=== PATIENT | female | born 1975 | race Caucasian/White ===

== ENCOUNTER 2018-02-02 19:50 | Inpatient (IN) | payer OTHER ==
[2018-02-02] MEDS: SOD CHLORIDE 0.9% 1,000 ML IV (22:34)
[2018-02-02 22:52] LABS: URINE PH (Dip) POC 7.5 (5.0-8.5)
[2018-02-02 22:52] LABS: URINE BLOOD (Dip) POC Negative (NEGATIVE); URINE GLUCOSE (Dip) POC Negative (NEGATIVE); URINE KETONES (Dip) POC Negative (NEGATIVE); URINE LEUKOCYTE EST (Dip) POC Negative (NEGATIVE); URINE NITRITE (Dip) POC Negative (NEGATIVE); URINE TOTAL PROTEIN POC 1+ (NEGATIVE)
[2018-02-02 22:56] LABS: ADD MAN DIFF? NO
[2018-02-02 23:00] LABS: ABNORMAL IP MESSAGE 1; BASOPHILS % 0.1 % (0.0-2.0); EOSINOPHILS # 0.2 10^3/ul (0.0-0.5); EOSINOPHILS % 2.7 % (0.0-7.0); HEMATOCRIT 20.7 % (37.0-47.0); LYMPHOCYTES # 0.6 10^3/ul (0.8-2.9); LYMPHOCYTES % 7.2 % (15.0-51.0); MEAN CORPUSCULAR HEMOGLOBIN 20.5 pg (29.0-33.0); MEAN CORPUSCULAR HGB CONC 29.5 g/dl (32.0-37.0); MEAN CORPUSCULAR VOLUME 69.5 fl (82.0-101.0); MEAN PLATELET VOLUME 9.3 fl (7.4-10.4); MONOCYTE # 0.7 10^3/ul (0.3-0.9); MONOCYTES % 8.2 % (0.0-11.0); NEUTROPHIL # 6.5 10^3/ul (1.6-7.5); NEUTROPHILS % 81.3 % (39.0-77.0); PLATELET COUNT 511 10^3/UL (140-415); RED BLOOD COUNT 2.98 10^6/ul (4.20-5.40); RED CELL DISTRIBUTION WIDTH 15.7 % (11.5-14.5)
[2018-02-02 23:05] LABS: HEMOGLOBIN 6.1 g/dl (12.0-16.0); POSITIVE DIFF @See below
[2018-02-02 23:20] LABS: INR 0.87; PARTIAL THROMBOPLASTIN TIME 36.4 Sec (25.0-35.0); PROTIME 11.9 Sec (11.9-14.9); PT RATIO 0.9
[2018-02-02 23:24] LABS: ALANINE AMINOTRANSFERASE 32 IU/L (13-69); ALBUMIN 4.1 g/dl (3.3-4.9); ALBUMIN/GLOBULIN RATIO 1.17; ALKALINE PHOSPHATASE 89 IU/L (42-121); ANION GAP 24 (8-16); ASPARTATE AMINO TRANSFERASE 41 IU/L (15-46); BLOOD UREA NITROGEN 25 mg/dl (7-20); CALCIUM 9.3 mg/dl (8.4-10.2); CHLORIDE 66 mmol/L (97-110); CREATININE 1.11 mg/dl (0.44-1.00); GLUCOSE 128 mg/dl (70-220); SODIUM 128 mmol/L (135-144); TOTAL PROTEIN 7.6 g/dl (6.1-8.1)
[2018-02-02 23:30] LABS: POTASSIUM 2.3 mmol/L (3.5-5.1)
[2018-02-02 23:33] LABS: CARBON DIOXIDE 48 mmol/L (21-31)
[2018-02-02 23:39] LABS: TROPONIN-I < 0.012 ng/ml (0.00-0.12)
[2018-02-03] MEDS ORDERED: ACETAMINOPHEN 325 MG TAB PO (01:00)
[2018-02-03] MEDS ORDERED: ONDANSETRON 4 MG INJ IV (01:00)
[2018-02-03] MEDS: POTASSIUM CHLORIDE 100 ML IVPB ×4 (01:44→08:47)
[2018-02-03 04:13] LABS: IMMEDIATE SPIN CROSSMATCH 1 2
[2018-02-03] MEDS: POTASSIUM CHLORIDE 40 MEQ in SOD CHLORIDE 0.9% 1,000 ML IV ×3 (07:00→20:36)
[2018-02-03 10:19] LABS: OCCULT BLOOD STOOL POSITIVE (NEGATIVE)
[2018-02-03 15:28] LABS: ADD MAN DIFF? NO
[2018-02-03 15:31] LABS: ABNORMAL IP MESSAGE 1; BASOPHILS % 0.4 % (0.0-2.0); EOSINOPHILS # 0.3 10^3/ul (0.0-0.5); EOSINOPHILS % 4.9 % (0.0-7.0); HEMATOCRIT 29.4 % (37.0-47.0); HEMOGLOBIN 9.4 g/dl (12.0-16.0); LYMPHOCYTES # 0.6 10^3/ul (0.8-2.9); LYMPHOCYTES % 8.5 % (15.0-51.0); MEAN CORPUSCULAR HEMOGLOBIN 24.5 pg (29.0-33.0); MEAN CORPUSCULAR VOLUME 76.8 fl (82.0-101.0); MEAN PLATELET VOLUME 9.4 fl (7.4-10.4); MONOCYTE # 0.5 10^3/ul (0.3-0.9); MONOCYTES % 7.5 % (0.0-11.0); NEUTROPHIL # 5.5 10^3/ul (1.6-7.5); NEUTROPHILS % 78.3 % (39.0-77.0); PLATELET COUNT 390 10^3/UL (140-415); RED BLOOD COUNT 3.83 10^6/ul (4.20-5.40); RED CELL DISTRIBUTION WIDTH 17.4 % (11.5-14.5)
[2018-02-03 15:40] LABS: POSITIVE DIFF @See below
[2018-02-03 15:51] LABS: INR 0.91; PROTIME 12.3 Sec (11.9-14.9)
[2018-02-03 15:52] LABS: PARTIAL THROMBOPLASTIN TIME 26.7 Sec (25.0-35.0)
[2018-02-03] MEDS ORDERED: SOD CHLORIDE 0.9% 1,000 ML IV (16:00)
[2018-02-03 16:01] LABS: ANION GAP 14 (8-16); BLOOD UREA NITROGEN 18 mg/dl (7-20); CALCIUM 8.7 mg/dl (8.4-10.2); CARBON DIOXIDE 40 mmol/L (21-31); CHLORIDE 88 mmol/L (97-110); GLUCOSE 140 mg/dl (70-220); POTASSIUM 3.6 mmol/L (3.5-5.1); SODIUM 138 mmol/L (135-144)
[2018-02-03] MEDS: CYANOCOBALAMIN 1000 MCG INJ IM (17:24)
[2018-02-03] MEDS: hydrOXYzine HCL 10 MG TAB PO (20:51)
[2018-02-03] MEDS: POTASSIUM CHLORIDE (SR) 20 MEQ TAB PO (20:51)
[2018-02-03] MEDS: FAMOTIDINE 20 MG TAB PO (20:51)
[2018-02-03] MEDS: MAGNESIUM OXIDE 400 MG TAB PO (20:51)
[2018-02-03] MEDS: HYDROCORTISONE 1% 28 GM CR TOP (20:52)
[2018-02-03] MEDS ORDERED: FLUOCINONIDE 0.05% CR 30GM TUBE TOP (21:00)
[2018-02-03] MEDS: FLUOCINONIDE 0.05% 15 GM CR TOP (22:47)
[2018-02-04] MEDS: POTASSIUM CHLORIDE 40 MEQ in SOD CHLORIDE 0.9% 1,000 ML IV ×2 (03:20→21:17)
[2018-02-04] MEDS: FAMOTIDINE 20 MG TAB PO ×2 (09:10→20:46)
[2018-02-04] MEDS: MAGNESIUM OXIDE 400 MG TAB PO ×2 (09:10→20:47)
[2018-02-04] MEDS: CHOLECALCIFEROL 2,000 UNIT CAP PO (09:10)
[2018-02-04] MEDS: POTASSIUM CHLORIDE (SR) 20 MEQ TAB PO ×2 (09:11→20:47)
[2018-02-04] MEDS: FOLIC ACID 0.4 MG TAB PO (09:11)
[2018-02-04] MEDS: FLUOCINONIDE 0.05% 15 GM CR TOP ×3 (09:12→20:54)
[2018-02-04] MEDS: HYDROCORTISONE 1% 28 GM CR TOP ×2 (09:12→20:54)
[2018-02-04 14:34] LABS: MAGNESIUM 1.7 mg/dl (1.7-2.5)
[2018-02-04] MEDS: hydrOXYzine HCL 10 MG TAB PO (20:47)
[2018-02-04] MEDS: METHYLPREDNISOLONE 40 MG INJ IV (21:00)
[2018-02-04] MEDS ORDERED: FLUOCINONIDE 0.05% 15 GM CR TOP (21:00)
[2018-02-04] MEDS: LORATADINE 10 MG TAB PO (22:00)
[2018-02-04] MEDS: FLUOCINONIDE 0.05% 15 GM OINT TOP (22:00)
[2018-02-05] MEDS: POTASSIUM CHLORIDE 40 MEQ in SOD CHLORIDE 0.9% 1,000 ML IV (05:29)
[2018-02-05 07:26] LABS: ADD MAN DIFF? NO
[2018-02-05 07:35] LABS: ABNORMAL IP MESSAGE 1; BASOPHILS % 0.1 % (0.0-2.0); HEMATOCRIT 30.9 % (37.0-47.0); HEMOGLOBIN 9.4 g/dl (12.0-16.0); LYMPHOCYTES # 0.3 10^3/ul (0.8-2.9); LYMPHOCYTES % 3.3 % (15.0-51.0); MEAN CORPUSCULAR HEMOGLOBIN 24.6 pg (29.0-33.0); MEAN CORPUSCULAR HGB CONC 30.4 g/dl (32.0-37.0); MEAN CORPUSCULAR VOLUME 80.9 fl (82.0-101.0); MEAN PLATELET VOLUME 9.2 fl (7.4-10.4); MONOCYTES % 0.4 % (0.0-11.0); NEUTROPHIL # 8.8 10^3/ul (1.6-7.5); NEUTROPHILS % 95.8 % (39.0-77.0); PLATELET COUNT 330 10^3/UL (140-415); RED BLOOD COUNT 3.82 10^6/ul (4.20-5.40); RED CELL DISTRIBUTION WIDTH 18.8 % (11.5-14.5)
[2018-02-05 07:35] LABS: WHITE BLOOD COUNT 9.2 10^3/ul (4.8-10.8)
[2018-02-05 07:40] LABS: POSITIVE DIFF @See below
[2018-02-05 07:44] LABS: ANION GAP 15 (8-16); BLOOD UREA NITROGEN 23 mg/dl (7-20); CALCIUM 8.7 mg/dl (8.4-10.2); CARBON DIOXIDE 26 mmol/L (21-31); CHLORIDE 110 mmol/L (97-110); CREATININE 0.81 mg/dl (0.44-1.00); GLUCOSE 164 mg/dl (70-220); POTASSIUM 5.3 mmol/L (3.5-5.1); SODIUM 146 mmol/L (135-144)
[2018-02-05 07:45] LABS: MAGNESIUM 1.6 mg/dl (1.7-2.5)
[2018-02-05] MEDS: METHYLPREDNISOLONE 40 MG INJ IV ×2 (08:52→21:10)
[2018-02-05] MEDS: FOLIC ACID 0.4 MG TAB PO (08:53)
[2018-02-05] MEDS: POTASSIUM CHLORIDE (SR) 20 MEQ TAB PO (08:53)
[2018-02-05] MEDS: FAMOTIDINE 20 MG TAB PO ×2 (08:53→21:10)
[2018-02-05] MEDS: CHOLECALCIFEROL 2,000 UNIT CAP PO (08:53)
[2018-02-05] MEDS: MAGNESIUM OXIDE 400 MG TAB PO ×2 (08:53→21:10)
[2018-02-05] MEDS: LORATADINE 10 MG TAB PO (08:53)
[2018-02-05] MEDS: HYDROCORTISONE 1% 28 GM CR TOP ×2 (09:04→22:17)
[2018-02-05] MEDS: FLUOCINONIDE 0.05% 15 GM OINT TOP ×3 (09:08→22:16)
[2018-02-05] MEDS: SOD CHLORIDE 0.9% 1,000 ML IV (10:39)
[2018-02-05] MEDS: NA POLYST SULFON 15 GM/60 ML BTL PO (10:39)
[2018-02-05 16:53] LABS: ANION GAP 16 (8-16); BLOOD UREA NITROGEN 22 mg/dl (7-20); CALCIUM 8.9 mg/dl (8.4-10.2); CARBON DIOXIDE 26 mmol/L (21-31); CHLORIDE 109 mmol/L (97-110); GLUCOSE 148 mg/dl (70-220); POTASSIUM 4.5 mmol/L (3.5-5.1); SODIUM 146 mmol/L (135-144)
[2018-02-05] MEDS: LORAZEPAM 2 MG INJ IV (17:38)
[2018-02-05] MEDS: MAGNESIUM SULFATE 1 GM/D5W 100 ML IVPB (17:40)
[2018-02-05] MEDS: hydrOXYzine HCL 10 MG TAB PO (21:19)
[2018-02-06] MEDS: SOD CHLORIDE 0.9% 1,000 ML IV ×2 (05:14→19:20)
[2018-02-06 05:32] LABS: ADD MAN DIFF? NO
[2018-02-06 05:35] LABS: ABNORMAL IP MESSAGE 1; BASOPHILS % 0.1 % (0.0-2.0); HEMATOCRIT 31.7 % (37.0-47.0); HEMOGLOBIN 9.6 g/dl (12.0-16.0); LYMPHOCYTES # 0.4 10^3/ul (0.8-2.9); MEAN CORPUSCULAR HEMOGLOBIN 24.7 pg (29.0-33.0); MEAN CORPUSCULAR HGB CONC 30.3 g/dl (32.0-37.0); MEAN CORPUSCULAR VOLUME 81.7 fl (82.0-101.0); MEAN PLATELET VOLUME 9.1 fl (7.4-10.4); MONOCYTE # 0.2 10^3/ul (0.3-0.9); MONOCYTES % 1.6 % (0.0-11.0); NEUTROPHIL # 13.5 10^3/ul (1.6-7.5); NEUTROPHILS % 94.7 % (39.0-77.0); PLATELET COUNT 320 10^3/UL (140-415); RED BLOOD COUNT 3.88 10^6/ul (4.20-5.40); RED CELL DISTRIBUTION WIDTH 19.9 % (11.5-14.5)
[2018-02-06 05:35] LABS: WHITE BLOOD COUNT 14.2 10^3/ul (4.8-10.8)
[2018-02-06 05:50] LABS: POSITIVE DIFF @See below
[2018-02-06 06:02] LABS: ANION GAP 14 (8-16); BLOOD UREA NITROGEN 24 mg/dl (7-20); CALCIUM 9.4 mg/dl (8.4-10.2); CARBON DIOXIDE 26 mmol/L (21-31); CHLORIDE 110 mmol/L (97-110); CREATININE 0.77 mg/dl (0.44-1.00); GLUCOSE 111 mg/dl (70-220); POTASSIUM 5.4 mmol/L (3.5-5.1); SODIUM 145 mmol/L (135-144)
[2018-02-06] MEDS: FOLIC ACID 0.4 MG TAB PO (09:13)
[2018-02-06] MEDS: LORATADINE 10 MG TAB PO (09:13)
[2018-02-06] MEDS: MAGNESIUM OXIDE 400 MG TAB PO ×2 (09:15→20:43)
[2018-02-06] MEDS: FAMOTIDINE 20 MG TAB PO ×2 (09:15→20:43)
[2018-02-06] MEDS: CHOLECALCIFEROL 2,000 UNIT CAP PO (09:15)
[2018-02-06] MEDS: NA POLYST SULFON 15 GM/60 ML BTL PO (09:16)
[2018-02-06] MEDS: METHYLPREDNISOLONE 40 MG INJ IV ×2 (09:17→20:43)
[2018-02-06] MEDS: FLUOCINONIDE 0.05% 15 GM OINT TOP ×3 (09:20→20:44)
[2018-02-06] MEDS: HYDROCORTISONE 1% 28 GM CR TOP ×2 (09:21→20:44)
[2018-02-07] MEDS: SOD CHLORIDE 0.9% 1,000 ML IV ×2 (04:48→23:47)
[2018-02-07 07:11] LABS: ANION GAP 13 (8-16); BLOOD UREA NITROGEN 21 mg/dl (7-20); CARBON DIOXIDE 27 mmol/L (21-31); CHLORIDE 104 mmol/L (97-110); CREATININE 0.71 mg/dl (0.44-1.00); GLUCOSE 111 mg/dl (70-220); POTASSIUM 4.3 mmol/L (3.5-5.1); SODIUM 140 mmol/L (135-144)
[2018-02-07] MEDS: CHOLECALCIFEROL 2,000 UNIT CAP PO (08:27)
[2018-02-07] MEDS: HYDROCORTISONE 1% 28 GM CR TOP ×2 (08:27→20:18)
[2018-02-07] MEDS: FLUOCINONIDE 0.05% 15 GM OINT TOP ×3 (08:27→20:18)
[2018-02-07] MEDS: FAMOTIDINE 20 MG TAB PO ×2 (08:27→20:24)
[2018-02-07] MEDS: MAGNESIUM OXIDE 400 MG TAB PO ×2 (08:27→20:24)
[2018-02-07] MEDS: FOLIC ACID 0.4 MG TAB PO (08:27)
[2018-02-07] MEDS: LORATADINE 10 MG TAB PO (08:27)
[2018-02-07] MEDS: METHYLPREDNISOLONE 40 MG INJ IV ×2 (09:21→20:24)
[2018-02-07] MEDS ORDERED: PROPOFOL 40 ML (11:54)
[2018-02-07] MEDS ORDERED: LIDOCAINE 2% (SDV) 5 ML INJ (11:54)
[2018-02-07] MEDS: DIPHENHYDRAMINE 50 MG INJ IV (23:47)
[2018-02-08 05:19] LABS: ANION GAP 14 (8-16); BLOOD UREA NITROGEN 23 mg/dl (7-20); CALCIUM 8.2 mg/dl (8.4-10.2); CARBON DIOXIDE 25 mmol/L (21-31); CHLORIDE 106 mmol/L (97-110); CREATININE 0.62 mg/dl (0.44-1.00); GLUCOSE 116 mg/dl (70-220); POTASSIUM 3.9 mmol/L (3.5-5.1); SODIUM 141 mmol/L (135-144)
[2018-02-08 07:11] LABS: ADD MAN DIFF? NO
[2018-02-08 07:13] LABS: WHITE BLOOD COUNT 8.4 10^3/ul (4.8-10.8)
[2018-02-08 07:13] LABS: ABNORMAL IP MESSAGE 1; HEMATOCRIT 29.1 % (37.0-47.0); HEMOGLOBIN 8.9 g/dl (12.0-16.0); LYMPHOCYTES # 0.4 10^3/ul (0.8-2.9); LYMPHOCYTES % 4.9 % (15.0-51.0); MEAN CORPUSCULAR HEMOGLOBIN 24.5 pg (29.0-33.0); MEAN CORPUSCULAR HGB CONC 30.6 g/dl (32.0-37.0); MEAN CORPUSCULAR VOLUME 80.2 fl (82.0-101.0); MEAN PLATELET VOLUME 9.5 fl (7.4-10.4); MONOCYTE # 0.2 10^3/ul (0.3-0.9); MONOCYTES % 2.3 % (0.0-11.0); NEUTROPHIL # 7.7 10^3/ul (1.6-7.5); NEUTROPHILS % 92.2 % (39.0-77.0); PLATELET COUNT 240 10^3/UL (140-415); RED BLOOD COUNT 3.63 10^6/ul (4.20-5.40); RED CELL DISTRIBUTION WIDTH 19.2 % (11.5-14.5)
[2018-02-08 07:20] LABS: POSITIVE DIFF @See below
[2018-02-08] MEDS: FAMOTIDINE 20 MG TAB PO ×2 (08:50→20:49)
[2018-02-08] MEDS: LORATADINE 10 MG TAB PO (08:50)
[2018-02-08] MEDS: HYDROCORTISONE 1% 28 GM CR TOP ×2 (08:51→20:48)
[2018-02-08] MEDS: METHYLPREDNISOLONE 40 MG INJ IV ×2 (08:51→20:49)
[2018-02-08] MEDS: MAGNESIUM OXIDE 400 MG TAB PO ×2 (08:51→20:49)
[2018-02-08] MEDS: FOLIC ACID 0.4 MG TAB PO (08:51)
[2018-02-08] MEDS: FLUOCINONIDE 0.05% 15 GM OINT TOP ×3 (08:51→20:48)
[2018-02-08] MEDS: CHOLECALCIFEROL 2,000 UNIT CAP PO (08:51)
[2018-02-08] MEDS: SOD CHLORIDE 0.9% 1,000 ML IV (21:20)
[2018-02-08] MEDS: HEPARIN (100 UNITS/ML) 5 ML SYG CATHETER (22:27)
== END 2018-02-08 22:50 | disposition home health service (06) | DRG 812 ==
LOC: TEL 02-03 00:40 → PP2 02-05 14:40 → E/R 19:50 → TEL 02-03 02:57 → PP2 02-05 23:53
PROC: 0DB68ZX Excision of Stomach, Via Natural or Artificial Opening Endoscopic, Diagnostic (ICD-10-PCS; principal; 2018-02-07 11:08)
PROC: 30233N1 Transfusion of Nonautologous Red Blood Cells into Peripheral Vein, Percutaneous Approach (ICD-10-PCS; 2018-02-07 11:08)
DX: D62 Acute posthemorrhagic anemia (principal); N17.9 Acute kidney failure, unspecified; E87.1 Hypo-osmolality and hyponatremia; E87.3 Alkalosis; E87.0 Hyperosmolality and hypernatremia; E87.2 Acidosis; E86.0 Dehydration; E87.6 Hypokalemia; K29.60 Other gastritis without bleeding; Z90.49 Acquired absence of other specified parts of digestive tract; R11.0 Nausea; E53.8 Deficiency of other specified B group vitamins; Z93.2 Ileostomy status
CPT/HCPCS: 36415; 36430; 80048; 80053; 81003; 81025; 82270; 83735; 84484; 85025; 85610; 85730; 86850; 86900; 86901; 86920; 88305; 88312; 93005; 99291-25

== ENCOUNTER 2018-06-16 19:58 | Inpatient (IN) | payer OTHER ==
[2018-06-16] MEDS: morphine 4 MG/ML VIAL IV (20:37)
[2018-06-16] MEDS: LACTATED RINGER'S 1,000 ML IV ×2 (21:01→22:48)
[2018-06-16 21:03] LABS: ADD MAN DIFF? NO
[2018-06-16 21:22] LABS: WHITE BLOOD COUNT 12.6 10^3/ul (4.8-10.8)
[2018-06-16 21:22] LABS: BASOPHILS % 0.3 % (0.0-2.0); EOSINOPHILS # 0.9 10^3/ul (0.0-0.5); EOSINOPHILS % 7.4 % (0.0-7.0); HEMATOCRIT 39.3 % (37.0-47.0); HEMOGLOBIN 12.1 g/dl (12.0-16.0); LYMPHOCYTES # 0.6 10^3/ul (0.8-2.9); LYMPHOCYTES % 4.9 % (15.0-51.0); MEAN CORPUSCULAR HEMOGLOBIN 27.6 pg (29.0-33.0); MEAN CORPUSCULAR HGB CONC 30.8 g/dl (32.0-37.0); MEAN CORPUSCULAR VOLUME 89.5 fl (82.0-101.0); MEAN PLATELET VOLUME 9.2 fl (7.4-10.4); MONOCYTE # 0.5 10^3/ul (0.3-0.9); MONOCYTES % 4.1 % (0.0-11.0); NEUTROPHIL # 10.4 10^3/ul (1.6-7.5); NEUTROPHILS % 82.4 % (39.0-77.0); PLATELET COUNT 641 10^3/UL (140-415); RED BLOOD COUNT 4.39 10^6/ul (4.20-5.40); RED CELL DISTRIBUTION WIDTH 14.8 % (11.5-14.5)
[2018-06-16 21:44] LABS: ALANINE AMINOTRANSFERASE 47 IU/L (13-69); ALBUMIN 4.9 g/dl (3.3-4.9); ALBUMIN/GLOBULIN RATIO 1.28; ALKALINE PHOSPHATASE 83 IU/L (42-121); ANION GAP 19 (8-16); ASPARTATE AMINO TRANSFERASE 49 IU/L (15-46); BILIRUBIN,INDIRECT 0.1 mg/dl (0-1.1); BILIRUBIN,TOTAL 0.1 mg/dl (0.2-1.3); BLOOD UREA NITROGEN 42 mg/dl (7-20); CALCIUM 9.7 mg/dl (8.4-10.2); CARBON DIOXIDE 25 mmol/L (21-31); CHLORIDE 91 mmol/L (97-110); CREATININE 3.79 mg/dl (0.44-1.00); GLUCOSE 288 mg/dl (70-220); LIPASE 73 U/L (23-300); POTASSIUM 5.2 mmol/L (3.5-5.1); SODIUM 130 mmol/L (135-144); TOTAL PROTEIN 8.7 g/dl (6.1-8.1)
[2018-06-16 21:54] LABS: LACTIC ACID 4.1 mmol/L (0.5-2.0)
[2018-06-16 21:54] LABS: TROPONIN-I < 0.010 ng/ml (0.000-0.120)
[2018-06-16 22:18] LABS: INR 0.87; PROTIME 11.9 Sec (11.9-14.9); PT RATIO 0.9
[2018-06-16 22:19] LABS: PARTIAL THROMBOPLASTIN TIME 33.1 Sec (25.0-35.0)
[2018-06-16 22:25] LABS: ADD UMIC YES; UR ASCORBIC ACID NEGATIVE (NEGATIVE); UR BACTERIA MODERATE /HPF (NONE SEEN); UR BILIRUBIN (Dip) 2+ mg/dL (NEGATIVE); UR BLOOD (Dip) NEGATIVE (NEGATIVE); UR CLARITY CLOUDY (CLEAR); UR COLOR AMBER (YELLOW); UR GLUCOSE (Dip) NEGATIVE (NEGATIVE); UR HYALINE CAST MODERATE /HPF (NONE SEEN); UR KETONES (Dip) TRACE mg/dL (NEGATIVE); UR LEUKOCYTE ESTERASE (Dip) 1+ Leu/ul (NEGATIVE); UR MUCUS FEW /HPF (NONE SEEN); UR NITRITE (Dip) NEGATIVE (NEGATIVE); UR NONSQUAMOUS EPITHELIAL CELL 1 /HPF (NONE SEEN); UR RBC 2 /HPF (0-5); UR SPECIFIC GRAVITY (Dip) 1.024 (1.003-1.030); UR SQUAMOUS EPITHELIAL CELL MODERATE /HPF (FEW); UR TOTAL PROTEIN (Dip) 2+ mg/dl (NEGATIVE); UR UROBILINOGEN (Dip) 2+ mg/dL (NEGATIVE); UR WBC 9 /HPF (0-5)
[2018-06-16] MEDS ORDERED: NACL 0.9% 3 ML SYG IV (23:00)
[2018-06-16] MEDS ORDERED: morphine 2 MG INJ IV (23:00)
[2018-06-16] MEDS: CEFEPIME 1GM/50 ML (PMX) 50 ML IVPB (23:02)
[2018-06-16] MEDS: SOD CHLORIDE 0.9% 1,000 ML IV (23:24)
[2018-06-17] MEDS: SOD CHLORIDE 0.9% 1,000 ML IV ×4 (00:21→22:35)
[2018-06-17 03:10] LABS: LACTIC ACID 3.1 mmol/L (0.5-2.0)
[2018-06-17] MEDS ORDERED: VITAMIN A & D 5 GM OINT PACKET TOP ×2 (04:20→15:04)
[2018-06-17 07:34] LABS: ADD MAN DIFF? NO
[2018-06-17 07:50] LABS: HEMOGLOBIN A1C 5.1 % (0-5.9)
[2018-06-17 07:58] LABS: ALANINE AMINOTRANSFERASE 37 IU/L (13-69); ALBUMIN 2.4 g/dl (3.3-4.9); ALBUMIN/GLOBULIN RATIO 0.92; ALKALINE PHOSPHATASE 46 IU/L (42-121); ANION GAP 6 (8-16); ASPARTATE AMINO TRANSFERASE 27 IU/L (15-46); BILIRUBIN,INDIRECT 0.2 mg/dl (0-1.1); BILIRUBIN,TOTAL 0.2 mg/dl (0.2-1.3); BLOOD UREA NITROGEN 26 mg/dl (7-20); CALCIUM 6.1 mg/dl (8.4-10.2); CARBON DIOXIDE 20 mmol/L (21-31); CHLORIDE 116 mmol/L (97-110); CREATININE 1.11 mg/dl (0.44-1.00); GLUCOSE 72 mg/dl (70-220); POTASSIUM 3.3 mmol/L (3.5-5.1); SODIUM 139 mmol/L (135-144)
[2018-06-17 08:11] LABS: BASOPHILS % 0.5 % (0.0-2.0); EOSINOPHILS # 1.5 10^3/ul (0.0-0.5); EOSINOPHILS % 17.5 % (0.0-7.0); HEMATOCRIT 33.7 % (37.0-47.0); HEMOGLOBIN 10.6 g/dl (12.0-16.0); LYMPHOCYTES # 0.8 10^3/ul (0.8-2.9); LYMPHOCYTES % 9.5 % (15.0-51.0); MEAN CORPUSCULAR HEMOGLOBIN 28.3 pg (29.0-33.0); MEAN CORPUSCULAR HGB CONC 31.5 g/dl (32.0-37.0); MEAN CORPUSCULAR VOLUME 90.1 fl (82.0-101.0); MEAN PLATELET VOLUME 8.8 fl (7.4-10.4); MONOCYTE # 0.6 10^3/ul (0.3-0.9); MONOCYTES % 6.9 % (0.0-11.0); NEUTROPHIL # 5.5 10^3/ul (1.6-7.5); NEUTROPHILS % 64.8 % (39.0-77.0); PLATELET COUNT 462 10^3/UL (140-415); RED BLOOD COUNT 3.74 10^6/ul (4.20-5.40); RED CELL DISTRIBUTION WIDTH 15.3 % (11.5-14.5)
[2018-06-17 08:11] LABS: WHITE BLOOD COUNT 8.5 10^3/ul (4.8-10.8)
[2018-06-17] MEDS: FAMOTIDINE 20 MG INJ IV (09:42)
[2018-06-17] MEDS: ENOXAPARIN 30 MG/0.3 ML SYG SC (09:48)
[2018-06-17] MEDS: CYANOCOBALAMIN 1000 MCG INJ IM (20:49)
[2018-06-17] MEDS: MAGNESIUM OXIDE 400 MG TAB PO (20:50)
[2018-06-17] MEDS: FAMOTIDINE 20 MG TAB PO (20:50)
[2018-06-17] MEDS: FLUTICASONE 0.05% 16 GM NAS SPRAY NASAL (20:50)
[2018-06-17] MEDS: FLUOCINONIDE 0.05% CR 30GM TUBE TOP (20:51)
[2018-06-17] MEDS: hydrOXYzine HCL 10 MG TAB NGT (20:56)
[2018-06-17] MEDS: ALBUTEROL HFA 8 GM INHALER INH (20:59)
[2018-06-18] MEDS: ALBUTEROL HFA 8 GM INHALER INH ×6 (01:00→21:10)
[2018-06-18] MEDS ORDERED: VANCOMYCIN IV PER PHARMACY XX (01:30)
[2018-06-18] MEDS: VANCOMYCIN 750 MG in SOD CHLORIDE 0.9% 150 ML IVPB (02:45)
[2018-06-18] MEDS: SOD CHLORIDE 0.9% 1,000 ML IV ×3 (06:30→22:35)
[2018-06-18 08:18] LABS: ADD MAN DIFF? NO
[2018-06-18 08:21] LABS: WHITE BLOOD COUNT 5.6 10^3/ul (4.8-10.8)
[2018-06-18 08:21] LABS: ABNORMAL IP MESSAGE 1; BASOPHILS % 0.7 % (0.0-2.0); EOSINOPHILS # 1.4 10^3/ul (0.0-0.5); EOSINOPHILS % 25.3 % (0.0-7.0); HEMATOCRIT 30.9 % (37.0-47.0); HEMOGLOBIN 9.3 g/dl (12.0-16.0); LYMPHOCYTES # 0.5 10^3/ul (0.8-2.9); LYMPHOCYTES % 8.6 % (15.0-51.0); MEAN CORPUSCULAR HEMOGLOBIN 27.9 pg (29.0-33.0); MEAN CORPUSCULAR HGB CONC 30.1 g/dl (32.0-37.0); MEAN CORPUSCULAR VOLUME 92.8 fl (82.0-101.0); MEAN PLATELET VOLUME 8.8 fl (7.4-10.4); MONOCYTE # 0.4 10^3/ul (0.3-0.9); MONOCYTES % 7.4 % (0.0-11.0); NEUTROPHIL # 3.2 10^3/ul (1.6-7.5); NEUTROPHILS % 57.3 % (39.0-77.0); PLATELET COUNT 398 10^3/UL (140-415); RED BLOOD COUNT 3.33 10^6/ul (4.20-5.40); RED CELL DISTRIBUTION WIDTH 15.2 % (11.5-14.5)
[2018-06-18 08:28] LABS: POSITIVE DIFF @See below
[2018-06-18 08:38] LABS: ANION GAP 9 (8-16); BLOOD UREA NITROGEN 20 mg/dl (7-20); CALCIUM 8.3 mg/dl (8.4-10.2); CARBON DIOXIDE 24 mmol/L (21-31); CHLORIDE 111 mmol/L (97-110); CREATININE 0.85 mg/dl (0.44-1.00); GLUCOSE 92 mg/dl (70-220); POTASSIUM 4.1 mmol/L (3.5-5.1); SODIUM 140 mmol/L (135-144)
[2018-06-18] MEDS: FAMOTIDINE 20 MG INJ IV (09:00)
[2018-06-18] MEDS ORDERED: FOLIC ACID 0.4 MG TAB PO (09:00)
[2018-06-18] MEDS: hydrOXYzine HCL 10 MG TAB NGT ×3 (09:20→21:10)
[2018-06-18] MEDS: FAMOTIDINE 20 MG TAB PO ×2 (09:20→21:10)
[2018-06-18] MEDS: FLUTICASONE 0.05% 16 GM NAS SPRAY NASAL ×2 (09:21→21:10)
[2018-06-18] MEDS: CHOLECALCIFEROL 2,000 UNIT CAP PO (09:21)
[2018-06-18] MEDS: FOLIC ACID 1 MG TAB PO (09:21)
[2018-06-18] MEDS: MAGNESIUM OXIDE 400 MG TAB PO ×2 (09:21→21:10)
[2018-06-18] MEDS: FLUOCINONIDE 0.05% CR 30GM TUBE TOP ×3 (09:22→21:12)
[2018-06-18] MEDS: ENOXAPARIN 30 MG/0.3 ML SYG SC (09:30)
[2018-06-19] MEDS: SOD CHLORIDE 0.9% 1,000 ML IV ×3 (00:29→22:35)
[2018-06-19] MEDS: ALBUTEROL HFA 8 GM INHALER INH ×6 (01:31→21:00)
[2018-06-19] MEDS: VANCOMYCIN 1 GM 250 ML IVPB (01:31)
[2018-06-19] MEDS ORDERED: VANCOMYCIN 500MG/NS (PMX) 100 ML IVPB (02:00)
[2018-06-19] MEDS: FAMOTIDINE 20 MG INJ IV (09:00)
[2018-06-19 09:03] LABS: ADD MAN DIFF? NO
[2018-06-19 09:12] LABS: WHITE BLOOD COUNT 4.3 10^3/ul (4.8-10.8)
[2018-06-19 09:12] LABS: ABNORMAL IP MESSAGE 1; BASOPHILS % 0.7 % (0.0-2.0); EOSINOPHILS % 22.9 % (0.0-7.0); HEMATOCRIT 28.2 % (37.0-47.0); HEMOGLOBIN 8.5 g/dl (12.0-16.0); LYMPHOCYTES # 0.6 10^3/ul (0.8-2.9); LYMPHOCYTES % 13.6 % (15.0-51.0); MEAN CORPUSCULAR HEMOGLOBIN 28.1 pg (29.0-33.0); MEAN CORPUSCULAR HGB CONC 30.1 g/dl (32.0-37.0); MEAN CORPUSCULAR VOLUME 93.4 fl (82.0-101.0); MEAN PLATELET VOLUME 9.3 fl (7.4-10.4); MONOCYTE # 0.3 10^3/ul (0.3-0.9); MONOCYTES % 7.9 % (0.0-11.0); NEUTROPHIL # 2.3 10^3/ul (1.6-7.5); NEUTROPHILS % 54.4 % (39.0-77.0); PLATELET COUNT 354 10^3/UL (140-415); RED BLOOD COUNT 3.02 10^6/ul (4.20-5.40); RED CELL DISTRIBUTION WIDTH 15.5 % (11.5-14.5)
[2018-06-19 09:18] LABS: POSITIVE DIFF @See below
[2018-06-19 09:41] LABS: ANION GAP 7 (8-16); BLOOD UREA NITROGEN 15 mg/dl (7-20); CALCIUM 8.2 mg/dl (8.4-10.2); CARBON DIOXIDE 25 mmol/L (21-31); CHLORIDE 113 mmol/L (97-110); CREATININE 0.71 mg/dl (0.44-1.00); GLUCOSE 80 mg/dl (70-220); POTASSIUM 3.8 mmol/L (3.5-5.1); SODIUM 141 mmol/L (135-144)
[2018-06-19] MEDS: FOLIC ACID 1 MG TAB PO (09:49)
[2018-06-19] MEDS: FAMOTIDINE 20 MG TAB PO ×2 (09:49→21:00)
[2018-06-19] MEDS: hydrOXYzine HCL 10 MG TAB NGT ×3 (09:49→21:00)
[2018-06-19] MEDS: MAGNESIUM OXIDE 400 MG TAB PO ×2 (09:49→21:00)
[2018-06-19] MEDS: CHOLECALCIFEROL 2,000 UNIT CAP PO (09:49)
[2018-06-19] MEDS: FLUTICASONE 0.05% 16 GM NAS SPRAY NASAL ×2 (09:50→21:00)
[2018-06-19] MEDS: FLUOCINONIDE 0.05% CR 30GM TUBE TOP ×3 (09:51→21:00)
[2018-06-19] MEDS: ENOXAPARIN 30 MG/0.3 ML SYG SC (09:54)
[2018-06-19] MEDS ORDERED: morphine LIQ (10 MG/5 ML) CUP PO (13:00)
[2018-06-20] MEDS: ALBUTEROL HFA 8 GM INHALER INH ×6 (01:00→20:57)
[2018-06-20] MEDS: SOD CHLORIDE 0.9% 1,000 ML IV ×3 (02:18→22:35)
[2018-06-20] MEDS: VANCOMYCIN 1 GM 250 ML IVPB (02:18)
[2018-06-20 06:35] LABS: ADD MAN DIFF? NO
[2018-06-20 06:40] LABS: ABNORMAL IP MESSAGE 1; BASOPHILS % 0.6 % (0.0-2.0); EOSINOPHILS # 1.1 10^3/ul (0.0-0.5); EOSINOPHILS % 20.3 % (0.0-7.0); HEMOGLOBIN 8.7 g/dl (12.0-16.0); LYMPHOCYTES # 0.6 10^3/ul (0.8-2.9); LYMPHOCYTES % 10.8 % (15.0-51.0); MEAN CORPUSCULAR HEMOGLOBIN 27.8 pg (29.0-33.0); MEAN CORPUSCULAR VOLUME 92.7 fl (82.0-101.0); MEAN PLATELET VOLUME 9.3 fl (7.4-10.4); MONOCYTE # 0.4 10^3/ul (0.3-0.9); MONOCYTES % 7.2 % (0.0-11.0); NEUTROPHIL # 3.3 10^3/ul (1.6-7.5); NEUTROPHILS % 60.7 % (39.0-77.0); PLATELET COUNT 351 10^3/UL (140-415); RED BLOOD COUNT 3.13 10^6/ul (4.20-5.40); RED CELL DISTRIBUTION WIDTH 15.4 % (11.5-14.5)
[2018-06-20 06:40] LABS: WHITE BLOOD COUNT 5.4 10^3/ul (4.8-10.8)
[2018-06-20 07:01] LABS: POSITIVE DIFF @See below
[2018-06-20 07:05] LABS: ANION GAP 7 (8-16); BLOOD UREA NITROGEN 12 mg/dl (7-20); CALCIUM 8.2 mg/dl (8.4-10.2); CARBON DIOXIDE 25 mmol/L (21-31); CHLORIDE 113 mmol/L (97-110); CREATININE 0.72 mg/dl (0.44-1.00); GLUCOSE 94 mg/dl (70-220); POTASSIUM 3.7 mmol/L (3.5-5.1); SODIUM 141 mmol/L (135-144)
[2018-06-20] MEDS: MAGNESIUM OXIDE 400 MG TAB PO ×2 (09:44→20:57)
[2018-06-20] MEDS: FAMOTIDINE 20 MG TAB PO ×2 (09:44→20:56)
[2018-06-20] MEDS: FOLIC ACID 1 MG TAB PO (09:44)
[2018-06-20] MEDS: CHOLECALCIFEROL 2,000 UNIT CAP PO (09:44)
[2018-06-20] MEDS: FLUTICASONE 0.05% 16 GM NAS SPRAY NASAL ×2 (09:44→20:57)
[2018-06-20] MEDS: hydrOXYzine HCL 10 MG TAB NGT ×3 (09:44→20:57)
[2018-06-20] MEDS: FLUOCINONIDE 0.05% CR 30GM TUBE TOP ×3 (09:45→21:00)
[2018-06-20] MEDS: ENOXAPARIN 30 MG/0.3 ML SYG SC (09:59)
[2018-06-21] MEDS: ALBUTEROL HFA 8 GM INHALER INH ×6 (01:00→20:59)
[2018-06-21 01:50] LABS: VANCOMYCIN,TROUGH 8.4 ug/ml (10.0-20.0)
[2018-06-21] MEDS: VANCOMYCIN 1 GM 250 ML IVPB (02:54)
[2018-06-21] MEDS: SOD CHLORIDE 0.9% 1,000 ML IV ×3 (05:41→21:00)
[2018-06-21 10:06] LABS: ADD MAN DIFF? NO
[2018-06-21 10:20] LABS: WHITE BLOOD COUNT 13.7 10^3/ul (4.8-10.8)
[2018-06-21 10:20] LABS: ABNORMAL IP MESSAGE 1; BASOPHIL # 0.1 10^3/ul (0.0-0.1); BASOPHILS % 0.4 % (0.0-2.0); EOSINOPHILS # 1.1 10^3/ul (0.0-0.5); HEMATOCRIT 42.9 % (37.0-47.0); LYMPHOCYTES # 0.4 10^3/ul (0.8-2.9); LYMPHOCYTES % 2.8 % (15.0-51.0); MEAN CORPUSCULAR HEMOGLOBIN 27.3 pg (29.0-33.0); MEAN CORPUSCULAR HGB CONC 30.3 g/dl (32.0-37.0); MEAN CORPUSCULAR VOLUME 90.1 fl (82.0-101.0); MEAN PLATELET VOLUME 10.4 fl (7.4-10.4); MONOCYTE # 0.5 10^3/ul (0.3-0.9); MONOCYTES % 3.8 % (0.0-11.0); NEUTROPHIL # 11.6 10^3/ul (1.6-7.5); NEUTROPHILS % 84.4 % (39.0-77.0); PLATELET COUNT 330 10^3/UL (140-415); RED BLOOD COUNT 4.76 10^6/ul (4.20-5.40); RED CELL DISTRIBUTION WIDTH 14.7 % (11.5-14.5)
[2018-06-21 10:22] LABS: POSITIVE DIFF @See below
[2018-06-21] MEDS: CHOLECALCIFEROL 2,000 UNIT CAP PO (10:48)
[2018-06-21] MEDS: hydrOXYzine HCL 10 MG TAB NGT ×3 (10:48→20:58)
[2018-06-21] MEDS: FLUTICASONE 0.05% 16 GM NAS SPRAY NASAL ×2 (10:48→20:59)
[2018-06-21] MEDS: FAMOTIDINE 20 MG TAB PO ×2 (10:48→20:58)
[2018-06-21] MEDS: MAGNESIUM OXIDE 400 MG TAB PO ×2 (10:48→20:58)
[2018-06-21] MEDS: FOLIC ACID 1 MG TAB PO (10:48)
[2018-06-21] MEDS: FLUOCINONIDE 0.05% CR 30GM TUBE TOP ×3 (10:49→21:00)
[2018-06-21] MEDS: ENOXAPARIN 30 MG/0.3 ML SYG SC (10:57)
[2018-06-21 10:59] LABS: MAGNESIUM 1.4 mg/dl (1.7-2.5)
[2018-06-21 12:58] LABS: ANION GAP 19 (8-16); BLOOD UREA NITROGEN 18 mg/dl (7-20); CALCIUM 11.1 mg/dl (8.4-10.2); CARBON DIOXIDE 16 mmol/L (21-31); CHLORIDE 108 mmol/L (97-110); CREATININE 1.12 mg/dl (0.44-1.00); GLUCOSE 118 mg/dl (70-220); SODIUM 136 mmol/L (135-144)
[2018-06-21 13:11] LABS: POTASSIUM 6.6 mmol/L (3.5-5.1)
[2018-06-21] MEDS: NA POLYST SULFON 15 GM/60 ML BTL PO (18:05)
[2018-06-21] MEDS: SODIUM BICARBONATE (IV ADD) 100 MEQ in DEXTROSE 5% 1,000 ML IV (18:09)
[2018-06-21] MEDS: VANCOMYCIN 500MG/NS (PMX) 100 ML IVPB (19:28)
[2018-06-22] MEDS: ALBUTEROL HFA 8 GM INHALER INH ×3 (01:00→21:00)
[2018-06-22] MEDS: SODIUM BICARBONATE (IV ADD) 100 MEQ in DEXTROSE 5% 1,000 ML IV ×2 (06:15→12:00)
[2018-06-22] MEDS: VANCOMYCIN 500MG/NS (PMX) 100 ML IVPB (06:16)
[2018-06-22 06:54] LABS: ADD MAN DIFF? NO
[2018-06-22 06:59] LABS: BASOPHIL # 0.1 10^3/ul (0.0-0.1); BASOPHILS % 0.7 % (0.0-2.0); EOSINOPHILS # 1.1 10^3/ul (0.0-0.5); EOSINOPHILS % 8.6 % (0.0-7.0); HEMATOCRIT 40.9 % (37.0-47.0); HEMOGLOBIN 12.4 g/dl (12.0-16.0); LYMPHOCYTES # 0.7 10^3/ul (0.8-2.9); LYMPHOCYTES % 5.6 % (15.0-51.0); MEAN CORPUSCULAR HEMOGLOBIN 27.1 pg (29.0-33.0); MEAN CORPUSCULAR HGB CONC 30.3 g/dl (32.0-37.0); MEAN CORPUSCULAR VOLUME 89.5 fl (82.0-101.0); MEAN PLATELET VOLUME 9.6 fl (7.4-10.4); MONOCYTE # 0.9 10^3/ul (0.3-0.9); MONOCYTES % 7.3 % (0.0-11.0); NEUTROPHIL # 9.6 10^3/ul (1.6-7.5); NEUTROPHILS % 77.2 % (39.0-77.0); PLATELET COUNT 522 10^3/UL (140-415); RED BLOOD COUNT 4.57 10^6/ul (4.20-5.40); RED CELL DISTRIBUTION WIDTH 14.6 % (11.5-14.5)
[2018-06-22 06:59] LABS: WHITE BLOOD COUNT 12.4 10^3/ul (4.8-10.8)
[2018-06-22 07:17] LABS: BLOOD UREA NITROGEN 26 mg/dl (7-20)
[2018-06-22 07:17] LABS: CREATININE 3.01 mg/dl (0.44-1.00)
[2018-06-22] MEDS: MAGNESIUM OXIDE 400 MG TAB PO ×2 (08:07→21:42)
[2018-06-22] MEDS: FAMOTIDINE 20 MG TAB PO ×2 (08:07→21:42)
[2018-06-22] MEDS: FLUOCINONIDE 0.05% CR 30GM TUBE TOP ×3 (08:07→21:47)
[2018-06-22] MEDS: CHOLECALCIFEROL 2,000 UNIT CAP PO (08:07)
[2018-06-22] MEDS: hydrOXYzine HCL 10 MG TAB NGT ×3 (08:07→21:43)
[2018-06-22] MEDS: FLUTICASONE 0.05% 16 GM NAS SPRAY NASAL ×2 (08:07→21:44)
[2018-06-22] MEDS: FOLIC ACID 1 MG TAB PO (08:07)
[2018-06-22] MEDS: ENOXAPARIN 30 MG/0.3 ML SYG SC (08:22)
[2018-06-22 15:08] LABS: ANION GAP 16 (8-16); BLOOD UREA NITROGEN 34 mg/dl (7-20); CALCIUM 9.6 mg/dl (8.4-10.2); CARBON DIOXIDE 24 mmol/L (21-31); CHLORIDE 97 mmol/L (97-110); CREATININE 3.74 mg/dl (0.44-1.00); GLUCOSE 131 mg/dl (70-220); POTASSIUM 5.3 mmol/L (3.5-5.1); SODIUM 132 mmol/L (135-144)
[2018-06-23] MEDS: ALBUTEROL HFA 8 GM INHALER INH ×7 (01:00→21:40)
[2018-06-23] MEDS: SODIUM BICARBONATE (IV ADD) 100 MEQ in DEXTROSE 5% 1,000 ML IV ×3 (01:07→13:40)
[2018-06-23] MEDS: SOD CHLORIDE 0.9% 1,000 ML IV (01:40)
[2018-06-23 06:36] LABS: ADD MAN DIFF? NO
[2018-06-23 06:43] LABS: ABNORMAL IP MESSAGE 1; BASOPHIL # 0.1 10^3/ul (0.0-0.1); BASOPHILS % 1.2 % (0.0-2.0); EOSINOPHILS # 0.9 10^3/ul (0.0-0.5); EOSINOPHILS % 9.5 % (0.0-7.0); HEMATOCRIT 31.5 % (37.0-47.0); HEMOGLOBIN 9.9 g/dl (12.0-16.0); LYMPHOCYTES # 0.6 10^3/ul (0.8-2.9); LYMPHOCYTES % 6.5 % (15.0-51.0); MEAN CORPUSCULAR HEMOGLOBIN 27.3 pg (29.0-33.0); MEAN CORPUSCULAR HGB CONC 31.4 g/dl (32.0-37.0); MEAN PLATELET VOLUME 9.5 fl (7.4-10.4); MONOCYTE # 0.9 10^3/ul (0.3-0.9); MONOCYTES % 10.3 % (0.0-11.0); NEUTROPHIL # 6.5 10^3/ul (1.6-7.5); NEUTROPHILS % 71.9 % (39.0-77.0); PLATELET COUNT 396 10^3/UL (140-415); RED BLOOD COUNT 3.62 10^6/ul (4.20-5.40); RED CELL DISTRIBUTION WIDTH 14.6 % (11.5-14.5)
[2018-06-23 06:51] LABS: POSITIVE DIFF @See below
[2018-06-23 07:00] LABS: INR 1.16; PT RATIO 1.2
[2018-06-23 07:11] LABS: PHOSPHORUS 2.2 mg/dl (2.5-4.9)
[2018-06-23 07:11] LABS: MAGNESIUM 1.4 mg/dl (1.7-2.5)
[2018-06-23 07:14] LABS: ALANINE AMINOTRANSFERASE 41 IU/L (13-69); ALBUMIN 3.9 g/dl (3.3-4.9); ALBUMIN/GLOBULIN RATIO 1.18; ALKALINE PHOSPHATASE 79 IU/L (42-121); ANION GAP 14 (8-16); ASPARTATE AMINO TRANSFERASE 38 IU/L (15-46); BLOOD UREA NITROGEN 44 mg/dl (7-20); CALCIUM 8.7 mg/dl (8.4-10.2); CARBON DIOXIDE 27 mmol/L (21-31); CHLORIDE 96 mmol/L (97-110); CREATININE 5.11 mg/dl (0.44-1.00); GLUCOSE 103 mg/dl (70-220); SODIUM 132 mmol/L (135-144); TOTAL PROTEIN 7.2 g/dl (6.1-8.1)
[2018-06-23] MEDS: FOLIC ACID 1 MG TAB PO (08:17)
[2018-06-23] MEDS: FAMOTIDINE 20 MG TAB PO ×2 (08:17→21:40)
[2018-06-23] MEDS: hydrOXYzine HCL 10 MG TAB NGT ×3 (08:17→21:40)
[2018-06-23] MEDS: CHOLECALCIFEROL 2,000 UNIT CAP PO (08:17)
[2018-06-23] MEDS: MAGNESIUM OXIDE 400 MG TAB PO ×2 (08:17→21:40)
[2018-06-23] MEDS: FLUOCINONIDE 0.05% CR 30GM TUBE TOP ×3 (08:18→21:45)
[2018-06-23] MEDS: FLUTICASONE 0.05% 16 GM NAS SPRAY NASAL ×2 (08:18→21:41)
[2018-06-23] MEDS: ENOXAPARIN 30 MG/0.3 ML SYG SC (08:21)
[2018-06-23] MEDS: SOD CHLORIDE 0.9% 500 ML IV (18:03)
[2018-06-23] MEDS: FLUCONAZOLE 150 MG TAB PO (18:42)
[2018-06-23] MEDS: CLOTRIMAZOLE 1% 45 GM VAG CR VAG (22:54)
[2018-06-24] MEDS: ALBUTEROL HFA 8 GM INHALER INH ×6 (01:00→20:46)
[2018-06-24] MEDS: SODIUM BICARBONATE (IV ADD) 100 MEQ in DEXTROSE 5% 1,000 ML IV ×2 (01:27→12:53)
[2018-06-24 06:30] LABS: ADD MAN DIFF? NO
[2018-06-24 06:32] LABS: ABNORMAL IP MESSAGE 1; BASOPHIL # 0.1 10^3/ul (0.0-0.1); EOSINOPHILS # 0.7 10^3/ul (0.0-0.5); HEMATOCRIT 29.4 % (37.0-47.0); HEMOGLOBIN 9.4 g/dl (12.0-16.0); LYMPHOCYTES # 0.6 10^3/ul (0.8-2.9); LYMPHOCYTES % 8.4 % (15.0-51.0); MEAN CORPUSCULAR HEMOGLOBIN 27.2 pg (29.0-33.0); MEAN CORPUSCULAR VOLUME 85.2 fl (82.0-101.0); MEAN PLATELET VOLUME 9.8 fl (7.4-10.4); MONOCYTE # 0.7 10^3/ul (0.3-0.9); MONOCYTES % 10.5 % (0.0-11.0); NEUTROPHIL # 4.7 10^3/ul (1.6-7.5); NEUTROPHILS % 69.7 % (39.0-77.0); PLATELET COUNT 408 10^3/UL (140-415); RED BLOOD COUNT 3.45 10^6/ul (4.20-5.40); RED CELL DISTRIBUTION WIDTH 14.6 % (11.5-14.5)
[2018-06-24 06:32] LABS: WHITE BLOOD COUNT 6.8 10^3/ul (4.8-10.8)
[2018-06-24 06:47] LABS: POSITIVE DIFF @See below
[2018-06-24 07:06] LABS: ANION GAP 16 (8-16); BLOOD UREA NITROGEN 51 mg/dl (7-20); CALCIUM 8.4 mg/dl (8.4-10.2); CARBON DIOXIDE 34 mmol/L (21-31); CHLORIDE 85 mmol/L (97-110); CREATININE 6.41 mg/dl (0.44-1.00); GLUCOSE 93 mg/dl (70-220); MAGNESIUM 1.3 mg/dl (1.7-2.5); POTASSIUM 4.3 mmol/L (3.5-5.1); SODIUM 131 mmol/L (135-144)
[2018-06-24] MEDS: hydrOXYzine HCL 10 MG TAB NGT ×3 (08:34→20:44)
[2018-06-24] MEDS: FAMOTIDINE 20 MG TAB PO ×2 (08:34→20:45)
[2018-06-24] MEDS: FOLIC ACID 1 MG TAB PO (08:34)
[2018-06-24] MEDS: CHOLECALCIFEROL 2,000 UNIT CAP PO (08:34)
[2018-06-24] MEDS: ENOXAPARIN 30 MG/0.3 ML SYG SC (08:36)
[2018-06-24] MEDS: MAGNESIUM OXIDE 400 MG TAB PO ×2 (08:38→20:45)
[2018-06-24] MEDS: FLUTICASONE 0.05% 16 GM NAS SPRAY NASAL ×2 (08:39→20:45)
[2018-06-24] MEDS: FLUOCINONIDE 0.05% 15 GM CR TOP ×3 (09:00→20:45)
[2018-06-24] MEDS: DEXTROSE 5%-0.45% NACL 1,000 ML IV (16:16)
[2018-06-24] MEDS: MAGNESIUM SULFATE 4 GM/100 ML 100 ML IVPB (16:16)
[2018-06-24] MEDS: SODIUM PHOSPHATE 15 MMOL in SOD CHLORIDE 0.9% 250 ML IVPB (16:16)
[2018-06-24] MEDS: CLOTRIMAZOLE 1% 45 GM VAG CR VAG (20:45)
[2018-06-25] MEDS: ALBUTEROL HFA 8 GM INHALER INH ×6 (01:00→21:00)
[2018-06-25] MEDS: DEXTROSE 5%-0.45% NACL 1,000 ML IV ×2 (06:19→17:10)
[2018-06-25 09:19] LABS: ADD MAN DIFF? NO
[2018-06-25 09:25] LABS: WHITE BLOOD COUNT 7.2 10^3/ul (4.8-10.8)
[2018-06-25 09:25] LABS: ABNORMAL IP MESSAGE 1; BASOPHIL # 0.1 10^3/ul (0.0-0.1); BASOPHILS % 0.7 % (0.0-2.0); EOSINOPHILS # 0.4 10^3/ul (0.0-0.5); EOSINOPHILS % 5.1 % (0.0-7.0); HEMATOCRIT 26.8 % (37.0-47.0); HEMOGLOBIN 8.7 g/dl (12.0-16.0); IMMATURE GRANS #M 0.02 10^3/ul; IMMATURE GRANS % (M) 0.3 %; LYMPHOCYTES # 0.5 10^3/ul (0.8-2.9); LYMPHOCYTES % 6.3 % (15.0-51.0); MEAN CORPUSCULAR HGB CONC 32.5 g/dl (32.0-37.0); MEAN CORPUSCULAR VOLUME 86.2 fl (82.0-101.0); MEAN PLATELET VOLUME 10.1 fl (7.4-10.4); MONOCYTE # 0.8 10^3/ul (0.3-0.9); MONOCYTES % 10.8 % (0.0-11.0); NEUTROPHIL # 5.5 10^3/ul (1.6-7.5); NEUTROPHILS % 76.8 % (39.0-77.0); PLATELET COUNT 361 10^3/UL (140-415); RED BLOOD COUNT 3.11 10^6/ul (4.20-5.40); RED CELL DISTRIBUTION WIDTH 14.7 % (11.5-14.5)
[2018-06-25] MEDS: CHOLECALCIFEROL 2,000 UNIT CAP PO (09:29)
[2018-06-25] MEDS: hydrOXYzine HCL 10 MG TAB NGT ×3 (09:29→21:39)
[2018-06-25] MEDS: FOLIC ACID 1 MG TAB PO (09:29)
[2018-06-25] MEDS: MAGNESIUM OXIDE 400 MG TAB PO ×2 (09:29→21:38)
[2018-06-25] MEDS: FAMOTIDINE 20 MG TAB PO ×2 (09:29→21:38)
[2018-06-25] MEDS: FLUTICASONE 0.05% 16 GM NAS SPRAY NASAL ×2 (09:30→21:38)
[2018-06-25] MEDS: FLUOCINONIDE 0.05% 15 GM CR TOP ×3 (09:31→21:39)
[2018-06-25 09:38] LABS: POSITIVE DIFF @See below
[2018-06-25] MEDS: ENOXAPARIN 30 MG/0.3 ML SYG SC (09:43)
[2018-06-25 10:00] LABS: ANION GAP 17 (8-16); BLOOD UREA NITROGEN 48 mg/dl (7-20); CARBON DIOXIDE 35 mmol/L (21-31); CHLORIDE 79 mmol/L (97-110); CREATININE 7.35 mg/dl (0.44-1.00); GLUCOSE 114 mg/dl (70-220); POTASSIUM 3.7 mmol/L (3.5-5.1); SODIUM 127 mmol/L (135-144)
[2018-06-25] MEDS ORDERED: SOD CHLORIDE 0.9% 1,000 ML IV (20:30)
[2018-06-25] MEDS: POTASSIUM PHOSPHATE 15 MM in SOD CHLORIDE 0.9% 250 ML IVPB (21:37)
[2018-06-25] MEDS: MAGNESIUM SULFATE 3 GM in DEXTROSE 5% 100 ML IVPB (21:37)
[2018-06-25] MEDS: CLOTRIMAZOLE 1% 45 GM VAG CR VAG (21:39)
[2018-06-26] MEDS: ALBUTEROL HFA 8 GM INHALER INH ×6 (01:00→21:00)
[2018-06-26] MEDS: DEXTROSE 5%-0.45% NACL 1,000 ML IV (04:47)
[2018-06-26 07:11] LABS: ADD MAN DIFF? NO
[2018-06-26 07:16] LABS: ABNORMAL IP MESSAGE 1; BASOPHILS % 0.4 % (0.0-2.0); EOSINOPHILS # 0.4 10^3/ul (0.0-0.5); HEMATOCRIT 24.6 % (37.0-47.0); HEMOGLOBIN 7.9 g/dl (12.0-16.0); IMMATURE GRANS #M 0.03 10^3/ul; IMMATURE GRANS % (M) 0.4 %; LYMPHOCYTES # 0.4 10^3/ul (0.8-2.9); LYMPHOCYTES % 5.4 % (15.0-51.0); MEAN CORPUSCULAR HEMOGLOBIN 27.2 pg (29.0-33.0); MEAN CORPUSCULAR HGB CONC 32.1 g/dl (32.0-37.0); MEAN CORPUSCULAR VOLUME 84.8 fl (82.0-101.0); MEAN PLATELET VOLUME 9.8 fl (7.4-10.4); MONOCYTE # 0.6 10^3/ul (0.3-0.9); MONOCYTES % 7.1 % (0.0-11.0); NEUTROPHIL # 6.5 10^3/ul (1.6-7.5); NEUTROPHILS % 81.7 % (39.0-77.0); PLATELET COUNT 338 10^3/UL (140-415); RED CELL DISTRIBUTION WIDTH 14.1 % (11.5-14.5)
[2018-06-26 07:32] LABS: POSITIVE DIFF @See below
[2018-06-26 07:34] LABS: ANION GAP 21 (8-16); BLOOD UREA NITROGEN 44 mg/dl (7-20); CALCIUM 7.7 mg/dl (8.4-10.2); CARBON DIOXIDE 28 mmol/L (21-31); CHLORIDE 83 mmol/L (97-110); CREATININE 7.23 mg/dl (0.44-1.00); GLUCOSE 159 mg/dl (70-220); POTASSIUM 3.8 mmol/L (3.5-5.1); SODIUM 128 mmol/L (135-144)
[2018-06-26] MEDS: MAGNESIUM OXIDE 400 MG TAB PO ×2 (08:46→21:01)
[2018-06-26] MEDS: hydrOXYzine HCL 10 MG TAB NGT ×3 (08:46→21:01)
[2018-06-26] MEDS: FOLIC ACID 1 MG TAB PO (08:46)
[2018-06-26] MEDS: FLUTICASONE 0.05% 16 GM NAS SPRAY NASAL ×2 (08:46→21:02)
[2018-06-26] MEDS: CHOLECALCIFEROL 2,000 UNIT CAP PO (08:46)
[2018-06-26] MEDS: FLUOCINONIDE 0.05% 15 GM CR TOP ×3 (08:47→21:03)
[2018-06-26] MEDS: ENOXAPARIN 30 MG/0.3 ML SYG SC (08:54)
[2018-06-26 17:37] LABS: PHOSPHORUS 7.5 mg/dl (2.5-4.9)
[2018-06-26] MEDS: SOD CHLORIDE 0.9% 250 ML IV (17:37)
[2018-06-26] MEDS: SOD CHLORIDE 0.9% 1,000 ML IV (17:37)
[2018-06-26] MEDS: FAMOTIDINE 20 MG TAB PO (21:01)
[2018-06-26] MEDS: CLOTRIMAZOLE 1% 45 GM VAG CR VAG (21:04)
[2018-06-26] MEDS: MAGNESIUM SULFATE 4 GM/100 ML 100 ML IVPB (22:09)
[2018-06-27] MEDS: ALBUTEROL HFA 8 GM INHALER INH ×6 (01:00→21:00)
[2018-06-27] MEDS: SOD CHLORIDE 0.9% 1,000 ML IV ×2 (06:00→17:12)
[2018-06-27 06:45] LABS: ADD MAN DIFF? NO
[2018-06-27 07:08] LABS: PHOSPHORUS 6.5 mg/dl (2.5-4.9)
[2018-06-27 07:10] LABS: ANION GAP 19 (8-16); BLOOD UREA NITROGEN 44 mg/dl (7-20); CALCIUM 7.9 mg/dl (8.4-10.2); CARBON DIOXIDE 26 mmol/L (21-31); CHLORIDE 91 mmol/L (97-110); CREATININE 7.47 mg/dl (0.44-1.00); GLUCOSE 121 mg/dl (70-220); SODIUM 133 mmol/L (135-144)
[2018-06-27 07:25] LABS: MAGNESIUM 7.7 mg/dl (1.7-2.5); POTASSIUM 2.9 mmol/L (3.5-5.1)
[2018-06-27] MEDS: hydrOXYzine HCL 10 MG TAB NGT ×3 (08:26→21:29)
[2018-06-27] MEDS: FOLIC ACID 1 MG TAB PO (08:26)
[2018-06-27] MEDS: CHOLECALCIFEROL 2,000 UNIT CAP PO (08:26)
[2018-06-27] MEDS: MAGNESIUM OXIDE 400 MG TAB PO ×2 (08:26→21:00)
[2018-06-27] MEDS: FLUTICASONE 0.05% 16 GM NAS SPRAY NASAL ×2 (08:27→21:28)
[2018-06-27] MEDS: FLUOCINONIDE 0.05% 15 GM CR TOP ×3 (08:28→21:29)
[2018-06-27] MEDS: ENOXAPARIN 30 MG/0.3 ML SYG SC (08:39)
[2018-06-27 09:34] LABS: ABNORMAL IP MESSAGE 1; BASOPHIL # 0.1 10^3/ul (0.0-0.1); BASOPHILS % 0.6 % (0.0-2.0); EOSINOPHILS # 0.4 10^3/ul (0.0-0.5); EOSINOPHILS % 5.4 % (0.0-7.0); HEMATOCRIT 28.3 % (37.0-47.0); HEMOGLOBIN 9.1 g/dl (12.0-16.0); IMMATURE GRANS #M 0.02 10^3/ul; IMMATURE GRANS % (M) 0.3 %; LYMPHOCYTES # 0.5 10^3/ul (0.8-2.9); MEAN CORPUSCULAR HEMOGLOBIN 28.3 pg (29.0-33.0); MEAN CORPUSCULAR HGB CONC 32.2 g/dl (32.0-37.0); MEAN CORPUSCULAR VOLUME 87.9 fl (82.0-101.0); MEAN PLATELET VOLUME 9.6 fl (7.4-10.4); MONOCYTE # 0.5 10^3/ul (0.3-0.9); MONOCYTES % 6.2 % (0.0-11.0); NEUTROPHIL # 6.4 10^3/ul (1.6-7.5); NEUTROPHILS % 81.5 % (39.0-77.0); PLATELET COUNT 425 10^3/UL (140-415); RED BLOOD COUNT 3.22 10^6/ul (4.20-5.40); RED CELL DISTRIBUTION WIDTH 14.2 % (11.5-14.5)
[2018-06-27 09:34] LABS: WHITE BLOOD COUNT 7.8 10^3/ul (4.8-10.8)
[2018-06-27 09:43] LABS: POSITIVE DIFF @See below
[2018-06-27] MEDS: POTASSIUM CHLORIDE 100 ML IVPB (11:23)
[2018-06-27] MEDS: FAMOTIDINE 20 MG TAB PO (21:29)
[2018-06-27] MEDS: CLOTRIMAZOLE 1% 45 GM VAG CR VAG (21:29)
[2018-06-28] MEDS: ACETAMINOPHEN 325 MG TAB PO (00:05)
[2018-06-28] MEDS: ALBUTEROL HFA 8 GM INHALER INH ×6 (01:00→22:22)
[2018-06-28] MEDS: SOD CHLORIDE 0.9% 1,000 ML IV ×2 (05:20→18:21)
[2018-06-28 07:12] LABS: ANION GAP 22 (8-16); BLOOD UREA NITROGEN 39 mg/dl (7-20); CALCIUM 8.3 mg/dl (8.4-10.2); CARBON DIOXIDE 18 mmol/L (21-31); CHLORIDE 101 mmol/L (97-110); CREATININE 6.62 mg/dl (0.44-1.00); GLUCOSE 145 mg/dl (70-220); POTASSIUM 3.5 mmol/L (3.5-5.1); SODIUM 137 mmol/L (135-144)
[2018-06-28] MEDS: hydrOXYzine HCL 10 MG TAB NGT ×3 (07:57→22:20)
[2018-06-28] MEDS: CHOLECALCIFEROL 2,000 UNIT CAP PO (07:57)
[2018-06-28] MEDS: FOLIC ACID 1 MG TAB PO (07:57)
[2018-06-28] MEDS: FLUOCINONIDE 0.05% 15 GM CR TOP ×3 (07:58→23:00)
[2018-06-28] MEDS: MAGNESIUM OXIDE 400 MG TAB PO ×2 (07:58→21:00)
[2018-06-28] MEDS: FLUTICASONE 0.05% 16 GM NAS SPRAY NASAL ×2 (07:58→22:21)
[2018-06-28] MEDS: ENOXAPARIN 30 MG/0.3 ML SYG SC (08:10)
[2018-06-28] MEDS: FAMOTIDINE 20 MG TAB PO (22:20)
[2018-06-28] MEDS: CLOTRIMAZOLE 1% 45 GM VAG CR VAG (22:21)
[2018-06-29] MEDS: ALBUTEROL HFA 8 GM INHALER INH ×6 (01:00→20:21)
[2018-06-29 07:47] LABS: ANION GAP 16 (8-16); BLOOD UREA NITROGEN 38 mg/dl (7-20); CALCIUM 7.8 mg/dl (8.4-10.2); CARBON DIOXIDE 18 mmol/L (21-31); CHLORIDE 107 mmol/L (97-110); GLUCOSE 84 mg/dl (70-220); POTASSIUM 4.1 mmol/L (3.5-5.1); SODIUM 137 mmol/L (135-144)
[2018-06-29] MEDS: SOD CHLORIDE 0.9% 1,000 ML IV ×2 (08:00→14:39)
[2018-06-29] MEDS: MAGNESIUM OXIDE 400 MG TAB PO ×2 (09:28→20:20)
[2018-06-29] MEDS: CHOLECALCIFEROL 2,000 UNIT CAP PO (09:29)
[2018-06-29] MEDS: FOLIC ACID 1 MG TAB PO (09:29)
[2018-06-29] MEDS: FLUOCINONIDE 0.05% 15 GM CR TOP ×3 (09:29→20:20)
[2018-06-29] MEDS: hydrOXYzine HCL 10 MG TAB NGT ×3 (09:29→20:20)
[2018-06-29] MEDS: FLUTICASONE 0.05% 16 GM NAS SPRAY NASAL ×2 (09:31→20:19)
[2018-06-29] MEDS: ENOXAPARIN 30 MG/0.3 ML SYG SC (09:45)
[2018-06-29] MEDS: FAMOTIDINE 20 MG TAB PO (20:20)
[2018-06-29] MEDS: CLOTRIMAZOLE 1% 45 GM VAG CR VAG (20:20)
[2018-06-30] MEDS: ALBUTEROL HFA 8 GM INHALER INH ×6 (01:00→21:00)
[2018-06-30] MEDS: SOD CHLORIDE 0.9% 1,000 ML IV ×2 (06:01→21:30)
[2018-06-30 07:28] LABS: ANION GAP 18 (8-16); BLOOD UREA NITROGEN 45 mg/dl (7-20); CALCIUM 9.2 mg/dl (8.4-10.2); CARBON DIOXIDE 17 mmol/L (21-31); CHLORIDE 111 mmol/L (97-110); CREATININE 3.53 mg/dl (0.44-1.00); GLUCOSE 133 mg/dl (70-220); SODIUM 142 mmol/L (135-144)
[2018-06-30] MEDS: MAGNESIUM OXIDE 400 MG TAB PO ×2 (09:24→21:49)
[2018-06-30] MEDS: FOLIC ACID 1 MG TAB PO (09:24)
[2018-06-30] MEDS: CHOLECALCIFEROL 2,000 UNIT CAP PO (09:25)
[2018-06-30] MEDS: hydrOXYzine HCL 10 MG TAB NGT ×3 (09:25→21:49)
[2018-06-30] MEDS: FLUTICASONE 0.05% 16 GM NAS SPRAY NASAL ×2 (09:26→21:50)
[2018-06-30] MEDS: ENOXAPARIN 30 MG/0.3 ML SYG SC (09:27)
[2018-06-30] MEDS: FLUOCINONIDE 0.05% 15 GM CR TOP ×3 (09:28→21:50)
[2018-06-30 14:31] LABS: MAGNESIUM 2.1 mg/dl (1.7-2.5)
[2018-06-30] MEDS: FAMOTIDINE 20 MG TAB PO (21:49)
[2018-07-01] MEDS: ALBUTEROL HFA 8 GM INHALER INH ×6 (01:00→21:00)
[2018-07-01] MEDS: SOD CHLORIDE 0.9% 1,000 ML IV ×2 (01:30→22:30)
[2018-07-01 06:30] LABS: ADD MAN DIFF? NO
[2018-07-01 06:47] LABS: BASOPHIL # 0.1 10^3/ul (0.0-0.1); BASOPHILS % 1.1 % (0.0-2.0); EOSINOPHILS # 1.4 10^3/ul (0.0-0.5); EOSINOPHILS % 18.9 % (0.0-7.0); HEMATOCRIT 28.8 % (37.0-47.0); HEMOGLOBIN 9.1 g/dl (12.0-16.0); LYMPHOCYTES # 0.6 10^3/ul (0.8-2.9); LYMPHOCYTES % 8.1 % (15.0-51.0); MEAN CORPUSCULAR HGB CONC 31.6 g/dl (32.0-37.0); MEAN CORPUSCULAR VOLUME 88.6 fl (82.0-101.0); MEAN PLATELET VOLUME 9.5 fl (7.4-10.4); MONOCYTE # 0.5 10^3/ul (0.3-0.9); MONOCYTES % 6.8 % (0.0-11.0); NEUTROPHIL # 4.9 10^3/ul (1.6-7.5); NEUTROPHILS % 64.6 % (39.0-77.0); PLATELET COUNT 448 10^3/UL (140-415); RED BLOOD COUNT 3.25 10^6/ul (4.20-5.40); RED CELL DISTRIBUTION WIDTH 13.6 % (11.5-14.5)
[2018-07-01 06:47] LABS: WHITE BLOOD COUNT 7.5 10^3/ul (4.8-10.8)
[2018-07-01 06:59] LABS: ANION GAP 12 (8-16); BLOOD UREA NITROGEN 54 mg/dl (7-20); CALCIUM 9.1 mg/dl (8.4-10.2); CARBON DIOXIDE 23 mmol/L (21-31); CHLORIDE 108 mmol/L (97-110); CREATININE 2.54 mg/dl (0.44-1.00); GLUCOSE 134 mg/dl (70-220); SODIUM 139 mmol/L (135-144)
[2018-07-01] MEDS: ENOXAPARIN 30 MG/0.3 ML SYG SC (09:00)
[2018-07-01] MEDS: MAGNESIUM OXIDE 400 MG TAB PO ×2 (10:11→20:57)
[2018-07-01] MEDS: hydrOXYzine HCL 10 MG TAB NGT ×3 (10:11→20:58)
[2018-07-01] MEDS: FOLIC ACID 1 MG TAB PO (10:11)
[2018-07-01] MEDS: CHOLECALCIFEROL 2,000 UNIT CAP PO (10:11)
[2018-07-01] MEDS: FLUOCINONIDE 0.05% 15 GM CR TOP ×3 (10:12→20:58)
[2018-07-01] MEDS: FLUTICASONE 0.05% 16 GM NAS SPRAY NASAL ×2 (10:12→20:57)
[2018-07-01] MEDS: FAMOTIDINE 20 MG TAB PO (20:58)
[2018-07-02] MEDS: ALBUTEROL HFA 8 GM INHALER INH ×6 (01:00→21:00)
[2018-07-02 08:56] LABS: ANION GAP 14 (8-16); BLOOD UREA NITROGEN 44 mg/dl (7-20); CARBON DIOXIDE 22 mmol/L (21-31); CHLORIDE 110 mmol/L (97-110); CREATININE 1.88 mg/dl (0.44-1.00); GLUCOSE 86 mg/dl (70-220); POTASSIUM 3.6 mmol/L (3.5-5.1); SODIUM 142 mmol/L (135-144)
[2018-07-02] MEDS: CHOLECALCIFEROL 2,000 UNIT CAP PO (10:15)
[2018-07-02] MEDS: FOLIC ACID 1 MG TAB PO (10:15)
[2018-07-02] MEDS: hydrOXYzine HCL 10 MG TAB NGT ×3 (10:15→22:02)
[2018-07-02] MEDS: MAGNESIUM OXIDE 400 MG TAB PO ×2 (10:15→22:02)
[2018-07-02] MEDS: FLUOCINONIDE 0.05% 15 GM CR TOP ×3 (10:16→22:04)
[2018-07-02] MEDS: FLUTICASONE 0.05% 16 GM NAS SPRAY NASAL ×2 (10:16→22:03)
[2018-07-02] MEDS: ENOXAPARIN 30 MG/0.3 ML SYG SC (10:21)
[2018-07-02] MEDS: SOD CHLORIDE 0.9% 250 ML IV (12:38)
[2018-07-02] MEDS: SOD CHLORIDE 0.9% 1,000 ML IV ×2 (12:38→23:30)
[2018-07-02] MEDS: FAMOTIDINE 20 MG TAB PO (22:03)
[2018-07-03] MEDS: ALBUTEROL HFA 8 GM INHALER INH ×6 (01:00→20:03)
[2018-07-03] MEDS: hydrOXYzine HCL 10 MG TAB NGT ×3 (08:29→21:39)
[2018-07-03] MEDS: CHOLECALCIFEROL 2,000 UNIT CAP PO (08:29)
[2018-07-03] MEDS: FOLIC ACID 1 MG TAB PO (08:29)
[2018-07-03] MEDS: FLUTICASONE 0.05% 16 GM NAS SPRAY NASAL ×2 (08:29→21:38)
[2018-07-03] MEDS: MAGNESIUM OXIDE 400 MG TAB PO ×2 (08:29→21:38)
[2018-07-03] MEDS: FLUOCINONIDE 0.05% 15 GM CR TOP ×3 (08:30→21:40)
[2018-07-03 08:33] LABS: ADD MAN DIFF? NO
[2018-07-03] MEDS: ENOXAPARIN 30 MG/0.3 ML SYG SC (08:34)
[2018-07-03 08:39] LABS: BASOPHIL # 0.1 10^3/ul (0.0-0.1); BASOPHILS % 1.2 % (0.0-2.0); EOSINOPHILS # 0.9 10^3/ul (0.0-0.5); EOSINOPHILS % 15.1 % (0.0-7.0); HEMATOCRIT 29.1 % (37.0-47.0); HEMOGLOBIN 9.1 g/dl (12.0-16.0); LYMPHOCYTES # 0.7 10^3/ul (0.8-2.9); LYMPHOCYTES % 11.4 % (15.0-51.0); MEAN CORPUSCULAR HEMOGLOBIN 27.8 pg (29.0-33.0); MEAN CORPUSCULAR HGB CONC 31.3 g/dl (32.0-37.0); MEAN PLATELET VOLUME 9.8 fl (7.4-10.4); MONOCYTE # 0.5 10^3/ul (0.3-0.9); MONOCYTES % 8.3 % (0.0-11.0); NEUTROPHIL # 3.6 10^3/ul (1.6-7.5); NEUTROPHILS % 63.5 % (39.0-77.0); PLATELET COUNT 391 10^3/UL (140-415); RED BLOOD COUNT 3.27 10^6/ul (4.20-5.40); RED CELL DISTRIBUTION WIDTH 13.9 % (11.5-14.5)
[2018-07-03 08:39] LABS: WHITE BLOOD COUNT 5.7 10^3/ul (4.8-10.8)
[2018-07-03 09:12] LABS: ANION GAP 14 (8-16); BLOOD UREA NITROGEN 33 mg/dl (7-20); CALCIUM 8.7 mg/dl (8.4-10.2); CARBON DIOXIDE 23 mmol/L (21-31); CHLORIDE 110 mmol/L (97-110); CREATININE 1.47 mg/dl (0.44-1.00); GLUCOSE 112 mg/dl (70-220); POTASSIUM 3.5 mmol/L (3.5-5.1); SODIUM 143 mmol/L (135-144)
[2018-07-03] MEDS: SOD CHLORIDE 0.9% 1,000 ML IV (11:58)
[2018-07-03] MEDS: FAMOTIDINE 20 MG TAB PO (21:39)
[2018-07-04] MEDS: SOD CHLORIDE 0.9% 1,000 ML IV ×3 (00:30→13:00)
[2018-07-04] MEDS: ALBUTEROL HFA 8 GM INHALER INH ×6 (01:00→21:22)
[2018-07-04] MEDS: MAGNESIUM OXIDE 400 MG TAB PO ×2 (09:15→21:21)
[2018-07-04] MEDS: CHOLECALCIFEROL 2,000 UNIT CAP PO (09:16)
[2018-07-04] MEDS: FOLIC ACID 1 MG TAB PO (09:16)
[2018-07-04] MEDS: hydrOXYzine HCL 10 MG TAB NGT ×3 (09:16→21:21)
[2018-07-04] MEDS: FLUOCINONIDE 0.05% 15 GM CR TOP ×3 (09:18→21:21)
[2018-07-04] MEDS: ENOXAPARIN 30 MG/0.3 ML SYG SC (09:18)
[2018-07-04] MEDS: FLUTICASONE 0.05% 16 GM NAS SPRAY NASAL ×2 (09:18→21:21)
[2018-07-04 09:40] LABS: ADD MAN DIFF? NO
[2018-07-04 09:44] LABS: BASOPHIL # 0.1 10^3/ul (0.0-0.1); BASOPHILS % 1.1 % (0.0-2.0); EOSINOPHILS # 0.9 10^3/ul (0.0-0.5); EOSINOPHILS % 12.2 % (0.0-7.0); HEMATOCRIT 29.8 % (37.0-47.0); HEMOGLOBIN 9.2 g/dl (12.0-16.0); LYMPHOCYTES # 0.7 10^3/ul (0.8-2.9); LYMPHOCYTES % 9.2 % (15.0-51.0); MEAN CORPUSCULAR HEMOGLOBIN 27.1 pg (29.0-33.0); MEAN CORPUSCULAR HGB CONC 30.9 g/dl (32.0-37.0); MEAN CORPUSCULAR VOLUME 87.9 fl (82.0-101.0); MEAN PLATELET VOLUME 9.7 fl (7.4-10.4); MONOCYTE # 0.5 10^3/ul (0.3-0.9); MONOCYTES % 6.5 % (0.0-11.0); NEUTROPHIL # 5.2 10^3/ul (1.6-7.5); NEUTROPHILS % 69.9 % (39.0-77.0); PLATELET COUNT 415 10^3/UL (140-415); RED BLOOD COUNT 3.39 10^6/ul (4.20-5.40); RED CELL DISTRIBUTION WIDTH 13.9 % (11.5-14.5)
[2018-07-04 09:44] LABS: WHITE BLOOD COUNT 7.4 10^3/ul (4.8-10.8)
[2018-07-04 10:18] LABS: ANION GAP 14 (8-16); BLOOD UREA NITROGEN 26 mg/dl (7-20); CALCIUM 8.8 mg/dl (8.4-10.2); CARBON DIOXIDE 22 mmol/L (21-31); CHLORIDE 109 mmol/L (97-110); CREATININE 1.32 mg/dl (0.44-1.00); GLUCOSE 93 mg/dl (70-220); POTASSIUM 3.2 mmol/L (3.5-5.1); SODIUM 142 mmol/L (135-144)
[2018-07-04] MEDS: POTASSIUM CHLORIDE (SR) 20 MEQ TAB PO (12:39)
[2018-07-04] MEDS: FAMOTIDINE 20 MG TAB PO (21:21)
[2018-07-05] MEDS: ALBUTEROL HFA 8 GM INHALER INH ×6 (01:00→20:37)
[2018-07-05] MEDS: SOD CHLORIDE 0.9% 1,000 ML IV ×3 (06:30→17:09)
[2018-07-05] MEDS: FLUTICASONE 0.05% 16 GM NAS SPRAY NASAL ×2 (07:46→20:35)
[2018-07-05] MEDS: hydrOXYzine HCL 10 MG TAB NGT ×3 (09:32→20:36)
[2018-07-05] MEDS: FOLIC ACID 1 MG TAB PO (09:32)
[2018-07-05] MEDS: MAGNESIUM OXIDE 400 MG TAB PO ×2 (09:32→20:36)
[2018-07-05] MEDS: FLUOCINONIDE 0.05% 15 GM CR TOP ×3 (09:32→20:36)
[2018-07-05] MEDS: CHOLECALCIFEROL 2,000 UNIT CAP PO (09:32)
[2018-07-05 09:44] LABS: ADD MAN DIFF? NO
[2018-07-05 09:49] LABS: BASOPHIL # 0.1 10^3/ul (0.0-0.1); EOSINOPHILS # 0.8 10^3/ul (0.0-0.5); EOSINOPHILS % 12.6 % (0.0-7.0); HEMATOCRIT 29.2 % (37.0-47.0); HEMOGLOBIN 9.1 g/dl (12.0-16.0); LYMPHOCYTES # 0.6 10^3/ul (0.8-2.9); LYMPHOCYTES % 9.7 % (15.0-51.0); MEAN CORPUSCULAR HEMOGLOBIN 27.4 pg (29.0-33.0); MEAN CORPUSCULAR HGB CONC 31.2 g/dl (32.0-37.0); MEAN PLATELET VOLUME 10.3 fl (7.4-10.4); MONOCYTE # 0.5 10^3/ul (0.3-0.9); MONOCYTES % 8.1 % (0.0-11.0); NEUTROPHIL # 4.2 10^3/ul (1.6-7.5); NEUTROPHILS % 67.6 % (39.0-77.0); PLATELET COUNT 409 10^3/UL (140-415); RED BLOOD COUNT 3.32 10^6/ul (4.20-5.40); RED CELL DISTRIBUTION WIDTH 13.8 % (11.5-14.5)
[2018-07-05 09:49] LABS: WHITE BLOOD COUNT 6.2 10^3/ul (4.8-10.8)
[2018-07-05] MEDS: ENOXAPARIN 30 MG/0.3 ML SYG SC (09:54)
[2018-07-05 10:07] LABS: ALANINE AMINOTRANSFERASE 25 IU/L (13-69); ALBUMIN 3.7 g/dl (3.3-4.9); ALBUMIN/GLOBULIN RATIO 0.92; ALKALINE PHOSPHATASE 69 IU/L (42-121); ANION GAP 15 (8-16); ASPARTATE AMINO TRANSFERASE 31 IU/L (15-46); BLOOD UREA NITROGEN 27 mg/dl (7-20); CALCIUM 8.9 mg/dl (8.4-10.2); CARBON DIOXIDE 22 mmol/L (21-31); CHLORIDE 107 mmol/L (97-110); CREATININE 1.19 mg/dl (0.44-1.00); GLUCOSE 102 mg/dl (70-220); POTASSIUM 3.8 mmol/L (3.5-5.1); SODIUM 140 mmol/L (135-144); TOTAL PROTEIN 7.7 g/dl (6.1-8.1)
[2018-07-05 10:08] LABS: PHOSPHORUS 2.9 mg/dl (2.5-4.9)
[2018-07-05 10:14] LABS: MAGNESIUM 0.9 mg/dl (1.7-2.5)
[2018-07-05] MEDS: MAGNESIUM SULFATE 3 GM in DEXTROSE 5% 100 ML IVPB (12:44)
[2018-07-05] MEDS: FAMOTIDINE 20 MG TAB PO (20:36)
[2018-07-06] MEDS: ALBUTEROL HFA 8 GM INHALER INH ×6 (01:00→20:08)
[2018-07-06] MEDS: SOD CHLORIDE 0.9% 1,000 ML IV ×3 (05:41→20:09)
[2018-07-06] MEDS: FLUTICASONE 0.05% 16 GM NAS SPRAY NASAL ×2 (08:47→20:08)
[2018-07-06] MEDS: CHOLECALCIFEROL 2,000 UNIT CAP PO (08:48)
[2018-07-06] MEDS: hydrOXYzine HCL 10 MG TAB NGT ×3 (08:48→20:08)
[2018-07-06] MEDS: MAGNESIUM OXIDE 400 MG TAB PO ×2 (08:48→20:08)
[2018-07-06] MEDS: FOLIC ACID 1 MG TAB PO (08:48)
[2018-07-06] MEDS: ENOXAPARIN 30 MG/0.3 ML SYG SC (08:51)
[2018-07-06] MEDS: FLUOCINONIDE 0.05% 15 GM CR TOP ×3 (08:52→20:09)
[2018-07-06 09:25] LABS: ANION GAP 14 (8-16); BLOOD UREA NITROGEN 25 mg/dl (7-20); CALCIUM 8.3 mg/dl (8.4-10.2); CARBON DIOXIDE 19 mmol/L (21-31); CHLORIDE 113 mmol/L (97-110); CREATININE 1.24 mg/dl (0.44-1.00); GLUCOSE 99 mg/dl (70-220); MAGNESIUM 1.9 mg/dl (1.7-2.5); POTASSIUM 3.5 mmol/L (3.5-5.1); SODIUM 142 mmol/L (135-144)
[2018-07-06] MEDS: FAMOTIDINE 20 MG TAB PO (20:08)
[2018-07-07] MEDS: ALBUTEROL HFA 8 GM INHALER INH ×6 (01:00→21:00)
[2018-07-07 06:12] LABS: ADD MAN DIFF? NO
[2018-07-07 06:22] LABS: WHITE BLOOD COUNT 6.3 10^3/ul (4.8-10.8)
[2018-07-07 06:22] LABS: BASOPHIL # 0.1 10^3/ul (0.0-0.1); EOSINOPHILS # 0.6 10^3/ul (0.0-0.5); EOSINOPHILS % 10.1 % (0.0-7.0); HEMATOCRIT 29.3 % (37.0-47.0); LYMPHOCYTES # 0.7 10^3/ul (0.8-2.9); LYMPHOCYTES % 11.7 % (15.0-51.0); MEAN CORPUSCULAR HEMOGLOBIN 26.9 pg (29.0-33.0); MEAN CORPUSCULAR HGB CONC 30.7 g/dl (32.0-37.0); MEAN CORPUSCULAR VOLUME 87.7 fl (82.0-101.0); MEAN PLATELET VOLUME 9.8 fl (7.4-10.4); MONOCYTE # 0.5 10^3/ul (0.3-0.9); MONOCYTES % 7.9 % (0.0-11.0); NEUTROPHIL # 4.3 10^3/ul (1.6-7.5); NEUTROPHILS % 68.2 % (39.0-77.0); PLATELET COUNT 421 10^3/UL (140-415); RED BLOOD COUNT 3.34 10^6/ul (4.20-5.40); RED CELL DISTRIBUTION WIDTH 14.1 % (11.5-14.5)
[2018-07-07 06:45] LABS: MAGNESIUM 1.2 mg/dl (1.7-2.5)
[2018-07-07 06:46] LABS: ANION GAP 12 (8-16); BLOOD UREA NITROGEN 25 mg/dl (7-20); CALCIUM 9.2 mg/dl (8.4-10.2); CARBON DIOXIDE 25 mmol/L (21-31); CHLORIDE 108 mmol/L (97-110); CREATININE 1.15 mg/dl (0.44-1.00); GLUCOSE 98 mg/dl (70-220); POTASSIUM 4.2 mmol/L (3.5-5.1); SODIUM 141 mmol/L (135-144)
[2018-07-07] MEDS: CHOLECALCIFEROL 2,000 UNIT CAP PO (08:46)
[2018-07-07] MEDS: MAGNESIUM OXIDE 400 MG TAB PO ×2 (08:46→22:12)
[2018-07-07] MEDS: FOLIC ACID 1 MG TAB PO (08:46)
[2018-07-07] MEDS: FLUTICASONE 0.05% 16 GM NAS SPRAY NASAL ×2 (08:46→22:12)
[2018-07-07] MEDS: hydrOXYzine HCL 10 MG TAB NGT ×3 (08:47→22:12)
[2018-07-07] MEDS: FLUOCINONIDE 0.05% 15 GM CR TOP ×3 (08:48→22:12)
[2018-07-07] MEDS: ENOXAPARIN 30 MG/0.3 ML SYG SC (08:53)
[2018-07-07] MEDS: MAGNESIUM SULFATE 2 GM/50 ML 50 ML IVPB (11:48)
[2018-07-07] MEDS: FAMOTIDINE 20 MG TAB PO (22:12)
[2018-07-07] MEDS: ALTEPLASE (CATHFLO) 2 MG INJ CATHETER (23:41)
[2018-07-08] MEDS: ALBUTEROL HFA 8 GM INHALER INH ×6 (01:00→21:00)
[2018-07-08 05:51] LABS: ADD MAN DIFF? NO; BASOPHIL # 0.1 10^3/ul (0.0-0.1); BASOPHILS % 0.5 % (0.0-2.0); EOSINOPHILS # 0.8 10^3/ul (0.0-0.5); EOSINOPHILS % 4.9 % (0.0-7.0); HEMATOCRIT 33.4 % (37.0-47.0); HEMOGLOBIN 10.7 g/dl (12.0-16.0); LYMPHOCYTES # 0.7 10^3/ul (0.8-2.9); LYMPHOCYTES % 4.5 % (15.0-51.0); MEAN CORPUSCULAR HEMOGLOBIN 27.9 pg (29.0-33.0); MEAN CORPUSCULAR VOLUME 87.2 fl (82.0-101.0); MEAN PLATELET VOLUME 9.8 fl (7.4-10.4); MONOCYTE # 0.9 10^3/ul (0.3-0.9); MONOCYTES % 5.7 % (0.0-11.0); NEUTROPHILS % 83.4 % (39.0-77.0); PLATELET COUNT 576 10^3/UL (140-415); RED BLOOD COUNT 3.83 10^6/ul (4.20-5.40)
[2018-07-08 05:51] LABS: WHITE BLOOD COUNT 15.5 10^3/ul (4.8-10.8)
[2018-07-08 06:15] LABS: ANION GAP 18 (8-16); BLOOD UREA NITROGEN 34 mg/dl (7-20); CALCIUM 10.2 mg/dl (8.4-10.2); CARBON DIOXIDE 21 mmol/L (21-31); CHLORIDE 102 mmol/L (97-110); CREATININE 1.33 mg/dl (0.44-1.00); GLUCOSE 92 mg/dl (70-220); SODIUM 137 mmol/L (135-144)
[2018-07-08] MEDS: ENOXAPARIN 30 MG/0.3 ML SYG SC (08:32)
[2018-07-08] MEDS: CHOLECALCIFEROL 2,000 UNIT CAP PO (08:33)
[2018-07-08] MEDS: FLUOCINONIDE 0.05% 15 GM CR TOP ×2 (08:33→12:37)
[2018-07-08] MEDS: FLUTICASONE 0.05% 16 GM NAS SPRAY NASAL (08:33)
[2018-07-08] MEDS: MAGNESIUM OXIDE 400 MG TAB PO (08:33)
[2018-07-08] MEDS: FOLIC ACID 1 MG TAB PO (08:33)
[2018-07-08] MEDS: hydrOXYzine HCL 10 MG TAB NGT ×2 (08:34→12:33)
[2018-07-09] MEDS: ACETAMINOPHEN 325 MG TAB PO (00:06)
[2018-07-09] MEDS: hydrOXYzine HCL 10 MG TAB NGT ×4 (00:06→20:45)
[2018-07-09] MEDS: FAMOTIDINE 20 MG TAB PO ×2 (00:06→20:46)
[2018-07-09] MEDS: MAGNESIUM OXIDE 400 MG TAB PO ×3 (00:06→20:46)
[2018-07-09] MEDS: FLUTICASONE 0.05% 16 GM NAS SPRAY NASAL ×3 (00:07→20:46)
[2018-07-09] MEDS: FLUOCINONIDE 0.05% 15 GM CR TOP ×4 (00:07→20:47)
[2018-07-09] MEDS: ALBUTEROL HFA 8 GM INHALER INH ×6 (00:07→20:55)
[2018-07-09] MEDS: ONDANSETRON 4 MG INJ IV (04:58)
[2018-07-09 05:07] LABS: ADD MAN DIFF? NO
[2018-07-09 05:09] LABS: ABNORMAL IP MESSAGE 1; BASOPHIL # 0.1 10^3/ul (0.0-0.1); BASOPHILS % 0.3 % (0.0-2.0); EOSINOPHILS # 0.2 10^3/ul (0.0-0.5); EOSINOPHILS % 0.8 % (0.0-7.0); HEMATOCRIT 38.7 % (37.0-47.0); HEMOGLOBIN 12.5 g/dl (12.0-16.0); LYMPHOCYTES # 0.8 10^3/ul (0.8-2.9); LYMPHOCYTES % 3.1 % (15.0-51.0); MEAN CORPUSCULAR HEMOGLOBIN 27.7 pg (29.0-33.0); MEAN CORPUSCULAR HGB CONC 32.3 g/dl (32.0-37.0); MEAN CORPUSCULAR VOLUME 85.6 fl (82.0-101.0); MEAN PLATELET VOLUME 9.9 fl (7.4-10.4); MONOCYTE # 0.8 10^3/ul (0.3-0.9); MONOCYTES % 3.2 % (0.0-11.0); NEUTROPHIL # 23.8 10^3/ul (1.6-7.5); NEUTROPHILS % 91.6 % (39.0-77.0); PLATELET COUNT 668 10^3/UL (140-415); RED BLOOD COUNT 4.52 10^6/ul (4.20-5.40); RED CELL DISTRIBUTION WIDTH 14.2 % (11.5-14.5)
[2018-07-09 05:12] LABS: POSITIVE DIFF @See below
[2018-07-09] MEDS: AL HYDROX/MG HYDROX/SIMETH 30 ML CUP PO (05:16)
[2018-07-09] MEDS: DICLOFENAC SODIUM 1% GEL 100 GM TUBE TP ×4 (05:21→20:47)
[2018-07-09 05:33] LABS: ANION GAP 27 (8-16); BLOOD UREA NITROGEN 53 mg/dl (7-20); CALCIUM 11.1 mg/dl (8.4-10.2); CARBON DIOXIDE 17 mmol/L (21-31); CHLORIDE 95 mmol/L (97-110); CREATININE 3.26 mg/dl (0.44-1.00); GLUCOSE 128 mg/dl (70-220); POTASSIUM 5.3 mmol/L (3.5-5.1); SODIUM 134 mmol/L (135-144)
[2018-07-09] MEDS: ENOXAPARIN 30 MG/0.3 ML SYG SC (09:14)
[2018-07-09] MEDS: CHOLECALCIFEROL 2,000 UNIT CAP PO (09:19)
[2018-07-09] MEDS: FOLIC ACID 1 MG TAB PO (09:19)
[2018-07-09] MEDS: LINEZOLID 600 MG/D5W (PMX) 300 ML IVPB ×2 (14:33→20:47)
[2018-07-09] MEDS: SOD CHLORIDE 0.9% 1,000 ML IV (15:46)
[2018-07-09] MEDS: NA POLYST SULFON 15 GM/60 ML BTL PO (15:46)
[2018-07-09 17:00] LABS: ADD UMIC YES; UR ASCORBIC ACID NEGATIVE (NEGATIVE); UR BACTERIA FEW /HPF (NONE SEEN); UR BILIRUBIN (Dip) NEGATIVE (NEGATIVE); UR BLOOD (Dip) 1+ mg/dL (NEGATIVE); UR CLARITY CLOUDY (CLEAR); UR COLOR AMBER (YELLOW); UR GLUCOSE (Dip) NEGATIVE (NEGATIVE); UR KETONES (Dip) TRACE mg/dL (NEGATIVE); UR LEUKOCYTE ESTERASE (Dip) 1+ Leu/ul (NEGATIVE); UR MUCUS FEW /HPF (NONE SEEN); UR NITRITE (Dip) NEGATIVE (NEGATIVE); UR RBC 4 /HPF (0-5); UR SQUAMOUS EPITHELIAL CELL FEW /HPF (FEW); UR TOTAL PROTEIN (Dip) 2+ mg/dl (NEGATIVE); UR UROBILINOGEN (Dip) 1+ mg/dL (NEGATIVE); UR WBC 26 /HPF (0-5)
[2018-07-09] MEDS: MEROPENEM 1 GM/50ML(PMX) 50 ML IVPB ×2 (17:19→23:57)
[2018-07-09 17:46] LABS: LACTIC ACID 3.8 mmol/L (0.5-2.0)
[2018-07-10] MEDS: ALBUTEROL HFA 8 GM INHALER INH ×6 (01:00→21:00)
[2018-07-10] MEDS: AL HYDROX/MG HYDROX/SIMETH 30 ML CUP PO (02:51)
[2018-07-10] MEDS: SOD CHLORIDE 0.9% 1,000 ML IV ×3 (03:19→16:56)
[2018-07-10 05:48] LABS: ADD MAN DIFF? NO
[2018-07-10 05:50] LABS: BASOPHIL # 0.1 10^3/ul (0.0-0.1); BASOPHILS % 0.4 % (0.0-2.0); EOSINOPHILS # 0.4 10^3/ul (0.0-0.5); EOSINOPHILS % 2.6 % (0.0-7.0); HEMATOCRIT 29.1 % (37.0-47.0); HEMOGLOBIN 9.8 g/dl (12.0-16.0); LYMPHOCYTES # 0.7 10^3/ul (0.8-2.9); LYMPHOCYTES % 4.8 % (15.0-51.0); MEAN CORPUSCULAR HEMOGLOBIN 27.8 pg (29.0-33.0); MEAN CORPUSCULAR HGB CONC 33.7 g/dl (32.0-37.0); MEAN CORPUSCULAR VOLUME 82.7 fl (82.0-101.0); MEAN PLATELET VOLUME 9.8 fl (7.4-10.4); MONOCYTE # 0.9 10^3/ul (0.3-0.9); MONOCYTES % 6.8 % (0.0-11.0); NEUTROPHIL # 11.4 10^3/ul (1.6-7.5); NEUTROPHILS % 84.7 % (39.0-77.0); PLATELET COUNT 464 10^3/UL (140-415); RED BLOOD COUNT 3.52 10^6/ul (4.20-5.40); RED CELL DISTRIBUTION WIDTH 14.1 % (11.5-14.5)
[2018-07-10 05:50] LABS: WHITE BLOOD COUNT 13.4 10^3/ul (4.8-10.8)
[2018-07-10 06:16] LABS: ANION GAP 20 (8-16); BLOOD UREA NITROGEN 65 mg/dl (7-20); CALCIUM 8.6 mg/dl (8.4-10.2); CARBON DIOXIDE 23 mmol/L (21-31); CHLORIDE 93 mmol/L (97-110); CREATININE 3.15 mg/dl (0.44-1.00); GLUCOSE 112 mg/dl (70-220); POTASSIUM 3.8 mmol/L (3.5-5.1); SODIUM 132 mmol/L (135-144)
[2018-07-10] MEDS: MEROPENEM 1 GM/50ML(PMX) 50 ML IVPB ×2 (09:16→21:41)
[2018-07-10] MEDS: FLUTICASONE 0.05% 16 GM NAS SPRAY NASAL ×2 (09:18→21:42)
[2018-07-10] MEDS: FOLIC ACID 1 MG TAB PO (09:19)
[2018-07-10] MEDS: DICLOFENAC SODIUM 1% GEL 100 GM TUBE TP ×5 (09:19→23:19)
[2018-07-10] MEDS: CHOLECALCIFEROL 2,000 UNIT CAP PO (09:19)
[2018-07-10] MEDS: MAGNESIUM OXIDE 400 MG TAB PO ×2 (09:19→21:42)
[2018-07-10] MEDS: FLUOCINONIDE 0.05% 15 GM CR TOP ×4 (09:19→21:42)
[2018-07-10] MEDS: hydrOXYzine HCL 10 MG TAB NGT ×3 (09:19→21:42)
[2018-07-10] MEDS: ENOXAPARIN 30 MG/0.3 ML SYG SC (09:22)
[2018-07-10] MEDS: LINEZOLID 600 MG/D5W (PMX) 300 ML IVPB ×2 (10:08→22:49)
[2018-07-10 13:36] LABS: LACTIC ACID 1.8 mmol/L (0.5-2.0)
[2018-07-10] MEDS: FAMOTIDINE 20 MG TAB PO (21:42)
[2018-07-11] MEDS: ALBUTEROL HFA 8 GM INHALER INH ×6 (01:00→21:00)
[2018-07-11] MEDS: SOD CHLORIDE 0.9% 1,000 ML IV ×3 (05:05→17:48)
[2018-07-11 06:12] LABS: ADD MAN DIFF? NO
[2018-07-11 06:17] LABS: WHITE BLOOD COUNT 4.3 10^3/ul (4.8-10.8)
[2018-07-11 06:17] LABS: ABNORMAL IP MESSAGE 1; BASOPHILS % 0.9 % (0.0-2.0); EOSINOPHILS # 0.3 10^3/ul (0.0-0.5); EOSINOPHILS % 7.8 % (0.0-7.0); HEMATOCRIT 26.2 % (37.0-47.0); HEMOGLOBIN 8.7 g/dl (12.0-16.0); LYMPHOCYTES # 0.4 10^3/ul (0.8-2.9); LYMPHOCYTES % 9.2 % (15.0-51.0); MEAN CORPUSCULAR HEMOGLOBIN 27.9 pg (29.0-33.0); MEAN CORPUSCULAR HGB CONC 33.2 g/dl (32.0-37.0); MEAN PLATELET VOLUME 9.9 fl (7.4-10.4); MONOCYTE # 0.7 10^3/ul (0.3-0.9); MONOCYTES % 15.2 % (0.0-11.0); NEUTROPHIL # 2.9 10^3/ul (1.6-7.5); NEUTROPHILS % 66.2 % (39.0-77.0); PLATELET COUNT 420 10^3/UL (140-415); RED BLOOD COUNT 3.12 10^6/ul (4.20-5.40); RED CELL DISTRIBUTION WIDTH 14.4 % (11.5-14.5)
[2018-07-11 06:29] LABS: POSITIVE DIFF @See below
[2018-07-11 06:52] LABS: LACTIC ACID 1.4 mmol/L (0.5-2.0)
[2018-07-11 06:58] LABS: ANION GAP 13 (8-16); BLOOD UREA NITROGEN 42 mg/dl (7-20); CALCIUM 8.4 mg/dl (8.4-10.2); CARBON DIOXIDE 26 mmol/L (21-31); CHLORIDE 99 mmol/L (97-110); CREATININE 1.09 mg/dl (0.44-1.00); GLUCOSE 86 mg/dl (70-220); POTASSIUM 3.2 mmol/L (3.5-5.1); SODIUM 135 mmol/L (135-144)
[2018-07-11] MEDS: DICLOFENAC SODIUM 1% GEL 100 GM TUBE TP ×4 (09:11→21:55)
[2018-07-11] MEDS: FLUOCINONIDE 0.05% 15 GM CR TOP ×3 (09:11→21:56)
[2018-07-11] MEDS: MAGNESIUM OXIDE 400 MG TAB PO ×2 (09:12→21:43)
[2018-07-11] MEDS: hydrOXYzine HCL 10 MG TAB NGT ×3 (09:12→21:43)
[2018-07-11] MEDS: FLUTICASONE 0.05% 16 GM NAS SPRAY NASAL ×2 (09:12→21:40)
[2018-07-11] MEDS: CHOLECALCIFEROL 2,000 UNIT CAP PO (09:12)
[2018-07-11] MEDS: FOLIC ACID 1 MG TAB PO (09:12)
[2018-07-11] MEDS: LINEZOLID 600 MG/D5W (PMX) 300 ML IVPB ×2 (09:13→22:38)
[2018-07-11] MEDS: ENOXAPARIN 30 MG/0.3 ML SYG SC (09:13)
[2018-07-11 09:41] LABS: IRON 63 ug/dl (35-150)
[2018-07-11 09:51] LABS: % IRON SATURATION 15 % SAT (22-52); TOTAL IRON BINDING CAPACITY 416 ug/dl (241-421)
[2018-07-11 10:19] LABS: FERRITIN 29.7 ng/ml (6.2-137.0)
[2018-07-11] MEDS: MEROPENEM 1 GM/50ML(PMX) 50 ML IVPB ×2 (10:47→21:42)
[2018-07-11 11:03] LABS: FOLATE > 20.0 ng/ml (2.8-20.0)
[2018-07-11] MEDS: POTASSIUM CHLORIDE (SR) 20 MEQ TAB PO (11:22)
[2018-07-11] MEDS: FAMOTIDINE 20 MG TAB PO (21:43)
[2018-07-12] MEDS: ALBUTEROL HFA 8 GM INHALER INH ×6 (01:00→21:01)
[2018-07-12] MEDS ORDERED: VITAMIN A & D 5 GM OINT PACKET TOP (02:17)
[2018-07-12] MEDS: SOD CHLORIDE 0.9% 1,000 ML IV ×4 (03:30→18:03)
[2018-07-12 06:31] LABS: ADD MAN DIFF? NO
[2018-07-12 06:35] LABS: BASOPHILS % 1.5 % (0.0-2.0); EOSINOPHILS # 0.3 10^3/ul (0.0-0.5); HEMATOCRIT 24.7 % (37.0-47.0); HEMOGLOBIN 7.9 g/dl (12.0-16.0); LYMPHOCYTES # 0.6 10^3/ul (0.8-2.9); LYMPHOCYTES % 24.1 % (15.0-51.0); MEAN CORPUSCULAR HEMOGLOBIN 27.1 pg (29.0-33.0); MEAN CORPUSCULAR VOLUME 84.9 fl (82.0-101.0); MONOCYTE # 0.5 10^3/ul (0.3-0.9); MONOCYTES % 20.7 % (0.0-11.0); NEUTROPHILS % 39.9 % (39.0-77.0); PLATELET COUNT 366 10^3/UL (140-415); RED BLOOD COUNT 2.91 10^6/ul (4.20-5.40); RED CELL DISTRIBUTION WIDTH 14.7 % (11.5-14.5)
[2018-07-12 06:35] LABS: WHITE BLOOD COUNT 2.6 10^3/ul (4.8-10.8)
[2018-07-12 07:19] LABS: ANION GAP 10 (8-16); BLOOD UREA NITROGEN 24 mg/dl (7-20); CALCIUM 7.9 mg/dl (8.4-10.2); CARBON DIOXIDE 31 mmol/L (21-31); CHLORIDE 102 mmol/L (97-110); CREATININE 0.91 mg/dl (0.44-1.00); GLUCOSE 77 mg/dl (70-220); MAGNESIUM 1.3 mg/dl (1.7-2.5); POTASSIUM 3.2 mmol/L (3.5-5.1); SODIUM 140 mmol/L (135-144)
[2018-07-12] MEDS: LINEZOLID 600 MG/D5W (PMX) 300 ML IVPB ×2 (09:13→22:05)
[2018-07-12] MEDS: MAGNESIUM OXIDE 400 MG TAB PO ×2 (09:14→21:01)
[2018-07-12] MEDS: FLUTICASONE 0.05% 16 GM NAS SPRAY NASAL ×2 (09:14→21:01)
[2018-07-12] MEDS: DICLOFENAC SODIUM 1% GEL 100 GM TUBE TP ×4 (09:14→21:01)
[2018-07-12] MEDS: FOLIC ACID 1 MG TAB PO (09:14)
[2018-07-12] MEDS: hydrOXYzine HCL 10 MG TAB NGT ×3 (09:14→21:01)
[2018-07-12] MEDS: CHOLECALCIFEROL 2,000 UNIT CAP PO (09:15)
[2018-07-12] MEDS: ENOXAPARIN 30 MG/0.3 ML SYG SC (09:15)
[2018-07-12] MEDS: FLUOCINONIDE 0.05% 15 GM CR TOP ×3 (09:15→21:12)
[2018-07-12] MEDS: MEROPENEM 1 GM/50ML(PMX) 50 ML IVPB ×2 (11:20→21:02)
[2018-07-12] MEDS: POTASSIUM CHLORIDE (SR) 20 MEQ TAB PO (11:20)
[2018-07-12] MEDS: SOD FERRIC GLUC COMPLX 125 MG in SOD CHLORIDE 0.9% 100 ML IVPB (16:33)
[2018-07-12] MEDS: MAGNESIUM SULFATE 2 GM/50 ML 50 ML IVPB (17:43)
[2018-07-12] MEDS: FAMOTIDINE 20 MG TAB PO (21:01)
[2018-07-13] MEDS: ALBUTEROL HFA 8 GM INHALER INH ×6 (01:00→21:00)
[2018-07-13 06:15] LABS: ADD MAN DIFF? NO
[2018-07-13 06:18] LABS: BASOPHIL # 0.1 10^3/ul (0.0-0.1); BASOPHILS % 2.2 % (0.0-2.0); EOSINOPHILS # 0.3 10^3/ul (0.0-0.5); EOSINOPHILS % 9.1 % (0.0-7.0); HEMATOCRIT 24.9 % (37.0-47.0); HEMOGLOBIN 7.9 g/dl (12.0-16.0); LYMPHOCYTES # 0.6 10^3/ul (0.8-2.9); LYMPHOCYTES % 22.1 % (15.0-51.0); MEAN CORPUSCULAR HEMOGLOBIN 27.3 pg (29.0-33.0); MEAN CORPUSCULAR HGB CONC 31.7 g/dl (32.0-37.0); MEAN CORPUSCULAR VOLUME 86.2 fl (82.0-101.0); MEAN PLATELET VOLUME 10.1 fl (7.4-10.4); MONOCYTE # 0.4 10^3/ul (0.3-0.9); MONOCYTES % 13.8 % (0.0-11.0); NEUTROPHIL # 1.5 10^3/ul (1.6-7.5); NEUTROPHILS % 52.4 % (39.0-77.0); PLATELET COUNT 365 10^3/UL (140-415); RED BLOOD COUNT 2.89 10^6/ul (4.20-5.40); RED CELL DISTRIBUTION WIDTH 14.6 % (11.5-14.5)
[2018-07-13 06:18] LABS: WHITE BLOOD COUNT 2.8 10^3/ul (4.8-10.8)
[2018-07-13 06:52] LABS: ANION GAP 9 (8-16); BLOOD UREA NITROGEN 19 mg/dl (7-20); CALCIUM 8.2 mg/dl (8.4-10.2); CARBON DIOXIDE 32 mmol/L (21-31); CHLORIDE 101 mmol/L (97-110); CREATININE 0.93 mg/dl (0.44-1.00); GLUCOSE 85 mg/dl (70-220); POTASSIUM 3.1 mmol/L (3.5-5.1); SODIUM 139 mmol/L (135-144)
[2018-07-13] MEDS: DICLOFENAC SODIUM 1% GEL 100 GM TUBE TP ×4 (08:53→21:00)
[2018-07-13] MEDS: MEROPENEM 1 GM/50ML(PMX) 50 ML IVPB ×2 (08:53→20:55)
[2018-07-13] MEDS: ENOXAPARIN 30 MG/0.3 ML SYG SC (08:54)
[2018-07-13] MEDS: FLUTICASONE 0.05% 16 GM NAS SPRAY NASAL ×2 (08:54→20:57)
[2018-07-13] MEDS: FOLIC ACID 1 MG TAB PO (08:55)
[2018-07-13] MEDS: MAGNESIUM OXIDE 400 MG TAB PO ×2 (08:55→20:57)
[2018-07-13] MEDS: hydrOXYzine HCL 10 MG TAB NGT ×3 (08:55→20:57)
[2018-07-13] MEDS: CHOLECALCIFEROL 2,000 UNIT CAP PO (08:55)
[2018-07-13] MEDS: FLUOCINONIDE 0.05% 15 GM CR TOP ×3 (08:55→20:58)
[2018-07-13] MEDS: SOD CHLORIDE 0.9% 1,000 ML IV (09:03)
[2018-07-13] MEDS: LINEZOLID 600 MG/D5W (PMX) 300 ML IVPB ×2 (09:38→21:59)
[2018-07-13] MEDS ORDERED: POTASSIUM CHLORIDE 50 ML IVPB (11:00)
[2018-07-13] MEDS: POTASSIUM CHLORIDE 50 ML IVPB ×3 (11:41→14:46)
[2018-07-13] MEDS: SOD FERRIC GLUC COMPLX 125 MG in SOD CHLORIDE 0.9% 100 ML IVPB (16:21)
[2018-07-13 20:52] LABS: ERYTHROPOIETIN 10.5 mIU/mL (2.6-18.5)
[2018-07-13] MEDS: FAMOTIDINE 20 MG TAB PO (20:57)
[2018-07-14] MEDS: ALBUTEROL HFA 8 GM INHALER INH ×6 (01:00→21:00)
[2018-07-14] MEDS: SOD CHLORIDE 0.9% 1,000 ML IV ×3 (04:41→16:17)
[2018-07-14 05:51] LABS: ADD MAN DIFF? NO
[2018-07-14 05:59] LABS: WHITE BLOOD COUNT 3.1 10^3/ul (4.8-10.8)
[2018-07-14 05:59] LABS: EOSINOPHILS # 0.4 10^3/ul (0.0-0.5); HEMATOCRIT 25.1 % (37.0-47.0); HEMOGLOBIN 8.1 g/dl (12.0-16.0); LYMPHOCYTES # 0.8 10^3/ul (0.8-2.9); LYMPHOCYTES % 25.6 % (15.0-51.0); MEAN CORPUSCULAR HEMOGLOBIN 27.8 pg (29.0-33.0); MEAN CORPUSCULAR HGB CONC 32.3 g/dl (32.0-37.0); MEAN CORPUSCULAR VOLUME 86.3 fl (82.0-101.0); MEAN PLATELET VOLUME 9.9 fl (7.4-10.4); MONOCYTE # 0.3 10^3/ul (0.3-0.9); NEUTROPHIL # 1.6 10^3/ul (1.6-7.5); NEUTROPHILS % 50.1 % (39.0-77.0); PLATELET COUNT 327 10^3/UL (140-415); RED BLOOD COUNT 2.91 10^6/ul (4.20-5.40); RED CELL DISTRIBUTION WIDTH 14.4 % (11.5-14.5)
[2018-07-14 06:22] LABS: ANION GAP 11 (8-16); BLOOD UREA NITROGEN 19 mg/dl (7-20); CALCIUM 8.5 mg/dl (8.4-10.2); CARBON DIOXIDE 32 mmol/L (21-31); CHLORIDE 100 mmol/L (97-110); CREATININE 0.83 mg/dl (0.44-1.00); GLUCOSE 78 mg/dl (70-220); POTASSIUM 3.6 mmol/L (3.5-5.1); SODIUM 139 mmol/L (135-144)
[2018-07-14] MEDS: LINEZOLID 600 MG/D5W (PMX) 300 ML IVPB ×2 (08:31→22:10)
[2018-07-14] MEDS: FLUOCINONIDE 0.05% 15 GM CR TOP ×3 (09:00→21:25)
[2018-07-14] MEDS: FLUTICASONE 0.05% 16 GM NAS SPRAY NASAL ×2 (09:10→21:00)
[2018-07-14] MEDS: DICLOFENAC SODIUM 1% GEL 100 GM TUBE TP ×4 (09:10→21:00)
[2018-07-14] MEDS: hydrOXYzine HCL 10 MG TAB NGT ×3 (09:11→21:24)
[2018-07-14] MEDS: MAGNESIUM OXIDE 400 MG TAB PO ×2 (09:11→21:24)
[2018-07-14] MEDS: FOLIC ACID 1 MG TAB PO (09:11)
[2018-07-14] MEDS: CHOLECALCIFEROL 2,000 UNIT CAP PO (09:11)
[2018-07-14] MEDS: ENOXAPARIN 30 MG/0.3 ML SYG SC (09:12)
[2018-07-14] MEDS: MEROPENEM 1 GM/50ML(PMX) 50 ML IVPB ×2 (09:51→21:24)
[2018-07-14] MEDS: SOD FERRIC GLUC COMPLX 125 MG in SOD CHLORIDE 0.9% 100 ML IVPB (16:18)
[2018-07-14] MEDS: FAMOTIDINE 20 MG TAB PO (21:24)
[2018-07-15] MEDS: ALBUTEROL HFA 8 GM INHALER INH ×6 (01:00→21:00)
[2018-07-15 07:07] LABS: ANION GAP 9 (8-16); BLOOD UREA NITROGEN 15 mg/dl (7-20); CALCIUM 8.2 mg/dl (8.4-10.2); CARBON DIOXIDE 31 mmol/L (21-31); CHLORIDE 105 mmol/L (97-110); CREATININE 0.82 mg/dl (0.44-1.00); GLUCOSE 79 mg/dl (70-220); POTASSIUM 3.2 mmol/L (3.5-5.1); SODIUM 142 mmol/L (135-144)
[2018-07-15] MEDS: MEROPENEM 1 GM/50ML(PMX) 50 ML IVPB ×2 (08:51→21:23)
[2018-07-15] MEDS: LINEZOLID 600 MG/D5W (PMX) 300 ML IVPB ×2 (08:51→21:23)
[2018-07-15] MEDS: CHOLECALCIFEROL 2,000 UNIT CAP PO (08:52)
[2018-07-15] MEDS: MAGNESIUM OXIDE 400 MG TAB PO ×2 (08:52→21:12)
[2018-07-15] MEDS: FOLIC ACID 1 MG TAB PO (08:52)
[2018-07-15] MEDS: hydrOXYzine HCL 10 MG TAB NGT ×3 (08:52→21:00)
[2018-07-15] MEDS: DICLOFENAC SODIUM 1% GEL 100 GM TUBE TP ×4 (08:52→21:00)
[2018-07-15] MEDS: FLUTICASONE 0.05% 16 GM NAS SPRAY NASAL ×2 (08:53→21:08)
[2018-07-15] MEDS: ENOXAPARIN 30 MG/0.3 ML SYG SC (08:54)
[2018-07-15] MEDS: FLUOCINONIDE 0.05% 15 GM CR TOP ×3 (09:06→21:24)
[2018-07-15 09:47] LABS: ADD MAN DIFF? NO
[2018-07-15 09:48] LABS: WHITE BLOOD COUNT 3.2 10^3/ul (4.8-10.8)
[2018-07-15 09:48] LABS: BASOPHILS % 0.9 % (0.0-2.0); EOSINOPHILS # 0.3 10^3/ul (0.0-0.5); EOSINOPHILS % 10.2 % (0.0-7.0); HEMATOCRIT 23.9 % (37.0-47.0); HEMOGLOBIN 7.7 g/dl (12.0-16.0); LYMPHOCYTES # 0.6 10^3/ul (0.8-2.9); LYMPHOCYTES % 18.6 % (15.0-51.0); MEAN CORPUSCULAR HEMOGLOBIN 28.5 pg (29.0-33.0); MEAN CORPUSCULAR HGB CONC 32.2 g/dl (32.0-37.0); MEAN CORPUSCULAR VOLUME 88.5 fl (82.0-101.0); MEAN PLATELET VOLUME 10.2 fl (7.4-10.4); MONOCYTE # 0.3 10^3/ul (0.3-0.9); MONOCYTES % 8.7 % (0.0-11.0); NEUTROPHILS % 61.3 % (39.0-77.0); PLATELET COUNT 299 10^3/UL (140-415); RED CELL DISTRIBUTION WIDTH 14.6 % (11.5-14.5)
[2018-07-15 09:54] LABS: POSITIVE DIFF @See below
[2018-07-15] MEDS: POTASSIUM CHLORIDE (SR) 20 MEQ TAB PO (10:05)
[2018-07-15] MEDS: SOD CHLORIDE 0.9% 1,000 ML IV ×2 (14:16→17:53)
[2018-07-15] MEDS: SOD FERRIC GLUC COMPLX 125 MG in SOD CHLORIDE 0.9% 100 ML IVPB (17:26)
[2018-07-15] MEDS: MAGNESIUM SULFATE 3 GM in DEXTROSE 5% 100 ML IVPB (18:52)
[2018-07-15] MEDS: CYANOCOBALAMIN 1000 MCG INJ IM (21:09)
[2018-07-15] MEDS: FAMOTIDINE 20 MG TAB PO (21:12)
[2018-07-16] MEDS: ALBUTEROL HFA 8 GM INHALER INH ×6 (01:00→19:52)
[2018-07-16 05:12] LABS: WHITE BLOOD COUNT 4.4 10^3/ul (4.8-10.8)
[2018-07-16 05:12] LABS: ABNORMAL IP MESSAGE 1; HEMATOCRIT 18.8 % (37.0-47.0); MEAN CORPUSCULAR HEMOGLOBIN 27.3 pg (29.0-33.0); MEAN CORPUSCULAR HGB CONC 31.4 g/dl (32.0-37.0); MEAN PLATELET VOLUME 9.9 fl (7.4-10.4); PLATELET COUNT 303 10^3/UL (140-415); RED BLOOD COUNT 2.16 10^6/ul (4.20-5.40); RED CELL DISTRIBUTION WIDTH 14.6 % (11.5-14.5)
[2018-07-16 05:33] LABS: POSITIVE DIFF @See below
[2018-07-16 05:40] LABS: HEMOGLOBIN 5.9 g/dl (12.0-16.0)
[2018-07-16 05:40] LABS: MAGNESIUM 2.4 mg/dl (1.7-2.5)
[2018-07-16 05:41] LABS: ADD MAN DIFF? YES; PATH REVIEW? YES
[2018-07-16 05:45] LABS: ANION GAP 11 (8-16); BLOOD UREA NITROGEN 14 mg/dl (7-20); CALCIUM 8.4 mg/dl (8.4-10.2); CARBON DIOXIDE 31 mmol/L (21-31); CHLORIDE 103 mmol/L (97-110); CREATININE 0.91 mg/dl (0.44-1.00); GLUCOSE 79 mg/dl (70-220); POTASSIUM 4.1 mmol/L (3.5-5.1); SODIUM 141 mmol/L (135-144)
[2018-07-16] MEDS: SOD CHLORIDE 0.9% 1,000 ML IV ×2 (07:00→13:30)
[2018-07-16 08:33] LABS: HEMATOCRIT 24.5 % (37.0-47.0); HEMOGLOBIN 7.9 g/dl (12.0-16.0)
[2018-07-16] MEDS: MEROPENEM 1 GM/50ML(PMX) 50 ML IVPB (08:45)
[2018-07-16] MEDS: CHOLECALCIFEROL 2,000 UNIT CAP PO (08:51)
[2018-07-16] MEDS: MAGNESIUM OXIDE 400 MG TAB PO ×2 (08:51→21:59)
[2018-07-16] MEDS: hydrOXYzine HCL 10 MG TAB NGT ×3 (08:51→22:04)
[2018-07-16] MEDS: ENOXAPARIN 30 MG/0.3 ML SYG SC (08:51)
[2018-07-16] MEDS: FOLIC ACID 1 MG TAB PO (08:51)
[2018-07-16] MEDS: FLUTICASONE 0.05% 16 GM NAS SPRAY NASAL ×2 (08:52→21:59)
[2018-07-16] MEDS: DICLOFENAC SODIUM 1% GEL 100 GM TUBE TP ×4 (08:52→22:00)
[2018-07-16] MEDS: FLUOCINONIDE 0.05% 15 GM CR TOP ×3 (09:00→21:59)
[2018-07-16] MEDS ORDERED: VITAMIN A & D 5 GM OINT PACKET TOP (09:12)
[2018-07-16] MEDS: LINEZOLID 600 MG/D5W (PMX) 300 ML IVPB (09:46)
[2018-07-16 09:55] LABS: BAND NEUTROPHILS #M 0.1 10^3/ul (0.0-0.6); BAND NEUTROPHILS % (M) 4 % (0-4); BASOPHIL #M 0.1 10^3/ul (0.0-0.0); BASOPHILS % (M) 3 % (0-2); EOSINOPHILS % (M) 9 % (0-7); GIANT THROMBO% (M) 1 % (0-0); HYPOCHROMASIA 1+ (0-0); LYMPHOCYTES #M 0.6 10^3/ul (0.8-2.9); LYMPHOCYTES % (M) 14 % (15-51); MONOCYTE #M 0.5 10^3/ul (0.3-0.9); MONOCYTES % (M) 13 % (0-11); PLATELET ESTIMATE NORMAL; REACTIVE LYMPHOCYTES% (M) 1 % (0-0); SEG NEUT #M 2.6 10^3/ul (1.6-7.5); SEGMENTED NEUTROPHILS (M) % 58 % (39-77); SMUDGE%M 5 % (0-0)
[2018-07-16] MEDS: SOD CHLORIDE 0.9% 250 ML IV (15:25)
[2018-07-16] MEDS: SOD FERRIC GLUC COMPLX 125 MG in SOD CHLORIDE 0.9% 100 ML IVPB (17:05)
[2018-07-16] MEDS: FAMOTIDINE 20 MG TAB PO (21:59)
[2018-07-17] MEDS: ALBUTEROL HFA 8 GM INHALER INH ×4 (01:00→13:00)
[2018-07-17 05:30] LABS: ANION GAP 11 (8-16); BLOOD UREA NITROGEN 15 mg/dl (7-20); CALCIUM 8.6 mg/dl (8.4-10.2); CARBON DIOXIDE 31 mmol/L (21-31); CHLORIDE 106 mmol/L (97-110); CREATININE 0.84 mg/dl (0.44-1.00); GLUCOSE 101 mg/dl (70-220); POTASSIUM 3.8 mmol/L (3.5-5.1); SODIUM 144 mmol/L (135-144)
[2018-07-17] MEDS: SOD CHLORIDE 0.9% 1,000 ML IV (06:17)
[2018-07-17] MEDS: FLUOCINONIDE 0.05% 15 GM CR TOP ×2 (09:00→13:00)
[2018-07-17] MEDS: MAGNESIUM OXIDE 400 MG TAB PO (09:07)
[2018-07-17] MEDS: FOLIC ACID 1 MG TAB PO (09:07)
[2018-07-17] MEDS: CHOLECALCIFEROL 2,000 UNIT CAP PO (09:07)
[2018-07-17] MEDS: ENOXAPARIN 30 MG/0.3 ML SYG SC (09:08)
[2018-07-17] MEDS: hydrOXYzine HCL 10 MG TAB NGT ×2 (09:08→14:21)
[2018-07-17] MEDS: FLUTICASONE 0.05% 16 GM NAS SPRAY NASAL (09:14)
[2018-07-17] MEDS: DICLOFENAC SODIUM 1% GEL 100 GM TUBE TP ×2 (09:14→13:00)
[2018-07-17] MEDS: HEPARIN (100 UNITS/ML) 5 ML SYG CATHETER (16:11)
== END 2018-07-17 17:00 | disposition home or self-care (01) | DRG 682 ==
LOC: TEL 22:31 → E/R 19:58 → PP2 07-07 14:45
DX: N17.9 Acute kidney failure, unspecified (principal); A41.9 Sepsis, unspecified organism; R78.81 Bacteremia; N39.0 Urinary tract infection, site not specified; E87.2 Acidosis; E87.1 Hypo-osmolality and hyponatremia; E86.0 Dehydration; E11.65 Type 2 diabetes mellitus with hyperglycemia; D50.9 Iron deficiency anemia, unspecified; E83.42 Hypomagnesemia; R19.7 Diarrhea, unspecified; E87.5 Hyperkalemia; L30.9 Dermatitis, unspecified; B37.3 Candidiasis of vulva and vagina; R25.2 Cramp and spasm; E83.39 Other disorders of phosphorus metabolism; B95.62 Methicillin resistant Staphylococcus aureus infection as the cause of diseases classified elsewhere; B96.1 Klebsiella pneumoniae [K. pneumoniae] as the cause of diseases classified elsewhere; Z93.2 Ileostomy status
CPT/HCPCS: 36415; 71045; 80048; 80053; 80202; 81001; 82565; 82607; 82668; 82728; 82746; 83036; 83540; 83605; 83690; 83735; 84100; 84145; 84484; 84520; 85014; 85018; 85025; 85610; 85730; 86850; 86900; 86901; 87040; 87045; 87070; 87086; 93005; 97116; 97161; 97530; 99291-25

== ENCOUNTER 2019-06-05 17:15 | Inpatient (IN) | payer OTHER ==
[2019-06-05 20:00] LABS: ADD MAN DIFF? NO
[2019-06-05] MEDS: ONDANSETRON 4 MG INJ IV (20:06)
[2019-06-05] MEDS: SOD CHLORIDE 0.9% 500 ML IV (20:06)
[2019-06-05 20:10] LABS: ABNORMAL IP MESSAGE 1; BASOPHILS % 0.5 % (0.0-2.0); EOSINOPHILS % 0.1 % (0.0-7.0); HEMATOCRIT 32.6 % (37.0-47.0); LYMPHOCYTES # 0.2 10^3/ul (0.8-2.9); LYMPHOCYTES % 3.2 % (15.0-51.0); MEAN CORPUSCULAR HEMOGLOBIN 27.9 pg (29.0-33.0); MEAN CORPUSCULAR HGB CONC 33.7 g/dl (32.0-37.0); MEAN CORPUSCULAR VOLUME 82.7 fl (82.0-101.0); MEAN PLATELET VOLUME 8.7 fl (7.4-10.4); MONOCYTE # 0.7 10^3/ul (0.3-0.9); MONOCYTES % 9.3 % (0.0-11.0); NEUTROPHIL # 6.5 10^3/ul (1.6-7.5); PLATELET COUNT 462 10^3/UL (140-415); RED BLOOD COUNT 3.94 10^6/ul (4.20-5.40); RED CELL DISTRIBUTION WIDTH 13.2 % (11.5-14.5)
[2019-06-05 20:10] LABS: WHITE BLOOD COUNT 7.6 10^3/ul (4.8-10.8)
[2019-06-05 20:23] LABS: ALANINE AMINOTRANSFERASE 21 IU/L (13-69); ALBUMIN 4.4 g/dl (3.3-4.9); ALBUMIN/GLOBULIN RATIO 1.62; ALKALINE PHOSPHATASE 96 IU/L (42-121); ANION GAP 15 (5-13); ASPARTATE AMINO TRANSFERASE 32 IU/L (15-46); BILIRUBIN,INDIRECT 0.3 mg/dl (0-1.1); BILIRUBIN,TOTAL 0.3 mg/dl (0.2-1.3); BLOOD UREA NITROGEN 35 mg/dl (7-20); CALCIUM 9.6 mg/dl (8.4-10.2); CARBON DIOXIDE 32 mmol/L (21-31); CHLORIDE 73 mmol/L (97-110); CREATININE 1.61 mg/dl (0.44-1.00); Estimated GFR 35 mL/min (>60); GLUCOSE 136 mg/dl (70-220); POTASSIUM 4.1 mmol/L (3.5-5.1); TOTAL PROTEIN 7.1 g/dl (6.1-8.1)
[2019-06-05 20:26] LABS: INR 0.95; PROTIME 12.8 Sec (11.9-14.9)
[2019-06-05 20:27] LABS: PARTIAL THROMBOPLASTIN TIME 29.4 Sec (23.0-35.0)
[2019-06-05] MEDS: PANTOPRAZOLE IV 80 MG in SOD CHLORIDE 0.9% 100 ML IVPB (20:27)
[2019-06-05 20:29] LABS: SODIUM 120 mmol/L (135-144)
[2019-06-05 20:34] LABS: TROPONIN-I < 0.012 ng/ml (0.000-0.120)
[2019-06-05] MEDS: PANTOPRAZOLE IV 80 MG in SOD CHLORIDE 0.9% 100 ML IV (20:57)
[2019-06-05] MEDS: SOD CHLORIDE 0.9% 1,000 ML IV ×2 (21:35→23:01)
[2019-06-05] MEDS ORDERED: ACETAMINOPHEN 325 MG TAB PO (22:00)
[2019-06-05] MEDS ORDERED: ONDANSETRON 4 MG INJ IV (22:00)
[2019-06-05 22:54] LABS: OSMOLALITY,URINE 479 mOsm/kg (250-1200)
[2019-06-05 23:04] LABS: SODIUM,URINE RANDOM > 198 mmol/L (30-90)
[2019-06-05] MEDS ORDERED: ALBUTEROL HFA 8 GM INHALER INH (23:30)
[2019-06-06 07:19] LABS: WHITE BLOOD COUNT 4.2 10^3/ul (4.8-10.8)
[2019-06-06 07:19] LABS: ABNORMAL IP MESSAGE 1; HEMATOCRIT 29.7 % (37.0-47.0); HEMOGLOBIN 9.5 g/dl (12.0-16.0); MEAN CORPUSCULAR HEMOGLOBIN 27.4 pg (29.0-33.0); MEAN CORPUSCULAR VOLUME 85.6 fl (82.0-101.0); MEAN PLATELET VOLUME 8.8 fl (7.4-10.4); PLATELET COUNT 357 10^3/UL (140-415); RED BLOOD COUNT 3.47 10^6/ul (4.20-5.40); RED CELL DISTRIBUTION WIDTH 13.4 % (11.5-14.5)
[2019-06-06 07:24] LABS: ADD MAN DIFF? YES; POSITIVE DIFF @See below
[2019-06-06 07:43] LABS: ALANINE AMINOTRANSFERASE 31 IU/L (13-69); ALBUMIN 3.3 g/dl (3.3-4.9); ALBUMIN/GLOBULIN RATIO 1.13; ALKALINE PHOSPHATASE 83 IU/L (42-121); ANION GAP 9 (5-13); ASPARTATE AMINO TRANSFERASE 23 IU/L (15-46); BILIRUBIN,INDIRECT 0.3 mg/dl (0-1.1); BILIRUBIN,TOTAL 0.3 mg/dl (0.2-1.3); BLOOD UREA NITROGEN 25 mg/dl (7-20); CALCIUM 8.4 mg/dl (8.4-10.2); CARBON DIOXIDE 29 mmol/L (21-31); CHLORIDE 88 mmol/L (97-110); CREATININE 1.25 mg/dl (0.44-1.00); Estimated GFR 47 mL/min (>60); GLUCOSE 90 mg/dl (70-220); POTASSIUM 3.2 mmol/L (3.5-5.1); SODIUM 126 mmol/L (135-144); TOTAL PROTEIN 6.2 g/dl (6.1-8.1)
[2019-06-06 07:45] LABS: INR 0.99; PROTIME 13.2 Sec (11.9-14.9)
[2019-06-06 07:46] LABS: PARTIAL THROMBOPLASTIN TIME 30.4 Sec (23.0-35.0)
[2019-06-06 08:16] LABS: THYROID STIMULATING HORMONE 0.644 MIU/L (0.465-4.680)
[2019-06-06] MEDS: FOLIC ACID 1 MG TAB PO (08:22)
[2019-06-06] MEDS: POTASSIUM CHLORIDE (SR) 20 MEQ TAB PO ×2 (08:22→21:03)
[2019-06-06] MEDS: MAGNESIUM OXIDE 400 MG TAB PO ×2 (08:22→21:03)
[2019-06-06] MEDS: hydrOXYzine HCL 10 MG TAB PO (08:22)
[2019-06-06] MEDS: CHOLECALCIFEROL 2,000 UNIT CAP PO (08:23)
[2019-06-06 08:26] LABS: ANISOCYTOSIS 1+ (0-0); BAND NEUTROPHILS #M 1.2 10^3/ul (0.0-0.6); BAND NEUTROPHILS % (M) 29 % (0-4); EOSINOPHILS % (M) 1 % (0-7); GIANT THROMBO% (M) 2 % (0-0); HYPOCHROMASIA 1+ (0-0); LYMPHOCYTES #M 0.4 10^3/ul (0.8-2.9); LYMPHOCYTES % (M) 10 % (15-51); METAMYELOCYTES %M 1 % (0-0); MICROCYTOSIS 1+ (0-0); MONOCYTE #M 0.5 10^3/ul (0.3-0.9); MONOCYTES % (M) 13 % (0-11); PLATELET ESTIMATE NORMAL; POLYCHROMASIA 1+ (0-0); SEGMENTED NEUTROPHILS (M) % 46 % (39-77); SMUDGE%M 5 % (0-0)
[2019-06-06 08:33] LABS: MAGNESIUM 1.9 mg/dl (1.7-2.5); PHOSPHORUS 3.2 mg/dl (2.5-4.9)
[2019-06-06 08:47] LABS: OSMOLALITY 259 mOsm/kg (280-295)
[2019-06-06 09:16] LABS: FREE T4 (FREE THYROXINE) 3.04 ng/dl (0.64-1.79)
[2019-06-06] MEDS: SOD CHLORIDE 0.9% 1,000 ML IV ×2 (10:50→18:30)
[2019-06-07] MEDS: SOD CHLORIDE 0.9% 1,000 ML IV ×2 (05:16→16:38)
[2019-06-07 07:02] LABS: WHITE BLOOD COUNT 6.3 10^3/ul (4.8-10.8)
[2019-06-07 07:02] LABS: ABNORMAL IP MESSAGE 1; HEMATOCRIT 30.2 % (37.0-47.0); HEMOGLOBIN 9.8 g/dl (12.0-16.0); MEAN CORPUSCULAR HEMOGLOBIN 27.8 pg (29.0-33.0); MEAN CORPUSCULAR HGB CONC 32.5 g/dl (32.0-37.0); MEAN CORPUSCULAR VOLUME 85.8 fl (82.0-101.0); MEAN PLATELET VOLUME 8.8 fl (7.4-10.4); PLATELET COUNT 368 10^3/UL (140-415); RED BLOOD COUNT 3.52 10^6/ul (4.20-5.40); RED CELL DISTRIBUTION WIDTH 13.4 % (11.5-14.5)
[2019-06-07 07:07] LABS: ADD MAN DIFF? YES; POSITIVE DIFF @See below
[2019-06-07 07:29] LABS: ANION GAP 11 (5-13); BLOOD UREA NITROGEN 20 mg/dl (7-20); CALCIUM 8.4 mg/dl (8.4-10.2); CARBON DIOXIDE 17 mmol/L (21-31); CHLORIDE 101 mmol/L (97-110); CREATININE 1.13 mg/dl (0.44-1.00); Estimated GFR 53 mL/min (>60); GLUCOSE 96 mg/dl (70-220); SODIUM 129 mmol/L (135-144)
[2019-06-07] MEDS: hydrOXYzine HCL 10 MG TAB PO ×2 (08:28→23:47)
[2019-06-07] MEDS: MAGNESIUM OXIDE 400 MG TAB PO ×2 (08:28→23:47)
[2019-06-07] MEDS: FOLIC ACID 1 MG TAB PO (08:28)
[2019-06-07] MEDS: POTASSIUM CHLORIDE (SR) 20 MEQ TAB PO ×2 (08:28→23:47)
[2019-06-07] MEDS: CHOLECALCIFEROL 2,000 UNIT CAP PO (08:28)
[2019-06-07 08:56] LABS: ANISOCYTOSIS 1+ (0-0); BAND NEUTROPHILS #M 1.1 10^3/ul (0.0-0.6); BAND NEUTROPHILS % (M) 18 % (0-4); BURR CELLS 2+ (0-0); EOSINOPHILS % (M) 2 % (0-7); GIANT THROMBO% (M) 3 % (0-0); LYMPHOCYTES #M 0.3 10^3/ul (0.8-2.9); LYMPHOCYTES % (M) 6 % (15-51); METAMYELOCYTES %M 1 % (0-0); MONOCYTE #M 0.9 10^3/ul (0.3-0.9); MONOCYTES % (M) 15 % (0-11); MYELOCYTES % (M) 1 % (0-0); PLATELET ESTIMATE NORMAL; POIKILOCYTOSIS 2+ (0-0); POLYCHROMASIA 1+ (0-0); REACTIVE LYMPHOCYTES% (M) 1 % (0-0); SEG NEUT #M 3.6 10^3/ul (1.6-7.5); SEGMENTED NEUTROPHILS (M) % 56 % (39-77); SMUDGE%M 10 % (0-0)
[2019-06-07] MEDS: CYANOCOBALAMIN 1000 MCG INJ SC (16:45)
[2019-06-08 06:30] LABS: ANION GAP 8 (5-13); BLOOD UREA NITROGEN 16 mg/dl (7-20); CARBON DIOXIDE 16 mmol/L (21-31); CHLORIDE 111 mmol/L (97-110); CREATININE 0.86 mg/dl (0.44-1.00); Estimated GFR > 60 mL/min (>60); GLUCOSE 120 mg/dl (70-220); POTASSIUM 4.7 mmol/L (3.5-5.1); SODIUM 135 mmol/L (135-144)
[2019-06-08 06:31] LABS: CHOLESTEROL 119 mg/dl (100-200)
[2019-06-08 06:31] LABS: CHOL/HDL RATIO 2.4 RATIO; HDL CHOLESTEROL 48 mg/dl (34-88); LDL CHOLESTEROL,CALCULATED 44 mg/dl; TRIGLYCERIDES 135 mg/dl (0-149)
[2019-06-08] MEDS: MAGNESIUM OXIDE 400 MG TAB PO ×2 (08:46→22:21)
[2019-06-08] MEDS: POTASSIUM CHLORIDE (SR) 20 MEQ TAB PO ×2 (08:46→22:20)
[2019-06-08] MEDS: FOLIC ACID 1 MG TAB PO (08:46)
[2019-06-08] MEDS: CHOLECALCIFEROL 2,000 UNIT CAP PO (08:46)
[2019-06-08] MEDS: SOD CHLORIDE 0.9% 1,000 ML IV ×2 (10:11→14:56)
[2019-06-08] MEDS: CITRIC ACID/NA CITRATE 30 ML CUP PO ×2 (12:10→22:20)
[2019-06-08] MEDS: DIGOXIN 500 MCG INJ IV (14:50)
[2019-06-08] MEDS: MIDODRINE 2.5 MG TAB PO (16:49)
[2019-06-08] MEDS: LORAZEPAM 2 MG INJ IV (17:56)
[2019-06-08] MEDS: hydrOXYzine HCL 10 MG TAB PO (22:21)
[2019-06-09] MEDS: SOD CHLORIDE 0.9% 1,000 ML IV ×2 (04:13→16:16)
[2019-06-09 05:59] LABS: ADD MAN DIFF? NO
[2019-06-09 06:06] LABS: ABNORMAL IP MESSAGE 1; BASOPHIL # 0.1 10^3/ul (0.0-0.1); EOSINOPHILS # 0.3 10^3/ul (0.0-0.5); EOSINOPHILS % 5.3 % (0.0-7.0); HEMATOCRIT 30.2 % (37.0-47.0); HEMOGLOBIN 9.7 g/dl (12.0-16.0); LYMPHOCYTES # 0.4 10^3/ul (0.8-2.9); MEAN CORPUSCULAR HEMOGLOBIN 27.7 pg (29.0-33.0); MEAN CORPUSCULAR HGB CONC 32.1 g/dl (32.0-37.0); MEAN CORPUSCULAR VOLUME 86.3 fl (82.0-101.0); MEAN PLATELET VOLUME 8.7 fl (7.4-10.4); MONOCYTE # 0.5 10^3/ul (0.3-0.9); MONOCYTES % 10.8 % (0.0-11.0); NEUTROPHIL # 3.4 10^3/ul (1.6-7.5); PLATELET COUNT 391 10^3/UL (140-415); RED CELL DISTRIBUTION WIDTH 13.6 % (11.5-14.5)
[2019-06-09 06:06] LABS: WHITE BLOOD COUNT 4.9 10^3/ul (4.8-10.8)
[2019-06-09 06:37] LABS: POSITIVE DIFF @See below
[2019-06-09 07:21] LABS: ANION GAP 7 (5-13); BLOOD UREA NITROGEN 12 mg/dl (7-20); CALCIUM 9.2 mg/dl (8.4-10.2); CARBON DIOXIDE 21 mmol/L (21-31); CHLORIDE 110 mmol/L (97-110); CREATININE 0.76 mg/dl (0.44-1.00); Estimated GFR > 60 mL/min (>60); GLUCOSE 98 mg/dl (70-220); POTASSIUM 4.8 mmol/L (3.5-5.1); SODIUM 138 mmol/L (135-144)
[2019-06-09 07:53] LABS: CHOLESTEROL 109 mg/dl (100-200)
[2019-06-09 07:53] LABS: CHOL/HDL RATIO 3.2 RATIO; HDL CHOLESTEROL 34 mg/dl (34-88); LDL CHOLESTEROL,CALCULATED 48 mg/dl; TRIGLYCERIDES 136 mg/dl (0-149)
[2019-06-09] MEDS: MIDODRINE 2.5 MG TAB PO ×2 (09:02→13:11)
[2019-06-09] MEDS: CHOLECALCIFEROL 2,000 UNIT CAP PO (09:02)
[2019-06-09] MEDS: CITRIC ACID/NA CITRATE 30 ML CUP PO ×2 (09:02→21:44)
[2019-06-09] MEDS: FOLIC ACID 1 MG TAB PO (09:03)
[2019-06-09] MEDS: MAGNESIUM OXIDE 400 MG TAB PO ×2 (09:03→21:44)
[2019-06-09] MEDS: POTASSIUM CHLORIDE (SR) 20 MEQ TAB PO ×2 (09:03→21:44)
[2019-06-09] MEDS: MIDODRINE 5 MG TAB PO (16:15)
[2019-06-09] MEDS: hydrOXYzine HCL 10 MG TAB PO (21:44)
[2019-06-10] MEDS: LORAZEPAM 2 MG INJ IV (00:42)
[2019-06-10] MEDS: SOD CHLORIDE 0.9% 1,000 ML IV ×2 (05:02→18:13)
[2019-06-10] MEDS: BISACODYL (EC) 5 MG TAB PO (05:02)
[2019-06-10 07:07] LABS: ANION GAP 13 (5-13); BLOOD UREA NITROGEN 15 mg/dl (7-20); CALCIUM 10.5 mg/dl (8.4-10.2); CARBON DIOXIDE 25 mmol/L (21-31); CHLORIDE 102 mmol/L (97-110); CREATININE 1.17 mg/dl (0.44-1.00); Estimated GFR 50 mL/min (>60); GLUCOSE 132 mg/dl (70-220); POTASSIUM 4.7 mmol/L (3.5-5.1); SODIUM 140 mmol/L (135-144)
[2019-06-10] MEDS: FAMOTIDINE 20 MG TAB PO (08:57)
[2019-06-10] MEDS: CHOLECALCIFEROL 2,000 UNIT CAP PO (08:57)
[2019-06-10] MEDS: MIDODRINE 5 MG TAB PO ×3 (08:58→17:54)
[2019-06-10] MEDS: POTASSIUM CHLORIDE (SR) 20 MEQ TAB PO ×2 (08:58→21:08)
[2019-06-10] MEDS: MAGNESIUM OXIDE 400 MG TAB PO ×2 (08:58→21:08)
[2019-06-10] MEDS: CITRIC ACID/NA CITRATE 30 ML CUP PO ×2 (08:58→21:09)
[2019-06-10] MEDS: FOLIC ACID 1 MG TAB PO (08:58)
[2019-06-10] MEDS: morphine 2 MG INJ IV ×2 (09:09→13:25)
[2019-06-10] MEDS: METOCLOPRAMIDE 10 MG INJ IV ×2 (12:13→17:54)
[2019-06-10] MEDS: ONDANSETRON 4 MG INJ IV (16:39)
[2019-06-10] MEDS: hydrOXYzine HCL 10 MG TAB PO (21:07)
[2019-06-11] MEDS: METOCLOPRAMIDE 10 MG INJ IV ×4 (00:27→17:35)
[2019-06-11 08:26] LABS: URIC ACID 9.2 mg/dl (3.1-7.9)
[2019-06-11] MEDS: SOD CHLORIDE 0.9% 1,000 ML IV (08:40)
[2019-06-11] MEDS: CHOLECALCIFEROL 2,000 UNIT CAP PO (08:46)
[2019-06-11] MEDS: MIDODRINE 5 MG TAB PO ×3 (08:46→17:35)
[2019-06-11] MEDS: MAGNESIUM OXIDE 400 MG TAB PO ×2 (08:46→20:14)
[2019-06-11] MEDS: CITRIC ACID/NA CITRATE 30 ML CUP PO ×2 (08:47→20:13)
[2019-06-11] MEDS: POTASSIUM CHLORIDE (SR) 20 MEQ TAB PO ×2 (08:47→20:14)
[2019-06-11] MEDS: FOLIC ACID 1 MG TAB PO (08:47)
[2019-06-11 09:58] LABS: OCCULT BLOOD STOOL NEGATIVE (NEGATIVE)
[2019-06-11] MEDS: METOPROLOL 5 MG INJ IV (10:07)
[2019-06-11] MEDS ORDERED: ADENOSINE 2 ML (13:03)
[2019-06-11] MEDS: ADENOSINE 6 MG INJ IV ×3 (13:19→13:45)
[2019-06-11] MEDS: ATENOLOL 25 MG TAB PO ×2 (13:21→20:01)
[2019-06-11] MEDS ORDERED: ADENOSINE 6 MG INJ IV (13:30)
[2019-06-11] MEDS: DIGOXIN 500 MCG INJ IV (13:34)
[2019-06-11] MEDS: SOD CHLORIDE 0.9% 500 ML IV ×2 (14:48→20:15)
[2019-06-11] MEDS: PANTOPRAZOLE (EC) 40 MG TAB PO (17:35)
[2019-06-11] MEDS: MIDODRINE 2.5 MG TAB PO (20:14)
[2019-06-11] MEDS: hydrOXYzine HCL 10 MG TAB PO (20:14)
[2019-06-11] MEDS: ACETAMINOPHEN 500 MG TAB PO (20:57)
[2019-06-12] MEDS: METOCLOPRAMIDE 10 MG INJ IV ×6 (00:42→23:09)
[2019-06-12] MEDS: SOD CHLORIDE 0.9% 1,000 ML IV ×2 (00:47→20:23)
[2019-06-12] MEDS: ACETAMINOPHEN 500 MG TAB PO ×2 (01:40→12:57)
[2019-06-12] MEDS ORDERED: NORepinephrine 8MG/250 ML (PMX 250 ML (04:12)
[2019-06-12] MEDS ORDERED: DOPamine-D5W 1.6 MG/ML 250 ML (04:31)
[2019-06-12] MEDS: DOPamine-D5W 1.6 MG/ML 250 ML IV (05:14)
[2019-06-12] MEDS: PANTOPRAZOLE (EC) 40 MG TAB PO (05:14)
[2019-06-12 05:27] LABS: ADD MAN DIFF? NO
[2019-06-12 05:32] LABS: ABNORMAL IP MESSAGE 1; BASOPHILS % 0.2 % (0.0-2.0); HEMATOCRIT 27.6 % (37.0-47.0); HEMOGLOBIN 8.8 g/dl (12.0-16.0); LYMPHOCYTES # 0.1 10^3/ul (0.8-2.9); LYMPHOCYTES % 1.1 % (15.0-51.0); MEAN CORPUSCULAR HEMOGLOBIN 27.6 pg (29.0-33.0); MEAN CORPUSCULAR HGB CONC 31.9 g/dl (32.0-37.0); MEAN CORPUSCULAR VOLUME 86.5 fl (82.0-101.0); MEAN PLATELET VOLUME 8.8 fl (7.4-10.4); MONOCYTE # 0.2 10^3/ul (0.3-0.9); MONOCYTES % 1.8 % (0.0-11.0); NEUTROPHIL # 11.8 10^3/ul (1.6-7.5); NEUTROPHILS % 94.4 % (39.0-77.0); PLATELET COUNT 238 10^3/UL (140-415); RED BLOOD COUNT 3.19 10^6/ul (4.20-5.40)
[2019-06-12 05:32] LABS: WHITE BLOOD COUNT 12.5 10^3/ul (4.8-10.8)
[2019-06-12 05:40] LABS: POSITIVE DIFF @See below
[2019-06-12 06:06] LABS: IRON < 10 ug/dl (35-150)
[2019-06-12 06:14] LABS: TOTAL IRON BINDING CAPACITY 269 ug/dl (241-421)
[2019-06-12 06:21] LABS: ANION GAP 6 (5-13); BLOOD UREA NITROGEN 27 mg/dl (7-20); CALCIUM 7.8 mg/dl (8.4-10.2); CARBON DIOXIDE 32 mmol/L (21-31); CHLORIDE 92 mmol/L (97-110); CREATININE 2.05 mg/dl (0.44-1.00); Estimated GFR 26 mL/min (>60); GLUCOSE 104 mg/dl (70-220); POTASSIUM 4.9 mmol/L (3.5-5.1); SODIUM 130 mmol/L (135-144)
[2019-06-12] MEDS: ATENOLOL 25 MG TAB PO ×2 (08:34→20:14)
[2019-06-12] MEDS: FOLIC ACID 1 MG TAB PO (08:35)
[2019-06-12] MEDS: MAGNESIUM OXIDE 400 MG TAB PO ×2 (08:35→20:14)
[2019-06-12] MEDS: ALLOPURINOL 100 MG TAB PO (08:35)
[2019-06-12] MEDS: CITRIC ACID/NA CITRATE 30 ML CUP PO ×2 (08:42→20:14)
[2019-06-12] MEDS: MIDODRINE 2.5 MG TAB PO ×3 (08:44→17:52)
[2019-06-12] MEDS: POTASSIUM CHLORIDE (SR) 20 MEQ TAB PO ×2 (08:49→20:14)
[2019-06-12] MEDS ORDERED: ALLOPURINOL 100 MG TAB PO (09:00)
[2019-06-12] MEDS: PHENYLephrine 20MG IN 250 ML 250 ML IV ×5 (10:36→22:21)
[2019-06-12 12:29] LABS: HEMATOCRIT 29.7 % (37.0-47.0); HEMOGLOBIN 9.4 g/dl (12.0-16.0)
[2019-06-12 12:36] LABS: RETICULOCYTE RBC 3.44
[2019-06-12 12:36] LABS: RETICULOCYTE COUNT # 0.116 X10^6 (0.020-0.110); RETICULOCYTE COUNT % 3.4 % (0.5-1.5)
[2019-06-12] MEDS: SOD FERRIC GLUC COMPLX 125 MG in SOD CHLORIDE 0.9% 100 ML IVPB (13:00)
[2019-06-12 14:04] LABS: FOLATE > 20.0 ng/ml (2.8-20.0)
[2019-06-12] MEDS: LIDOCAINE 1% (MPF) 5 ML VIAL SC (14:45)
[2019-06-12] MEDS: PANTOPRAZOLE 40 MG INJ IV (17:53)
[2019-06-12] MEDS: CHOLECALCIFEROL 2,000 UNIT CAP PO (17:58)
[2019-06-12] MEDS: morphine 2 MG INJ IV ×2 (19:08→23:09)
[2019-06-12] MEDS: hydrOXYzine HCL 10 MG TAB PO (20:14)
[2019-06-12] MEDS: SOD CHLORIDE 0.9% 250 ML IV (20:18)
[2019-06-12] MEDS: PIPER-TAZO 2.25 GM (PMX) 50 ML IVPB (22:29)
[2019-06-13 00:05] LABS: POTASSIUM 3.7 mmol/L (3.5-5.1)
[2019-06-13 00:06] LABS: LACTIC ACID 0.9 mmol/L (0.5-2.0)
[2019-06-13] MEDS: PHENYLephrine 20MG IN 250 ML 250 ML IV ×3 (00:06→03:00)
[2019-06-13] MEDS: METOPROLOL 5 MG INJ IV (00:32)
[2019-06-13] MEDS: MAGNESIUM SULFATE 2 GM/50 ML 50 ML IVPB ×2 (01:29→04:19)
[2019-06-13] MEDS: PHENYLephrine 80 MG in DEXTROSE 5% 242 ML IV ×4 (04:16→22:14)
[2019-06-13] MEDS ORDERED: VASOPRESSIN 60 UNIT in DEXTROSE 5% 57 ML IV (04:30)
[2019-06-13] MEDS: METOCLOPRAMIDE 10 MG INJ IV ×4 (05:18→23:43)
[2019-06-13] MEDS: PANTOPRAZOLE 40 MG INJ IV ×2 (05:18→17:33)
[2019-06-13 05:40] LABS: ANION GAP 8 (5-13); BLOOD UREA NITROGEN 22 mg/dl (7-20); CALCIUM 6.7 mg/dl (8.4-10.2); CARBON DIOXIDE 22 mmol/L (21-31); CHLORIDE 103 mmol/L (97-110); CREATININE 1.06 mg/dl (0.44-1.00); Estimated GFR 57 mL/min (>60); GLUCOSE 99 mg/dl (70-220); MAGNESIUM 2.9 mg/dl (1.7-2.5); PHOSPHORUS 2.3 mg/dl (2.5-4.9); SODIUM 133 mmol/L (135-144)
[2019-06-13 06:08] LABS: POTASSIUM 2.9 mmol/L (3.5-5.1)
[2019-06-13] MEDS: PIPER-TAZO 2.25 GM (PMX) 50 ML IVPB ×4 (06:24→23:43)
[2019-06-13 07:45] LABS: ABNORMAL IP MESSAGE 1; HEMATOCRIT 29.5 % (37.0-47.0); HEMOGLOBIN 9.1 g/dl (12.0-16.0); MEAN CORPUSCULAR HEMOGLOBIN 27.4 pg (29.0-33.0); MEAN CORPUSCULAR HGB CONC 30.8 g/dl (32.0-37.0); MEAN CORPUSCULAR VOLUME 88.9 fl (82.0-101.0); MEAN PLATELET VOLUME 9.7 fl (7.4-10.4); PLATELET COUNT 167 10^3/UL (140-415); RED BLOOD COUNT 3.32 10^6/ul (4.20-5.40); RED CELL DISTRIBUTION WIDTH 14.2 % (11.5-14.5)
[2019-06-13 07:45] LABS: WHITE BLOOD COUNT 19.3 10^3/ul (4.8-10.8)
[2019-06-13 07:52] LABS: ADD MAN DIFF? YES; POSITIVE DIFF @See below
[2019-06-13 08:43] LABS: ALANINE AMINOTRANSFERASE 78 IU/L (13-69); ALBUMIN 2.3 g/dl (3.3-4.9); ALKALINE PHOSPHATASE 78 IU/L (42-121); ASPARTATE AMINO TRANSFERASE 143 IU/L (15-46); BILIRUBIN,INDIRECT 0.3 mg/dl (0-1.1); BILIRUBIN,TOTAL 0.3 mg/dl (0.2-1.3)
[2019-06-13] MEDS: CHOLECALCIFEROL 2,000 UNIT CAP PO (08:48)
[2019-06-13] MEDS: ALLOPURINOL 100 MG TAB PO (08:48)
[2019-06-13] MEDS: ATENOLOL 25 MG TAB PO ×2 (08:48→21:00)
[2019-06-13] MEDS: MAGNESIUM OXIDE 400 MG TAB PO ×2 (08:49→20:09)
[2019-06-13] MEDS: MIDODRINE 2.5 MG TAB PO ×3 (08:49→16:17)
[2019-06-13] MEDS: FOLIC ACID 1 MG TAB PO (08:49)
[2019-06-13] MEDS: CITRIC ACID/NA CITRATE 30 ML CUP PO ×2 (08:49→20:11)
[2019-06-13] MEDS: POTASSIUM CHLORIDE (SR) 20 MEQ TAB PO ×2 (08:49→20:09)
[2019-06-13] MEDS: POTASSIUM CHLORIDE 100 ML IVPB ×2 (08:59→11:39)
[2019-06-13 09:36] LABS: TOTAL PROTEIN 4.8 g/dl (6.1-8.1)
[2019-06-13 10:28] LABS: ANISOCYTOSIS 1+ (0-0); BAND NEUTROPHILS #M 8.6 10^3/ul (0.0-0.6); BAND NEUTROPHILS % (M) 45 % (0-4); BURR CELLS 3+ (0-0); PLATELET ESTIMATE NORMAL; POIKILOCYTOSIS 3+ (0-0); POLYCHROMASIA 3+ (0-0); SEG NEUT #M 12.3 10^3/ul (1.6-7.5); SEGMENTED NEUTROPHILS (M) % 55 % (39-77); SMUDGE%M 2 % (0-0); TEAR DROP CELLS 1+ (0-0)
[2019-06-13] MEDS ORDERED: POTASSIUM CHLORIDE 100 ML IVPB (10:37)
[2019-06-13 13:18] LABS: ADD UMIC YES; UR ASCORBIC ACID NEGATIVE (NEGATIVE); UR BILIRUBIN (Dip) NEGATIVE (NEGATIVE); UR BLOOD (Dip) 2+ mg/dL (NEGATIVE); UR CLARITY CLEAR (CLEAR); UR COLOR YELLOW (YELLOW); UR GLUCOSE (Dip) NEGATIVE (NEGATIVE); UR KETONES (Dip) NEGATIVE (NEGATIVE); UR LEUKOCYTE ESTERASE (Dip) NEGATIVE Leu/ul (NEGATIVE); UR NITRITE (Dip) NEGATIVE (NEGATIVE); UR RBC 19 /HPF (0-5); UR SPECIFIC GRAVITY (Dip) 1.011 (1.003-1.030); UR TOTAL PROTEIN (Dip) NEGATIVE (NEGATIVE); UR UROBILINOGEN (Dip) NEGATIVE (NEGATIVE); UR WBC 2 /HPF (0-5)
[2019-06-13] MEDS: NS + KCL 20 MEQ 1,000 ML IV (16:02)
[2019-06-13] MEDS: SOD FERRIC GLUC COMPLX 125 MG in SOD CHLORIDE 0.9% 100 ML IVPB (16:16)
[2019-06-13] MEDS: morphine 2 MG INJ IV (20:07)
[2019-06-13] MEDS: hydrOXYzine HCL 10 MG TAB PO (20:11)
[2019-06-14] MEDS: METOPROLOL 5 MG INJ IV (03:07)
[2019-06-14] MEDS: NS + KCL 20 MEQ 1,000 ML IV ×3 (03:48→16:24)
[2019-06-14 05:07] LABS: ADD MAN DIFF? NO
[2019-06-14 05:12] LABS: WHITE BLOOD COUNT 17.8 10^3/ul (4.8-10.8)
[2019-06-14 05:12] LABS: ABNORMAL IP MESSAGE 1; BASOPHILS % 0.2 % (0.0-2.0); EOSINOPHILS % 0.1 % (0.0-7.0); HEMATOCRIT 25.7 % (37.0-47.0); HEMOGLOBIN 8.2 g/dl (12.0-16.0); LYMPHOCYTES # 0.2 10^3/ul (0.8-2.9); LYMPHOCYTES % 1.1 % (15.0-51.0); MEAN CORPUSCULAR HEMOGLOBIN 27.5 pg (29.0-33.0); MEAN CORPUSCULAR HGB CONC 31.9 g/dl (32.0-37.0); MEAN CORPUSCULAR VOLUME 86.2 fl (82.0-101.0); MEAN PLATELET VOLUME 10.7 fl (7.4-10.4); MONOCYTE # 0.4 10^3/ul (0.3-0.9); MONOCYTES % 2.1 % (0.0-11.0); NEUTROPHIL # 17.1 10^3/ul (1.6-7.5); NEUTROPHILS % 95.7 % (39.0-77.0); PLATELET COUNT 117 10^3/UL (140-415); RED BLOOD COUNT 2.98 10^6/ul (4.20-5.40); RED CELL DISTRIBUTION WIDTH 14.5 % (11.5-14.5)
[2019-06-14 05:16] LABS: POSITIVE DIFF @See below
[2019-06-14 05:34] LABS: INR 1.93; PROTIME 22.1 Sec (11.9-14.9); PT RATIO 1.7
[2019-06-14 05:39] LABS: MAGNESIUM 2.6 mg/dl (1.7-2.5)
[2019-06-14 05:39] LABS: PHOSPHORUS 1.7 mg/dl (2.5-4.9)
[2019-06-14 05:41] LABS: PARTIAL THROMBOPLASTIN TIME 73.7 Sec (23.0-35.0)
[2019-06-14 05:46] LABS: ALANINE AMINOTRANSFERASE 77 IU/L (13-69); ALBUMIN 2.3 g/dl (3.3-4.9); ALBUMIN/GLOBULIN RATIO 0.95; ALKALINE PHOSPHATASE 104 IU/L (42-121); ANION GAP 4 (5-13); ASPARTATE AMINO TRANSFERASE 108 IU/L (15-46); BILIRUBIN,INDIRECT 0.2 mg/dl (0-1.1); BILIRUBIN,TOTAL 0.2 mg/dl (0.2-1.3); BLOOD UREA NITROGEN 23 mg/dl (7-20); CALCIUM 7.4 mg/dl (8.4-10.2); CARBON DIOXIDE 23 mmol/L (21-31); CHLORIDE 109 mmol/L (97-110); CREATININE 1.06 mg/dl (0.44-1.00); Estimated GFR 57 mL/min (>60); GLUCOSE 99 mg/dl (70-220); POTASSIUM 4.3 mmol/L (3.5-5.1); SODIUM 136 mmol/L (135-144); TOTAL PROTEIN 4.7 g/dl (6.1-8.1)
[2019-06-14] MEDS: METOCLOPRAMIDE 10 MG INJ IV (06:22)
[2019-06-14] MEDS: PANTOPRAZOLE 40 MG INJ IV ×2 (06:22→17:31)
[2019-06-14] MEDS: PIPER-TAZO 2.25 GM (PMX) 50 ML IVPB ×4 (06:23→23:20)
[2019-06-14] MEDS: CHOLECALCIFEROL 2,000 UNIT CAP PO (08:28)
[2019-06-14] MEDS: CITRIC ACID/NA CITRATE 30 ML CUP PO ×2 (08:29→20:40)
[2019-06-14] MEDS: ALLOPURINOL 100 MG TAB PO (08:29)
[2019-06-14] MEDS: POTASSIUM CHLORIDE (SR) 20 MEQ TAB PO ×2 (08:29→20:40)
[2019-06-14] MEDS: MIDODRINE 2.5 MG TAB PO ×3 (08:29→16:44)
[2019-06-14] MEDS: MAGNESIUM OXIDE 400 MG TAB PO ×2 (08:29→20:40)
[2019-06-14] MEDS: FOLIC ACID 1 MG TAB PO (08:29)
[2019-06-14] MEDS: ATENOLOL 25 MG TAB PO ×2 (09:00→20:41)
[2019-06-14] MEDS: PHENYLephrine 80 MG in DEXTROSE 5% 242 ML IV ×2 (10:49→20:53)
[2019-06-14] MEDS: NEUTRA-PHOS 250 MG PACKET PO ×2 (12:16→20:40)
[2019-06-14] MEDS: SOD FERRIC GLUC COMPLX 125 MG in SOD CHLORIDE 0.9% 100 ML IVPB (12:27)
[2019-06-14] MEDS: hydrOXYzine HCL 10 MG TAB PO (20:41)
[2019-06-15] MEDS: NS + KCL 20 MEQ 1,000 ML IV ×2 (03:00→04:49)
[2019-06-15] MEDS: PIPER-TAZO 2.25 GM (PMX) 50 ML IVPB ×2 (05:01→11:12)
[2019-06-15] MEDS: PANTOPRAZOLE 40 MG INJ IV ×2 (05:01→17:47)
[2019-06-15 05:53] LABS: INR 3.69; PROTIME 36.6 Sec (11.9-14.9); PT RATIO 2.9
[2019-06-15 06:09] LABS: ADD MAN DIFF? NO
[2019-06-15 06:11] LABS: MAGNESIUM 2.3 mg/dl (1.7-2.5)
[2019-06-15 06:11] LABS: PHOSPHORUS 1.7 mg/dl (2.5-4.9)
[2019-06-15 06:17] LABS: ABNORMAL IP MESSAGE 1; BASOPHILS % 0.3 % (0.0-2.0); EOSINOPHILS # 0.1 10^3/ul (0.0-0.5); EOSINOPHILS % 0.7 % (0.0-7.0); HEMATOCRIT 26.8 % (37.0-47.0); HEMOGLOBIN 8.5 g/dl (12.0-16.0); LYMPHOCYTES # 0.4 10^3/ul (0.8-2.9); LYMPHOCYTES % 3.3 % (15.0-51.0); MEAN CORPUSCULAR HEMOGLOBIN 27.4 pg (29.0-33.0); MEAN CORPUSCULAR HGB CONC 31.7 g/dl (32.0-37.0); MEAN CORPUSCULAR VOLUME 86.5 fl (82.0-101.0); MEAN PLATELET VOLUME 11.3 fl (7.4-10.4); MONOCYTE # 0.8 10^3/ul (0.3-0.9); NEUTROPHIL # 11.4 10^3/ul (1.6-7.5); NEUTROPHILS % 88.1 % (39.0-77.0); PLATELET COUNT 119 10^3/UL (140-415); RED CELL DISTRIBUTION WIDTH 14.6 % (11.5-14.5)
[2019-06-15 06:17] LABS: WHITE BLOOD COUNT 12.9 10^3/ul (4.8-10.8)
[2019-06-15 06:29] LABS: ALANINE AMINOTRANSFERASE 67 IU/L (13-69); ALBUMIN 2.4 g/dl (3.3-4.9); ALBUMIN/GLOBULIN RATIO 0.88; ALKALINE PHOSPHATASE 105 IU/L (42-121); ANION GAP 6 (5-13); ASPARTATE AMINO TRANSFERASE 73 IU/L (15-46); BILIRUBIN,INDIRECT 0.2 mg/dl (0-1.1); BILIRUBIN,TOTAL 0.2 mg/dl (0.2-1.3); BLOOD UREA NITROGEN 20 mg/dl (7-20); CALCIUM 8.1 mg/dl (8.4-10.2); CARBON DIOXIDE 21 mmol/L (21-31); CHLORIDE 114 mmol/L (97-110); CREATININE 1.02 mg/dl (0.44-1.00); Estimated GFR 59 mL/min (>60); GLUCOSE 104 mg/dl (70-220); POTASSIUM 4.8 mmol/L (3.5-5.1); SODIUM 141 mmol/L (135-144); TOTAL PROTEIN 5.1 g/dl (6.1-8.1)
[2019-06-15 06:36] LABS: POSITIVE DIFF @See below
[2019-06-15 06:56] LABS: PARTIAL THROMBOPLASTIN TIME 88.9 Sec (23.0-35.0)
[2019-06-15] MEDS: CHOLECALCIFEROL 2,000 UNIT CAP PO (08:09)
[2019-06-15] MEDS: CITRIC ACID/NA CITRATE 30 ML CUP PO ×2 (08:09→20:33)
[2019-06-15] MEDS: MAGNESIUM OXIDE 400 MG TAB PO ×2 (08:09→20:33)
[2019-06-15] MEDS: PHENYLephrine 80 MG in DEXTROSE 5% 242 ML IV (08:09)
[2019-06-15] MEDS: ATENOLOL 25 MG TAB PO ×2 (08:09→20:32)
[2019-06-15] MEDS: POTASSIUM CHLORIDE (SR) 20 MEQ TAB PO (08:09)
[2019-06-15] MEDS: ALLOPURINOL 100 MG TAB PO (08:09)
[2019-06-15] MEDS: NEUTRA-PHOS 250 MG PACKET PO ×3 (08:09→20:32)
[2019-06-15] MEDS: FOLIC ACID 1 MG TAB PO (08:16)
[2019-06-15] MEDS: MIDODRINE 2.5 MG TAB PO (08:45)
[2019-06-15 11:36] LABS: INR 4.71; PROTIME 44.2 Sec (11.9-14.9); PT RATIO 3.5
[2019-06-15] MEDS: MIDODRINE 5 MG TAB PO ×2 (12:48→17:46)
[2019-06-15] MEDS: PHYTONADIONE 10 MG/ML INJ SC (12:48)
[2019-06-15] MEDS: SOD FERRIC GLUC COMPLX 125 MG in SOD CHLORIDE 0.9% 100 ML IVPB (12:56)
[2019-06-15] MEDS: CEFTRIAXONE 1 GM/50 ML (PMX) 50 ML IVPB (17:46)
[2019-06-15] MEDS: hydrOXYzine HCL 10 MG TAB PO ×3 (20:33→23:32)
[2019-06-16] MEDS: PANTOPRAZOLE 40 MG INJ IV ×2 (05:06→18:10)
[2019-06-16 05:39] LABS: INR 1.07; PT RATIO 1.1
[2019-06-16] MEDS: CITRIC ACID/NA CITRATE 30 ML CUP PO ×2 (09:55→20:28)
[2019-06-16] MEDS: MAGNESIUM OXIDE 400 MG TAB PO ×2 (09:55→20:29)
[2019-06-16] MEDS: FOLIC ACID 1 MG TAB PO (09:55)
[2019-06-16] MEDS: ALLOPURINOL 100 MG TAB PO (09:56)
[2019-06-16] MEDS: CHOLECALCIFEROL 2,000 UNIT CAP PO (09:56)
[2019-06-16] MEDS: NEUTRA-PHOS 250 MG PACKET PO ×3 (09:56→20:28)
[2019-06-16] MEDS: MIDODRINE 5 MG TAB PO ×3 (09:56→18:10)
[2019-06-16] MEDS: ATENOLOL 25 MG TAB PO ×2 (09:57→20:15)
[2019-06-16] MEDS: morphine 2 MG INJ IV (13:37)
[2019-06-16] MEDS: SOD FERRIC GLUC COMPLX 125 MG in SOD CHLORIDE 0.9% 100 ML IVPB (14:01)
[2019-06-16] MEDS: CEFTRIAXONE 1 GM/50 ML (PMX) 50 ML IVPB (18:11)
[2019-06-16] MEDS: hydrOXYzine HCL 10 MG TAB PO (22:37)
[2019-06-17] MEDS: PANTOPRAZOLE 40 MG INJ IV ×2 (05:13→17:58)
[2019-06-17] MEDS: ATENOLOL 25 MG TAB PO ×2 (09:00→21:00)
[2019-06-17] MEDS: CITRIC ACID/NA CITRATE 30 ML CUP PO ×2 (09:13→21:42)
[2019-06-17] MEDS: FOLIC ACID 1 MG TAB PO (09:13)
[2019-06-17] MEDS: ALLOPURINOL 100 MG TAB PO (09:14)
[2019-06-17] MEDS: MAGNESIUM OXIDE 400 MG TAB PO ×2 (09:14→21:42)
[2019-06-17] MEDS: MIDODRINE 5 MG TAB PO ×3 (09:14→17:59)
[2019-06-17] MEDS: NEUTRA-PHOS 250 MG PACKET PO (09:14)
[2019-06-17] MEDS: CHOLECALCIFEROL 2,000 UNIT CAP PO (09:14)
[2019-06-17] MEDS: PHENYLephrine 80 MG in DEXTROSE 5% 242 ML IV (11:29)
[2019-06-17 16:59] LABS: RETICULOCYTE COUNT # 0.053 X10^6 (0.020-0.110); RETICULOCYTE COUNT % 1.7 % (0.5-1.5)
[2019-06-17 16:59] LABS: RETICULOCYTE RBC 3.03
[2019-06-17 17:15] LABS: LACTATE DEHYDROGENASE 791 IU/L (313-618)
[2019-06-17] MEDS: CEFTRIAXONE 1 GM/50 ML (PMX) 50 ML IVPB (17:59)
[2019-06-17] MEDS: hydrOXYzine HCL 10 MG TAB PO (21:42)
[2019-06-18] MEDS: ALTEPLASE (CATHFLO) 2 MG INJ CATHETER ×2 (05:31)
[2019-06-18] MEDS: PANTOPRAZOLE 40 MG INJ IV ×2 (05:39→17:38)
[2019-06-18 09:06] LABS: ADD MAN DIFF? NO
[2019-06-18 09:37] LABS: ALANINE AMINOTRANSFERASE 34 IU/L (13-69); ALBUMIN 2.6 g/dl (3.3-4.9); ALBUMIN/GLOBULIN RATIO 0.86; ALKALINE PHOSPHATASE 89 IU/L (42-121); ANION GAP 6 (5-13); ASPARTATE AMINO TRANSFERASE 24 IU/L (15-46); BILIRUBIN,INDIRECT 0.2 mg/dl (0-1.1); BILIRUBIN,TOTAL 0.2 mg/dl (0.2-1.3); BLOOD UREA NITROGEN 27 mg/dl (7-20); CALCIUM 8.3 mg/dl (8.4-10.2); CARBON DIOXIDE 28 mmol/L (21-31); CHLORIDE 101 mmol/L (97-110); CREATININE 1.28 mg/dl (0.44-1.00); Estimated GFR 46 mL/min (>60); GLUCOSE 111 mg/dl (70-220); POTASSIUM 3.8 mmol/L (3.5-5.1); SODIUM 135 mmol/L (135-144); TOTAL PROTEIN 5.6 g/dl (6.1-8.1)
[2019-06-18 09:42] LABS: IRON < 10 ug/dl (35-150)
[2019-06-18 09:46] LABS: TOTAL IRON BINDING CAPACITY 199 ug/dl (241-421)
[2019-06-18] MEDS: ALLOPURINOL 100 MG TAB PO (09:49)
[2019-06-18] MEDS: CHOLECALCIFEROL 2,000 UNIT CAP PO (09:49)
[2019-06-18] MEDS: MAGNESIUM OXIDE 400 MG TAB PO ×2 (09:49→20:22)
[2019-06-18] MEDS: FOLIC ACID 1 MG TAB PO (09:49)
[2019-06-18] MEDS: ATENOLOL 25 MG TAB PO ×2 (09:50→20:22)
[2019-06-18] MEDS: MIDODRINE 5 MG TAB PO ×3 (09:50→17:38)
[2019-06-18] MEDS: CITRIC ACID/NA CITRATE 30 ML CUP PO ×2 (09:50→20:22)
[2019-06-18 10:15] LABS: THYROID STIMULATING HORMONE 0.075 MIU/L (0.465-4.680)
[2019-06-18 10:18] LABS: ABNORMAL IP MESSAGE 1; BASOPHILS % 0.2 % (0.0-2.0); EOSINOPHILS # 0.2 10^3/ul (0.0-0.5); EOSINOPHILS % 1.7 % (0.0-7.0); HEMATOCRIT 24.7 % (37.0-47.0); HEMOGLOBIN 7.8 g/dl (12.0-16.0); LYMPHOCYTES # 0.4 10^3/ul (0.8-2.9); MEAN CORPUSCULAR HEMOGLOBIN 27.1 pg (29.0-33.0); MEAN CORPUSCULAR HGB CONC 31.6 g/dl (32.0-37.0); MEAN CORPUSCULAR VOLUME 85.8 fl (82.0-101.0); MEAN PLATELET VOLUME 11.1 fl (7.4-10.4); MONOCYTES % 8.3 % (0.0-11.0); NEUTROPHIL # 10.5 10^3/ul (1.6-7.5); NEUTROPHILS % 85.9 % (39.0-77.0); PLATELET COUNT 257 10^3/UL (140-415); RED BLOOD COUNT 2.88 10^6/ul (4.20-5.40); RED CELL DISTRIBUTION WIDTH 14.9 % (11.5-14.5)
[2019-06-18 10:18] LABS: WHITE BLOOD COUNT 12.2 10^3/ul (4.8-10.8)
[2019-06-18 10:34] LABS: POSITIVE DIFF @See below
[2019-06-18 10:52] LABS: FOLATE > 20.0 ng/ml (2.8-20.0)
[2019-06-18 11:32] LABS: ADD UMIC YES; UR ASCORBIC ACID NEGATIVE (NEGATIVE); UR BILIRUBIN (Dip) NEGATIVE (NEGATIVE); UR BLOOD (Dip) 2+ mg/dL (NEGATIVE); UR CLARITY CLEAR (CLEAR); UR COLOR YELLOW (YELLOW); UR GLUCOSE (Dip) NEGATIVE (NEGATIVE); UR KETONES (Dip) NEGATIVE (NEGATIVE); UR LEUKOCYTE ESTERASE (Dip) NEGATIVE Leu/ul (NEGATIVE); UR NITRITE (Dip) NEGATIVE (NEGATIVE); UR RBC 7 /HPF (0-5); UR SPECIFIC GRAVITY (Dip) 1.015 (1.003-1.030); UR TOTAL PROTEIN (Dip) NEGATIVE (NEGATIVE); UR UROBILINOGEN (Dip) NEGATIVE (NEGATIVE); UR WBC 1 /HPF (0-5)
[2019-06-18] MEDS: CEFTRIAXONE 1 GM/50 ML (PMX) 50 ML IVPB (17:39)
[2019-06-18] MEDS: hydrOXYzine HCL 10 MG TAB PO (20:22)
[2019-06-19 04:46] LABS: ADD MAN DIFF? NO
[2019-06-19 04:57] LABS: ABNORMAL IP MESSAGE 1; BASOPHILS % 0.2 % (0.0-2.0); EOSINOPHILS # 0.4 10^3/ul (0.0-0.5); HEMATOCRIT 19.2 % (37.0-47.0); LYMPHOCYTES # 0.6 10^3/ul (0.8-2.9); LYMPHOCYTES % 4.7 % (15.0-51.0); MEAN CORPUSCULAR HGB CONC 31.3 g/dl (32.0-37.0); MEAN CORPUSCULAR VOLUME 86.5 fl (82.0-101.0); MEAN PLATELET VOLUME 10.4 fl (7.4-10.4); MONOCYTE # 1.3 10^3/ul (0.3-0.9); MONOCYTES % 10.4 % (0.0-11.0); NEUTROPHIL # 9.9 10^3/ul (1.6-7.5); NEUTROPHILS % 80.7 % (39.0-77.0); PLATELET COUNT 334 10^3/UL (140-415); RED BLOOD COUNT 2.22 10^6/ul (4.20-5.40); RED CELL DISTRIBUTION WIDTH 15.1 % (11.5-14.5)
[2019-06-19 04:57] LABS: WHITE BLOOD COUNT 12.3 10^3/ul (4.8-10.8)
[2019-06-19 05:10] LABS: ALANINE AMINOTRANSFERASE 28 IU/L (13-69); ALBUMIN 2.5 g/dl (3.3-4.9); ALBUMIN/GLOBULIN RATIO 0.78; ALKALINE PHOSPHATASE 78 IU/L (42-121); ANION GAP 7 (5-13); ASPARTATE AMINO TRANSFERASE 23 IU/L (15-46); BILIRUBIN,INDIRECT 0.2 mg/dl (0-1.1); BILIRUBIN,TOTAL 0.2 mg/dl (0.2-1.3); BLOOD UREA NITROGEN 21 mg/dl (7-20); CALCIUM 8.4 mg/dl (8.4-10.2); CARBON DIOXIDE 33 mmol/L (21-31); CHLORIDE 95 mmol/L (97-110); CREATININE 1.07 mg/dl (0.44-1.00); Estimated GFR 56 mL/min (>60); GLUCOSE 110 mg/dl (70-220); SODIUM 135 mmol/L (135-144); TOTAL PROTEIN 5.7 g/dl (6.1-8.1)
[2019-06-19 05:20] LABS: MAGNESIUM 1.4 mg/dl (1.7-2.5)
[2019-06-19 05:20] LABS: POSITIVE DIFF @See below
[2019-06-19 05:21] LABS: PATH REVIEW? YES
[2019-06-19 05:29] LABS: INR 0.98; PARTIAL THROMBOPLASTIN TIME 32.8 Sec (23.0-35.0); PROTIME 13.1 Sec (11.9-14.9)
[2019-06-19] MEDS: PANTOPRAZOLE 40 MG INJ IV ×2 (06:04→17:50)
[2019-06-19] MEDS: PHENYLephrine 80 MG in DEXTROSE 5% 242 ML IV (06:06)
[2019-06-19 06:14] LABS: HEMATOCRIT 25.2 % (37.0-47.0); HEMOGLOBIN 7.8 g/dl (12.0-16.0)
[2019-06-19] MEDS: CITRIC ACID/NA CITRATE 30 ML CUP PO ×2 (09:32→21:15)
[2019-06-19] MEDS: MIDODRINE 5 MG TAB PO ×3 (09:34→17:50)
[2019-06-19] MEDS: FOLIC ACID 1 MG TAB PO (09:36)
[2019-06-19] MEDS: CHOLECALCIFEROL 2,000 UNIT CAP PO (09:36)
[2019-06-19] MEDS: ALLOPURINOL 100 MG TAB PO (09:36)
[2019-06-19] MEDS: ATENOLOL 25 MG TAB PO (09:36)
[2019-06-19] MEDS: MAGNESIUM OXIDE 400 MG TAB PO ×2 (09:36→21:15)
[2019-06-19 12:37] LABS: PROTEIN, TOTAL 5.2 g/dL (6.1-8.1)
[2019-06-19 13:18] LABS: BAND NEUTROPHILS #M 0.6 10^3/ul (0.0-0.6); BAND NEUTROPHILS % (M) 5 % (0-4); BASOPHIL #M 0.1 10^3/ul (0.0-0.0); BASOPHILS % (M) 1 % (0-2); BURR CELLS 1+ (0-0); EOSINOPHILS % (M) 2 % (0-7); GIANT THROMBO% (M) 3 % (0-0); LYMPHOCYTES #M 0.1 10^3/ul (0.8-2.9); LYMPHOCYTES % (M) 1 % (15-51); MONOCYTE #M 0.2 10^3/ul (0.3-0.9); MONOCYTES % (M) 2 % (0-11); MYELOCYTES #M 0.1 10^3/ul (0.0-0.0); MYELOCYTES % (M) 1 % (0-0); OVALOCYTES 1+ (0-0); PLATELET ESTIMATE NORMAL; POIKILOCYTOSIS 2+ (0-0); POLYCHROMASIA 3+ (0-0); SEG NEUT #M 10.9 10^3/ul (1.6-7.5); SEGMENTED NEUTROPHILS (M) % 88 % (39-77); SMUDGE%M 10 % (0-0)
[2019-06-19] MEDS: MAGNESIUM SULFATE 2 GM/50 ML 50 ML IVPB (14:36)
[2019-06-19] MEDS: morphine 2 MG INJ IV (14:45)
[2019-06-19] MEDS: POTASSIUM CHLORIDE 100 ML IVPB ×2 (15:59→17:49)
[2019-06-19] MEDS: CEFTRIAXONE 1 GM/50 ML (PMX) 50 ML IVPB (17:50)
[2019-06-19] MEDS: hydrOXYzine HCL 10 MG TAB PO (21:15)
[2019-06-20] MEDS: morphine 2 MG INJ IV ×2 (00:49→23:43)
[2019-06-20] MEDS: PANTOPRAZOLE 40 MG INJ IV ×2 (06:20→18:26)
[2019-06-20] MEDS: 1/2 NS + KCL 20 MEQ 1,000 ML IV ×3 (06:21→23:42)
[2019-06-20] MEDS: MAGNESIUM OXIDE 400 MG TAB PO ×2 (09:25→23:41)
[2019-06-20] MEDS: CITRIC ACID/NA CITRATE 30 ML CUP PO ×2 (09:25→21:00)
[2019-06-20] MEDS: FOLIC ACID 1 MG TAB PO (09:25)
[2019-06-20] MEDS: CHOLECALCIFEROL 2,000 UNIT CAP PO (09:25)
[2019-06-20] MEDS: ALLOPURINOL 100 MG TAB PO (09:25)
[2019-06-20] MEDS: MIDODRINE 5 MG TAB PO ×3 (09:26→15:52)
[2019-06-20 10:07] LABS: HAPTOGLOBIN 237 mg/dL (43-212)
[2019-06-20 18:01] LABS: ALBUMIN 2.2 g/dL (3.8-4.8); ALPHA-1-GLOBULINS 0.7 g/dL (0.2-0.3); ALPHA-2-GLOBULINS 0.9 g/dL (0.5-0.9); BETA 2 GLOBULINS 0.4 g/dL (0.2-0.5); BETA GLOBULINS 0.4 g/dL (0.4-0.6); GAMMA GLOBULINS 0.7 g/dL (0.8-1.7)
[2019-06-20] MEDS: CEFTRIAXONE 1 GM/50 ML (PMX) 50 ML IVPB (18:26)
[2019-06-20] MEDS: hydrOXYzine HCL 10 MG TAB PO (23:41)
[2019-06-21] MEDS: TRIAMCINOLONE ACET 0.5% 15 GM CR TOP (03:18)
[2019-06-21] MEDS: HYDROCORTISONE 1% 28 GM CR TOP (03:22)
[2019-06-21 04:52] LABS: ADD MAN DIFF? NO
[2019-06-21 05:07] LABS: WHITE BLOOD COUNT 7.1 10^3/ul (4.8-10.8)
[2019-06-21 05:07] LABS: ABNORMAL IP MESSAGE 1; BASOPHILS % 0.1 % (0.0-2.0); EOSINOPHILS # 0.4 10^3/ul (0.0-0.5); EOSINOPHILS % 5.2 % (0.0-7.0); HEMATOCRIT 22.9 % (37.0-47.0); LYMPHOCYTES # 0.3 10^3/ul (0.8-2.9); LYMPHOCYTES % 4.2 % (15.0-51.0); MEAN CORPUSCULAR HEMOGLOBIN 26.8 pg (29.0-33.0); MEAN CORPUSCULAR HGB CONC 30.1 g/dl (32.0-37.0); MEAN CORPUSCULAR VOLUME 89.1 fl (82.0-101.0); MEAN PLATELET VOLUME 10.3 fl (7.4-10.4); MONOCYTE # 0.6 10^3/ul (0.3-0.9); MONOCYTES % 8.6 % (0.0-11.0); NEUTROPHIL # 5.7 10^3/ul (1.6-7.5); NEUTROPHILS % 81.2 % (39.0-77.0); PLATELET COUNT 302 10^3/UL (140-415); RED BLOOD COUNT 2.57 10^6/ul (4.20-5.40); RED CELL DISTRIBUTION WIDTH 15.3 % (11.5-14.5)
[2019-06-21] MEDS: PANTOPRAZOLE 40 MG INJ IV (05:20)
[2019-06-21 05:22] LABS: INR 0.94; PROTIME 12.7 Sec (11.9-14.9)
[2019-06-21 05:23] LABS: PARTIAL THROMBOPLASTIN TIME 31.4 Sec (23.0-35.0)
[2019-06-21 05:28] LABS: MAGNESIUM 1.1 mg/dl (1.7-2.5)
[2019-06-21 05:28] LABS: PHOSPHORUS 1.1 mg/dl (2.5-4.9)
[2019-06-21 05:33] LABS: ANION GAP 4 (5-13); BLOOD UREA NITROGEN 18 mg/dl (7-20); CALCIUM 7.4 mg/dl (8.4-10.2); CARBON DIOXIDE 28 mmol/L (21-31); CHLORIDE 106 mmol/L (97-110); CREATININE 0.83 mg/dl (0.44-1.00); Estimated GFR > 60 mL/min (>60); GLUCOSE 107 mg/dl (70-220); POTASSIUM 4.7 mmol/L (3.5-5.1); SODIUM 138 mmol/L (135-144)
[2019-06-21 05:34] LABS: HEMOGLOBIN 6.9 g/dl (12.0-16.0); POSITIVE DIFF @See below
[2019-06-21 05:35] LABS: ALANINE AMINOTRANSFERASE 26 IU/L (13-69); ALBUMIN/GLOBULIN RATIO 0.85; ALKALINE PHOSPHATASE 67 IU/L (42-121); ANION GAP 5 (5-13); ASPARTATE AMINO TRANSFERASE 21 IU/L (15-46); BILIRUBIN,INDIRECT 0.1 mg/dl (0-1.1); BILIRUBIN,TOTAL 0.1 mg/dl (0.2-1.3); BLOOD UREA NITROGEN 18 mg/dl (7-20); CALCIUM 7.4 mg/dl (8.4-10.2); CARBON DIOXIDE 28 mmol/L (21-31); CHLORIDE 106 mmol/L (97-110); CREATININE 0.83 mg/dl (0.44-1.00); Estimated GFR > 60 mL/min (>60); GLUCOSE 107 mg/dl (70-220); POTASSIUM 4.7 mmol/L (3.5-5.1); SODIUM 139 mmol/L (135-144); TOTAL PROTEIN 5.2 g/dl (6.1-8.1)
[2019-06-21 05:47] LABS: ALBUMIN 2.4 g/dl (3.3-4.9)
[2019-06-21] MEDS: MAGNESIUM SULFATE 2 GM/50 ML 50 ML IVPB (06:39)
[2019-06-21] MEDS: MAGNESIUM OXIDE 400 MG TAB PO ×2 (08:53→20:18)
[2019-06-21] MEDS: FOLIC ACID 1 MG TAB PO (08:53)
[2019-06-21] MEDS: CHOLECALCIFEROL 2,000 UNIT CAP PO (08:53)
[2019-06-21] MEDS: MIDODRINE 5 MG TAB PO ×3 (09:00→17:00)
[2019-06-21] MEDS: CITRIC ACID/NA CITRATE 30 ML CUP PO ×2 (09:00→20:18)
[2019-06-21 09:24] LABS: IMMEDIATE SPIN CROSSMATCH 1 1
[2019-06-21] MEDS: PHENYLephrine 80 MG in DEXTROSE 5% 242 ML IV (10:00)
[2019-06-21] MEDS: 1/2 NS + KCL 20 MEQ 1,000 ML IV (11:40)
[2019-06-21] MEDS: ALBUMIN HUMAN 25% 100 ML IV ×2 (12:59→20:18)
[2019-06-21] MEDS: CYANOCOBALAMIN 1000 MCG INJ IM (13:35)
[2019-06-21] MEDS: SOD FERRIC GLUC COMPLX 125 MG in SOD CHLORIDE 0.9% 100 ML IVPB (15:08)
[2019-06-21] MEDS: CEFTRIAXONE 1 GM/50 ML (PMX) 50 ML IVPB (17:30)
[2019-06-21] MEDS: hydrOXYzine HCL 10 MG TAB PO (20:19)
[2019-06-21 22:17] LABS: ERYTHROPOIETIN 7.4 mIU/mL (2.6-18.5)
[2019-06-21] MEDS: ACETAMINOPHEN 500 MG TAB PO (23:01)
[2019-06-22] MEDS: 1/2 NS + KCL 20 MEQ 1,000 ML IV ×2 (00:19→13:16)
[2019-06-22] MEDS: HYDROCORTISONE 1% 28 GM CR TOP (02:27)
[2019-06-22] MEDS: ALBUMIN HUMAN 25% 100 ML IV ×3 (03:58→22:11)
[2019-06-22 05:14] LABS: ADD MAN DIFF? NO
[2019-06-22 05:19] LABS: ABNORMAL IP MESSAGE 1; BASOPHILS % 0.2 % (0.0-2.0); EOSINOPHILS # 0.4 10^3/ul (0.0-0.5); EOSINOPHILS % 4.6 % (0.0-7.0); HEMATOCRIT 28.4 % (37.0-47.0); HEMOGLOBIN 9.1 g/dl (12.0-16.0); LYMPHOCYTES # 0.3 10^3/ul (0.8-2.9); LYMPHOCYTES % 3.8 % (15.0-51.0); MEAN CORPUSCULAR HEMOGLOBIN 27.7 pg (29.0-33.0); MEAN CORPUSCULAR VOLUME 86.3 fl (82.0-101.0); MEAN PLATELET VOLUME 9.9 fl (7.4-10.4); MONOCYTE # 0.5 10^3/ul (0.3-0.9); MONOCYTES % 5.8 % (0.0-11.0); NEUTROPHIL # 7.3 10^3/ul (1.6-7.5); NEUTROPHILS % 84.2 % (39.0-77.0); PLATELET COUNT 316 10^3/UL (140-415); RED BLOOD COUNT 3.29 10^6/ul (4.20-5.40); RED CELL DISTRIBUTION WIDTH 15.9 % (11.5-14.5)
[2019-06-22 05:19] LABS: WHITE BLOOD COUNT 8.7 10^3/ul (4.8-10.8)
[2019-06-22 05:24] LABS: POSITIVE DIFF @See below
[2019-06-22] MEDS: PANTOPRAZOLE (EC) 40 MG TAB PO (05:39)
[2019-06-22 05:40] LABS: ANION GAP 4 (5-13); BLOOD UREA NITROGEN 17 mg/dl (7-20); CALCIUM 8.4 mg/dl (8.4-10.2); CARBON DIOXIDE 29 mmol/L (21-31); CHLORIDE 106 mmol/L (97-110); CREATININE 0.71 mg/dl (0.44-1.00); Estimated GFR > 60 mL/min (>60); GLUCOSE 64 mg/dl (70-220); MAGNESIUM 1.5 mg/dl (1.7-2.5); PHOSPHORUS 0.5 mg/dl (2.5-4.9); POTASSIUM 3.4 mmol/L (3.5-5.1); SODIUM 139 mmol/L (135-144)
[2019-06-22] MEDS: CITRIC ACID/NA CITRATE 30 ML CUP PO (08:39)
[2019-06-22] MEDS: CHOLECALCIFEROL 2,000 UNIT CAP PO (08:39)
[2019-06-22] MEDS: FOLIC ACID 1 MG TAB PO (08:39)
[2019-06-22] MEDS: MAGNESIUM OXIDE 400 MG TAB PO ×2 (08:39→22:08)
[2019-06-22] MEDS: MIDODRINE 5 MG TAB PO ×7 (08:43→17:23)
[2019-06-22] MEDS: SOD FERRIC GLUC COMPLX 125 MG in SOD CHLORIDE 0.9% 100 ML IVPB (15:13)
[2019-06-22] MEDS ORDERED: HYDROCODONE/APAP (5/325) TAB PO (15:30)
[2019-06-22] MEDS: CEFTRIAXONE 1 GM/50 ML (PMX) 50 ML IVPB (17:23)
[2019-06-22] MEDS: hydrOXYzine HCL 10 MG TAB PO (22:09)
[2019-06-23] MEDS: 1/2 NS + KCL 20 MEQ 1,000 ML IV ×2 (02:00→09:09)
[2019-06-23] MEDS: PANTOPRAZOLE (EC) 40 MG TAB PO (05:26)
[2019-06-23] MEDS: ALBUMIN HUMAN 25% 100 ML IV (05:26)
[2019-06-23] MEDS: FOLIC ACID 1 MG TAB PO (08:51)
[2019-06-23] MEDS: MAGNESIUM OXIDE 400 MG TAB PO ×2 (08:51→21:45)
[2019-06-23] MEDS: CHOLECALCIFEROL 2,000 UNIT CAP PO (08:51)
[2019-06-23] MEDS: MIDODRINE 5 MG TAB PO ×3 (08:52→16:33)
[2019-06-23] MEDS: CITRIC ACID/NA CITRATE 30 ML CUP PO (09:07)
[2019-06-23 12:05] LABS: ADD MAN DIFF? NO
[2019-06-23 12:10] LABS: ABNORMAL IP MESSAGE 1; BASOPHILS % 0.4 % (0.0-2.0); EOSINOPHILS # 0.4 10^3/ul (0.0-0.5); EOSINOPHILS % 3.9 % (0.0-7.0); HEMATOCRIT 29.5 % (37.0-47.0); HEMOGLOBIN 9.2 g/dl (12.0-16.0); LYMPHOCYTES # 0.4 10^3/ul (0.8-2.9); LYMPHOCYTES % 4.3 % (15.0-51.0); MEAN CORPUSCULAR HEMOGLOBIN 27.7 pg (29.0-33.0); MEAN CORPUSCULAR HGB CONC 31.2 g/dl (32.0-37.0); MEAN CORPUSCULAR VOLUME 88.9 fl (82.0-101.0); MEAN PLATELET VOLUME 9.6 fl (7.4-10.4); MONOCYTE # 0.7 10^3/ul (0.3-0.9); MONOCYTES % 6.6 % (0.0-11.0); NEUTROPHIL # 8.5 10^3/ul (1.6-7.5); NEUTROPHILS % 83.5 % (39.0-77.0); PLATELET COUNT 410 10^3/UL (140-415); RED BLOOD COUNT 3.32 10^6/ul (4.20-5.40); RED CELL DISTRIBUTION WIDTH 16.8 % (11.5-14.5)
[2019-06-23 12:10] LABS: WHITE BLOOD COUNT 10.2 10^3/ul (4.8-10.8)
[2019-06-23 12:11] LABS: POSITIVE DIFF @See below
[2019-06-23] MEDS: SOD FERRIC GLUC COMPLX 125 MG in SOD CHLORIDE 0.9% 100 ML IVPB (13:12)
[2019-06-23] MEDS: ALTEPLASE (CATHFLO) 2 MG INJ CATHETER (15:48)
[2019-06-23] MEDS: ACETAMINOPHEN 500 MG TAB PO (16:33)
[2019-06-23] MEDS: CEFTRIAXONE 1 GM/50 ML (PMX) 50 ML IVPB (18:17)
[2019-06-23] MEDS: hydrOXYzine HCL 10 MG TAB PO (21:45)
[2019-06-24] MEDS: HYDROCORTISONE 1% 28 GM CR TOP (03:25)
[2019-06-24] MEDS: PANTOPRAZOLE (EC) 40 MG TAB PO (05:46)
[2019-06-24] MEDS: ACETAMINOPHEN 500 MG TAB PO (05:46)
[2019-06-24] MEDS: 1/2 NS + KCL 20 MEQ 1,000 ML IV ×3 (05:47→21:55)
[2019-06-24 06:21] LABS: ADD MAN DIFF? NO
[2019-06-24 06:24] LABS: ABNORMAL IP MESSAGE 1; BASOPHILS % 0.2 % (0.0-2.0); EOSINOPHILS # 0.5 10^3/ul (0.0-0.5); EOSINOPHILS % 3.3 % (0.0-7.0); HEMATOCRIT 30.4 % (37.0-47.0); HEMOGLOBIN 9.5 g/dl (12.0-16.0); LYMPHOCYTES # 0.4 10^3/ul (0.8-2.9); LYMPHOCYTES % 3.1 % (15.0-51.0); MEAN CORPUSCULAR HEMOGLOBIN 27.6 pg (29.0-33.0); MEAN CORPUSCULAR HGB CONC 31.3 g/dl (32.0-37.0); MEAN CORPUSCULAR VOLUME 88.4 fl (82.0-101.0); MEAN PLATELET VOLUME 9.7 fl (7.4-10.4); MONOCYTE # 0.6 10^3/ul (0.3-0.9); MONOCYTES % 4.6 % (0.0-11.0); NEUTROPHIL # 11.8 10^3/ul (1.6-7.5); NEUTROPHILS % 87.5 % (39.0-77.0); PLATELET COUNT 473 10^3/UL (140-415); RED BLOOD COUNT 3.44 10^6/ul (4.20-5.40)
[2019-06-24 06:24] LABS: WHITE BLOOD COUNT 13.5 10^3/ul (4.8-10.8)
[2019-06-24 06:42] LABS: POSITIVE DIFF @See below
[2019-06-24 07:04] LABS: ANION GAP 8 (5-13); BLOOD UREA NITROGEN 14 mg/dl (7-20); CALCIUM 9.2 mg/dl (8.4-10.2); CARBON DIOXIDE 28 mmol/L (21-31); CHLORIDE 103 mmol/L (97-110); CREATININE 0.68 mg/dl (0.44-1.00); Estimated GFR > 60 mL/min (>60); GLUCOSE 110 mg/dl (70-220); SODIUM 139 mmol/L (135-144)
[2019-06-24] MEDS: MAGNESIUM OXIDE 400 MG TAB PO ×2 (10:12→21:51)
[2019-06-24] MEDS: FOLIC ACID 1 MG TAB PO (10:12)
[2019-06-24] MEDS: MIDODRINE 5 MG TAB PO ×3 (10:13→21:50)
[2019-06-24] MEDS: CHOLECALCIFEROL 2,000 UNIT CAP PO (10:13)
[2019-06-24] MEDS: CITRIC ACID/NA CITRATE 30 ML CUP PO (10:13)
[2019-06-24] MEDS: SOD FERRIC GLUC COMPLX 125 MG in SOD CHLORIDE 0.9% 100 ML IVPB (13:20)
[2019-06-24] MEDS: CEFTRIAXONE 1 GM/50 ML (PMX) 50 ML IVPB (18:44)
[2019-06-24] MEDS: hydrOXYzine HCL 10 MG TAB PO (21:50)
[2019-06-25] MEDS: ACETAMINOPHEN 500 MG TAB PO (03:37)
[2019-06-25] MEDS: 1/2 NS + KCL 20 MEQ 1,000 ML IV ×2 (04:00→12:31)
[2019-06-25] MEDS: PANTOPRAZOLE (EC) 40 MG TAB PO (06:02)
[2019-06-25] MEDS: CITRIC ACID/NA CITRATE 30 ML CUP PO (08:10)
[2019-06-25] MEDS: CHOLECALCIFEROL 2,000 UNIT CAP PO (08:14)
[2019-06-25] MEDS: FOLIC ACID 1 MG TAB PO (08:14)
[2019-06-25] MEDS: MAGNESIUM OXIDE 400 MG TAB PO ×2 (08:14→21:10)
[2019-06-25] MEDS: MIDODRINE 5 MG TAB PO ×3 (08:16→17:01)
[2019-06-25] MEDS: CEFEPIME 1GM/50 ML (PMX) 50 ML IVPB ×2 (12:21→21:10)
[2019-06-25] MEDS: ZYVOX 600 MG TAB PO ×2 (12:24→21:10)
[2019-06-25] MEDS: SOD FERRIC GLUC COMPLX 125 MG in SOD CHLORIDE 0.9% 100 ML IVPB (12:31)
[2019-06-25] MEDS: hydrOXYzine HCL 10 MG TAB PO (21:10)
[2019-06-26] MEDS: ALTEPLASE (CATHFLO) 2 MG INJ CATHETER (01:34)
[2019-06-26] MEDS: HEPARIN (100 UNITS/ML) 5 ML SYG CATHETER (02:44)
[2019-06-26] MEDS: 1/2 NS + KCL 20 MEQ 1,000 ML IV ×3 (02:47→20:49)
[2019-06-26] MEDS: PANTOPRAZOLE (EC) 40 MG TAB PO (05:39)
[2019-06-26] MEDS: ZYVOX 600 MG TAB PO ×2 (08:03→20:42)
[2019-06-26] MEDS: CITRIC ACID/NA CITRATE 30 ML CUP PO (08:03)
[2019-06-26] MEDS: FOLIC ACID 1 MG TAB PO (08:03)
[2019-06-26] MEDS: CEFEPIME 1GM/50 ML (PMX) 50 ML IVPB ×2 (08:03→20:43)
[2019-06-26] MEDS: MAGNESIUM OXIDE 400 MG TAB PO ×2 (08:03→20:43)
[2019-06-26] MEDS: CHOLECALCIFEROL 2,000 UNIT CAP PO (08:03)
[2019-06-26] MEDS: MIDODRINE 5 MG TAB PO ×3 (09:00→16:22)
[2019-06-26] MEDS: hydrOXYzine HCL 10 MG TAB PO (20:44)
[2019-06-27] MEDS: PANTOPRAZOLE (EC) 40 MG TAB PO (05:12)
[2019-06-27 06:35] LABS: ADD MAN DIFF? NO
[2019-06-27 06:40] LABS: WHITE BLOOD COUNT 5.7 10^3/ul (4.8-10.8)
[2019-06-27 06:40] LABS: ABNORMAL IP MESSAGE 1; BASOPHILS % 0.7 % (0.0-2.0); EOSINOPHILS # 0.6 10^3/ul (0.0-0.5); HEMATOCRIT 30.8 % (37.0-47.0); HEMOGLOBIN 9.6 g/dl (12.0-16.0); LYMPHOCYTES # 0.4 10^3/ul (0.8-2.9); LYMPHOCYTES % 7.2 % (15.0-51.0); MEAN CORPUSCULAR HEMOGLOBIN 27.7 pg (29.0-33.0); MEAN CORPUSCULAR HGB CONC 31.2 g/dl (32.0-37.0); MEAN CORPUSCULAR VOLUME 88.8 fl (82.0-101.0); MEAN PLATELET VOLUME 9.5 fl (7.4-10.4); MONOCYTE # 0.4 10^3/ul (0.3-0.9); MONOCYTES % 7.4 % (0.0-11.0); NEUTROPHIL # 4.1 10^3/ul (1.6-7.5); NEUTROPHILS % 71.5 % (39.0-77.0); PLATELET COUNT 475 10^3/UL (140-415); RED BLOOD COUNT 3.47 10^6/ul (4.20-5.40); RED CELL DISTRIBUTION WIDTH 18.2 % (11.5-14.5)
[2019-06-27 06:49] LABS: POSITIVE DIFF @See below
[2019-06-27 07:31] LABS: ANION GAP 8 (5-13); BLOOD UREA NITROGEN 10 mg/dl (7-20); CALCIUM 8.9 mg/dl (8.4-10.2); CARBON DIOXIDE 25 mmol/L (21-31); CHLORIDE 107 mmol/L (97-110); CREATININE 0.75 mg/dl (0.44-1.00); Estimated GFR > 60 mL/min (>60); GLUCOSE 122 mg/dl (70-220); POTASSIUM 3.9 mmol/L (3.5-5.1); SODIUM 140 mmol/L (135-144)
[2019-06-27] MEDS: CHOLECALCIFEROL 2,000 UNIT CAP PO (10:49)
[2019-06-27] MEDS: CITRIC ACID/NA CITRATE 30 ML CUP PO (10:49)
[2019-06-27] MEDS: ZYVOX 600 MG TAB PO ×2 (10:49→20:49)
[2019-06-27] MEDS: MAGNESIUM OXIDE 400 MG TAB PO ×2 (10:49→20:49)
[2019-06-27] MEDS: CEFEPIME 1GM/50 ML (PMX) 50 ML IVPB ×2 (10:49→20:49)
[2019-06-27] MEDS: FOLIC ACID 1 MG TAB PO (10:49)
[2019-06-27] MEDS: hydrOXYzine HCL 10 MG TAB PO (20:52)
[2019-06-28 06:07] LABS: ADD MAN DIFF? NO
[2019-06-28 06:12] LABS: ABNORMAL IP MESSAGE 1; BASOPHILS % 0.5 % (0.0-2.0); EOSINOPHILS # 0.7 10^3/ul (0.0-0.5); EOSINOPHILS % 9.2 % (0.0-7.0); HEMATOCRIT 31.4 % (37.0-47.0); LYMPHOCYTES # 0.5 10^3/ul (0.8-2.9); MEAN CORPUSCULAR HEMOGLOBIN 28.6 pg (29.0-33.0); MEAN CORPUSCULAR HGB CONC 31.8 g/dl (32.0-37.0); MEAN CORPUSCULAR VOLUME 89.7 fl (82.0-101.0); MEAN PLATELET VOLUME 9.3 fl (7.4-10.4); MONOCYTE # 0.4 10^3/ul (0.3-0.9); MONOCYTES % 5.5 % (0.0-11.0); NEUTROPHIL # 6.1 10^3/ul (1.6-7.5); NEUTROPHILS % 76.9 % (39.0-77.0); PLATELET COUNT 499 10^3/UL (140-415); RED CELL DISTRIBUTION WIDTH 18.4 % (11.5-14.5)
[2019-06-28] MEDS: PANTOPRAZOLE (EC) 40 MG TAB PO (06:20)
[2019-06-28 06:22] LABS: POSITIVE DIFF @See below
[2019-06-28 06:27] LABS: ANION GAP 6 (5-13); BLOOD UREA NITROGEN 12 mg/dl (7-20); CALCIUM 8.6 mg/dl (8.4-10.2); CARBON DIOXIDE 28 mmol/L (21-31); CHLORIDE 105 mmol/L (97-110); CREATININE 0.72 mg/dl (0.44-1.00); Estimated GFR > 60 mL/min (>60); GLUCOSE 93 mg/dl (70-220); POTASSIUM 3.6 mmol/L (3.5-5.1); SODIUM 139 mmol/L (135-144)
[2019-06-28] MEDS: FOLIC ACID 1 MG TAB PO (09:44)
[2019-06-28] MEDS: MAGNESIUM OXIDE 400 MG TAB PO ×2 (09:44→20:55)
[2019-06-28] MEDS: ZYVOX 600 MG TAB PO ×2 (09:44→20:55)
[2019-06-28] MEDS: CHOLECALCIFEROL 2,000 UNIT CAP PO (09:44)
[2019-06-28] MEDS: CEFEPIME 1GM/50 ML (PMX) 50 ML IVPB ×2 (09:44→20:56)
[2019-06-28] MEDS: FLUCONAZOLE 100 MG TAB PO (14:16)
[2019-06-28] MEDS: BETHANECHOL 10 MG TAB PO (20:55)
[2019-06-28] MEDS: hydrOXYzine HCL 10 MG TAB PO (20:56)
[2019-06-29] MEDS ORDERED: ALTEPLASE (CATHFLO) 2 MG INJ CATHETER (06:00)
[2019-06-29] MEDS: PANTOPRAZOLE (EC) 40 MG TAB PO (06:19)
[2019-06-29 07:18] LABS: ANION GAP 8 (5-13); BLOOD UREA NITROGEN 11 mg/dl (7-20); CARBON DIOXIDE 27 mmol/L (21-31); CHLORIDE 106 mmol/L (97-110); CREATININE 0.76 mg/dl (0.44-1.00); Estimated GFR > 60 mL/min (>60); GLUCOSE 142 mg/dl (70-220); POTASSIUM 3.5 mmol/L (3.5-5.1); SODIUM 141 mmol/L (135-144)
[2019-06-29] MEDS: BETHANECHOL 10 MG TAB PO ×3 (08:31→20:46)
[2019-06-29] MEDS: FOLIC ACID 1 MG TAB PO (08:31)
[2019-06-29] MEDS: ZYVOX 600 MG TAB PO ×2 (08:31→20:46)
[2019-06-29] MEDS: MAGNESIUM OXIDE 400 MG TAB PO ×2 (08:31→20:46)
[2019-06-29] MEDS: FLUCONAZOLE 100 MG TAB PO (08:31)
[2019-06-29] MEDS: CEFEPIME 1GM/50 ML (PMX) 50 ML IVPB ×2 (08:31→20:47)
[2019-06-29] MEDS: CHOLECALCIFEROL 2,000 UNIT CAP PO (08:31)
[2019-06-29] MEDS: ALTEPLASE (CATHFLO) 2 MG INJ CATHETER (11:39)
[2019-06-29] MEDS: hydrOXYzine HCL 10 MG TAB PO (20:51)
[2019-06-30] MEDS: PANTOPRAZOLE (EC) 40 MG TAB PO (05:53)
[2019-06-30 06:43] LABS: ADD MAN DIFF? NO
[2019-06-30 06:56] LABS: ABNORMAL IP MESSAGE 1; BASOPHIL # 0.1 10^3/ul (0.0-0.1); BASOPHILS % 1.1 % (0.0-2.0); EOSINOPHILS # 0.7 10^3/ul (0.0-0.5); EOSINOPHILS % 9.7 % (0.0-7.0); HEMATOCRIT 31.8 % (37.0-47.0); HEMOGLOBIN 9.9 g/dl (12.0-16.0); LYMPHOCYTES # 0.5 10^3/ul (0.8-2.9); LYMPHOCYTES % 7.1 % (15.0-51.0); MEAN CORPUSCULAR HGB CONC 31.1 g/dl (32.0-37.0); MEAN CORPUSCULAR VOLUME 90.1 fl (82.0-101.0); MEAN PLATELET VOLUME 9.1 fl (7.4-10.4); MONOCYTE # 0.4 10^3/ul (0.3-0.9); NEUTROPHIL # 5.4 10^3/ul (1.6-7.5); NEUTROPHILS % 75.7 % (39.0-77.0); PLATELET COUNT 433 10^3/UL (140-415); RED BLOOD COUNT 3.53 10^6/ul (4.20-5.40); RED CELL DISTRIBUTION WIDTH 19.6 % (11.5-14.5)
[2019-06-30 06:56] LABS: WHITE BLOOD COUNT 7.1 10^3/ul (4.8-10.8)
[2019-06-30 06:57] LABS: POSITIVE DIFF @See below
[2019-06-30 07:12] LABS: ANION GAP 7 (5-13); BLOOD UREA NITROGEN 18 mg/dl (7-20); CARBON DIOXIDE 26 mmol/L (21-31); CHLORIDE 105 mmol/L (97-110); CREATININE 0.74 mg/dl (0.44-1.00); Estimated GFR > 60 mL/min (>60); GLUCOSE 86 mg/dl (70-220); POTASSIUM 4.7 mmol/L (3.5-5.1); SODIUM 138 mmol/L (135-144)
[2019-06-30] MEDS: FOLIC ACID 1 MG TAB PO (08:45)
[2019-06-30] MEDS: CHOLECALCIFEROL 2,000 UNIT CAP PO (08:45)
[2019-06-30] MEDS: FLUCONAZOLE 100 MG TAB PO (08:45)
[2019-06-30] MEDS: BETHANECHOL 10 MG TAB PO ×2 (08:45→13:16)
[2019-06-30] MEDS: CEFEPIME 1GM/50 ML (PMX) 50 ML IVPB ×2 (08:45→21:38)
[2019-06-30] MEDS: ZYVOX 600 MG TAB PO ×2 (08:45→21:17)
[2019-06-30] MEDS: MAGNESIUM OXIDE 400 MG TAB PO ×2 (08:45→21:17)
[2019-06-30] MEDS: hydrOXYzine HCL 10 MG TAB PO (21:00)
[2019-06-30] MEDS: BETHANECHOL 25 MG TAB PO (21:17)
[2019-07-01] MEDS: PANTOPRAZOLE (EC) 40 MG TAB PO (05:39)
[2019-07-01] MEDS: CHOLECALCIFEROL 2,000 UNIT CAP PO (09:01)
[2019-07-01] MEDS: FLUCONAZOLE 100 MG TAB PO (09:01)
[2019-07-01] MEDS: FOLIC ACID 1 MG TAB PO (09:01)
[2019-07-01] MEDS: BETHANECHOL 25 MG TAB PO ×3 (09:01→20:44)
[2019-07-01] MEDS: ZYVOX 600 MG TAB PO ×2 (09:01→20:44)
[2019-07-01] MEDS: MAGNESIUM OXIDE 400 MG TAB PO ×2 (09:01→20:44)
[2019-07-01] MEDS: CEFEPIME 1GM/50 ML (PMX) 50 ML IVPB ×2 (09:03→20:45)
[2019-07-01] MEDS: hydrOXYzine HCL 10 MG TAB PO (20:44)
[2019-07-02] MEDS: PANTOPRAZOLE (EC) 40 MG TAB PO (05:22)
[2019-07-02] MEDS: BETHANECHOL 25 MG TAB PO ×3 (09:18→21:00)
[2019-07-02] MEDS: MAGNESIUM OXIDE 400 MG TAB PO ×2 (09:18→21:00)
[2019-07-02] MEDS: ZYVOX 600 MG TAB PO ×2 (09:18→21:00)
[2019-07-02] MEDS: FOLIC ACID 1 MG TAB PO (09:18)
[2019-07-02] MEDS: CHOLECALCIFEROL 2,000 UNIT CAP PO (09:18)
[2019-07-02] MEDS: CEFEPIME 1GM/50 ML (PMX) 50 ML IVPB ×2 (09:19→21:00)
[2019-07-02] MEDS: FLUCONAZOLE 100 MG TAB PO (09:19)
[2019-07-02] MEDS: hydrOXYzine HCL 10 MG TAB PO (21:00)
[2019-07-02] MEDS: ALTEPLASE (CATHFLO) 2 MG INJ CATHETER (21:08)
[2019-07-03] MEDS: PANTOPRAZOLE (EC) 40 MG TAB PO (05:22)
[2019-07-03 05:42] LABS: ADD MAN DIFF? NO
[2019-07-03 05:52] LABS: ABNORMAL IP MESSAGE 1; BASOPHIL # 0.1 10^3/ul (0.0-0.1); BASOPHILS % 0.9 % (0.0-2.0); EOSINOPHILS # 0.8 10^3/ul (0.0-0.5); EOSINOPHILS % 10.3 % (0.0-7.0); HEMATOCRIT 32.4 % (37.0-47.0); HEMOGLOBIN 10.1 g/dl (12.0-16.0); LYMPHOCYTES # 0.5 10^3/ul (0.8-2.9); LYMPHOCYTES % 6.9 % (15.0-51.0); MEAN CORPUSCULAR HGB CONC 31.2 g/dl (32.0-37.0); MEAN CORPUSCULAR VOLUME 93.1 fl (82.0-101.0); MEAN PLATELET VOLUME 9.3 fl (7.4-10.4); MONOCYTE # 0.3 10^3/ul (0.3-0.9); MONOCYTES % 4.3 % (0.0-11.0); NEUTROPHIL # 5.9 10^3/ul (1.6-7.5); NEUTROPHILS % 77.1 % (39.0-77.0); PLATELET COUNT 263 10^3/UL (140-415); RED BLOOD COUNT 3.48 10^6/ul (4.20-5.40); RED CELL DISTRIBUTION WIDTH 19.6 % (11.5-14.5)
[2019-07-03 05:52] LABS: WHITE BLOOD COUNT 7.7 10^3/ul (4.8-10.8)
[2019-07-03 05:55] LABS: POSITIVE DIFF @See below
[2019-07-03 06:20] LABS: ANION GAP 11 (5-13); BLOOD UREA NITROGEN 35 mg/dl (7-20); CALCIUM 9.9 mg/dl (8.4-10.2); CARBON DIOXIDE 22 mmol/L (21-31); CHLORIDE 106 mmol/L (97-110); CREATININE 0.96 mg/dl (0.44-1.00); Estimated GFR > 60 mL/min (>60); GLUCOSE 128 mg/dl (70-220); POTASSIUM 4.4 mmol/L (3.5-5.1); SODIUM 139 mmol/L (135-144)
[2019-07-03] MEDS: ZYVOX 600 MG TAB PO ×2 (09:11→22:11)
[2019-07-03] MEDS: FOLIC ACID 1 MG TAB PO (09:11)
[2019-07-03] MEDS: CEFEPIME 1GM/50 ML (PMX) 50 ML IVPB ×2 (09:11→22:10)
[2019-07-03] MEDS: MAGNESIUM OXIDE 400 MG TAB PO ×2 (09:11→22:11)
[2019-07-03] MEDS: CHOLECALCIFEROL 2,000 UNIT CAP PO (09:11)
[2019-07-03] MEDS: FLUCONAZOLE 100 MG TAB PO (09:11)
[2019-07-03] MEDS: BETHANECHOL 25 MG TAB PO ×3 (09:11→22:13)
[2019-07-03] MEDS: hydrOXYzine HCL 10 MG TAB PO (22:12)
[2019-07-04] MEDS: PANTOPRAZOLE (EC) 40 MG TAB PO (06:15)
[2019-07-04] MEDS: MAGNESIUM OXIDE 400 MG TAB PO ×2 (08:29→22:03)
[2019-07-04] MEDS: CEFEPIME 1GM/50 ML (PMX) 50 ML IVPB (08:29)
[2019-07-04] MEDS: ZYVOX 600 MG TAB PO (08:30)
[2019-07-04] MEDS: CHOLECALCIFEROL 2,000 UNIT CAP PO (08:30)
[2019-07-04] MEDS: FLUCONAZOLE 100 MG TAB PO (08:30)
[2019-07-04] MEDS: BETHANECHOL 25 MG TAB PO ×3 (08:30→22:02)
[2019-07-04] MEDS: FOLIC ACID 1 MG TAB PO (08:30)
[2019-07-04] MEDS: hydrOXYzine HCL 10 MG TAB PO (22:02)
[2019-07-05 05:27] LABS: ADD MAN DIFF? NO
[2019-07-05 05:41] LABS: WHITE BLOOD COUNT 6.4 10^3/ul (4.8-10.8)
[2019-07-05 05:41] LABS: BASOPHIL # 0.1 10^3/ul (0.0-0.1); BASOPHILS % 1.4 % (0.0-2.0); EOSINOPHILS # 1.2 10^3/ul (0.0-0.5); EOSINOPHILS % 18.3 % (0.0-7.0); HEMATOCRIT 34.2 % (37.0-47.0); HEMOGLOBIN 10.8 g/dl (12.0-16.0); LYMPHOCYTES # 0.6 10^3/ul (0.8-2.9); MEAN CORPUSCULAR HEMOGLOBIN 28.9 pg (29.0-33.0); MEAN CORPUSCULAR HGB CONC 31.6 g/dl (32.0-37.0); MEAN CORPUSCULAR VOLUME 91.4 fl (82.0-101.0); MEAN PLATELET VOLUME 9.2 fl (7.4-10.4); MONOCYTE # 0.3 10^3/ul (0.3-0.9); MONOCYTES % 5.3 % (0.0-11.0); NEUTROPHIL # 4.1 10^3/ul (1.6-7.5); NEUTROPHILS % 64.7 % (39.0-77.0); PLATELET COUNT 244 10^3/UL (140-415); RED BLOOD COUNT 3.74 10^6/ul (4.20-5.40); RED CELL DISTRIBUTION WIDTH 18.7 % (11.5-14.5)
[2019-07-05 06:21] LABS: ANION GAP 12 (5-13); BLOOD UREA NITROGEN 36 mg/dl (7-20); CALCIUM 10.9 mg/dl (8.4-10.2); CARBON DIOXIDE 25 mmol/L (21-31); CHLORIDE 103 mmol/L (97-110); CREATININE 0.92 mg/dl (0.44-1.00); Estimated GFR > 60 mL/min (>60); GLUCOSE 100 mg/dl (70-220); MAGNESIUM 1.3 mg/dl (1.7-2.5); POTASSIUM 4.5 mmol/L (3.5-5.1); SODIUM 140 mmol/L (135-144)
[2019-07-05] MEDS: PANTOPRAZOLE (EC) 40 MG TAB PO (06:42)
[2019-07-05] MEDS: BETHANECHOL 25 MG TAB PO ×3 (08:12→23:47)
[2019-07-05] MEDS: CHOLECALCIFEROL 2,000 UNIT CAP PO (08:12)
[2019-07-05] MEDS: MAGNESIUM OXIDE 400 MG TAB PO ×2 (08:12→23:47)
[2019-07-05] MEDS: FOLIC ACID 1 MG TAB PO (08:12)
[2019-07-05] MEDS ORDERED: SOD CHLORIDE 0.9% 1,000 ML IV (15:00)
[2019-07-05] MEDS: SOD CHLORIDE 0.9% 500 ML IV (16:02)
[2019-07-05] MEDS: MAGNESIUM SULFATE 4 GM/100 ML 100 ML IVPB (18:04)
[2019-07-05] MEDS: hydrOXYzine HCL 10 MG TAB PO (21:00)
== END 2019-07-06 02:40 | disposition home health service (06) | DRG 682 ==
LOC: TEL 21:36 → ICU 06-12 04:47 → 6WM 06-22 18:13 → E/R 17:15
PROC: 02HV33Z Insertion of Infusion Device into Superior Vena Cava, Percutaneous Approach (ICD-10-PCS; principal; 2019-06-13)
PROC: 30233N1 Transfusion of Nonautologous Red Blood Cells into Peripheral Vein, Percutaneous Approach (ICD-10-PCS; 2019-06-21)
DX: N17.9 Acute kidney failure, unspecified (principal); R65.21 Severe sepsis with septic shock; A41.01 Sepsis due to Methicillin susceptible Staphylococcus aureus; J18.9 Pneumonia, unspecified organism; Q43.1 Hirschsprung's disease; K90.9 Intestinal malabsorption, unspecified; E87.1 Hypo-osmolality and hyponatremia; I87.1 Compression of vein; N39.0 Urinary tract infection, site not specified; B95.1 Streptococcus, group B, as the cause of diseases classified elsewhere; D69.6 Thrombocytopenia, unspecified; D50.9 Iron deficiency anemia, unspecified; E86.0 Dehydration; E87.6 Hypokalemia; E86.1 Hypovolemia; E79.0 Hyperuricemia without signs of inflammatory arthritis and tophaceous disease; E83.52 Hypercalcemia; E83.42 Hypomagnesemia; F32.9 Major depressive disorder, single episode, unspecified; I95.9 Hypotension, unspecified; N18.2 Chronic kidney disease, stage 2 (mild); R00.0 Tachycardia, unspecified; R33.9 Retention of urine, unspecified; R10.9 Unspecified abdominal pain; R79.1 Abnormal coagulation profile; Y95 Nosocomial condition; Z90.49 Acquired absence of other specified parts of digestive tract; Z93.2 Ileostomy status
CPT/HCPCS: 36415; 36430; 36569; 71045; 72100; 74176; 76775; 76937; 80048; 80053; 80061; 80076; 81001; 82270; 82533; 82607; 82668; 82728; 82746; 83010; 83540; 83605; 83615; 83735; 83930; 83935; 84100; 84132; 84155; 84165; 84300; 84439; 84443; 84484; 84560; 84703; 85014; 85018; 85025; 85045; 85610; 85730; 86850; 86900; 86901; 86920; 87040-91; 87081; 87086; 93005; 93306; 96374; 96375; 96376; 97110; 97116; 97161; 97164; 97530; 99285-25

== ENCOUNTER 2019-07-19 22:22 | Inpatient (IN) | payer OTHER ==
[2019-07-20] MEDS: ONDANSETRON 4 MG INJ IV (00:54)
[2019-07-20] MEDS: SOD CHLORIDE 0.9% 1,000 ML IV ×5 (00:54→21:30)
[2019-07-20] MEDS: morphine 2 MG INJ IV (00:54)
[2019-07-20] MEDS: CEFEPIME 1GM/50 ML (PMX) 50 ML IVPB ×2 (02:22→15:35)
[2019-07-20] MEDS: MAGNESIUM SULFATE 2 GM/50 ML 50 ML IVPB (03:14)
[2019-07-20] MEDS: POTASSIUM CHLORIDE 50 ML IVPB ×8 (03:14→23:55)
[2019-07-20] MEDS ORDERED: ONDANSETRON 4 MG INJ IV ×2 (07:30→12:00)
[2019-07-20] MEDS ORDERED: POTASSIUM CHLORIDE 40 MEQ in SOD CHLORIDE 0.9% 1,000 ML IV (08:00)
[2019-07-20] MEDS ORDERED: HYDROCODONE/APAP (5/325) TAB PO (12:00)
[2019-07-20] MEDS ORDERED: morphine 2 MG INJ IV (12:00)
[2019-07-20] MEDS ORDERED: NACL 0.9% 3 ML SYG IV (12:00)
[2019-07-21] MEDS: ACETAMINOPHEN 650MG/20.3ML CUP PO (00:12)
[2019-07-21] MEDS: POTASSIUM CHLORIDE 50 ML IVPB ×6 (00:22→23:43)
[2019-07-21] MEDS: CEFEPIME 1GM/50 ML (PMX) 50 ML IVPB ×2 (03:41→14:49)
[2019-07-21] MEDS: PANTOPRAZOLE (EC) 40 MG TAB PO (05:12)
[2019-07-21] MEDS: ENOXAPARIN 30 MG/0.3 ML SYG SC (09:28)
[2019-07-21] MEDS: SOD CHLORIDE 0.9% 1,000 ML IV (11:05)
[2019-07-21] MEDS: AQUAPHOR 52.5 GM OINT TOP (12:17)
[2019-07-21] MEDS: AMOXICILLIN 500 MG CAP PO (17:48)
[2019-07-21] MEDS: LORAZEPAM 2 MG INJ IV (23:48)
[2019-07-22] MEDS: AMOXICILLIN 500 MG CAP PO ×4 (01:00→23:14)
[2019-07-22] MEDS: POTASSIUM CHLORIDE 50 ML IVPB ×7 (01:00→23:08)
[2019-07-22] MEDS: SOD CHLORIDE 0.9% 1,000 ML IV ×5 (06:38→19:20)
[2019-07-22] MEDS: PANTOPRAZOLE (EC) 40 MG TAB PO (06:38)
[2019-07-22] MEDS: ENOXAPARIN 30 MG/0.3 ML SYG SC (08:40)
[2019-07-23] MEDS: SOD CHLORIDE 0.9% 1,000 ML IV ×2 (03:30→05:00)
[2019-07-23] MEDS: PANTOPRAZOLE (EC) 40 MG TAB PO (05:00)
[2019-07-23] MEDS: POTASSIUM CHLORIDE 50 ML IVPB ×2 (06:21→08:33)
[2019-07-23] MEDS: AMOXICILLIN 500 MG CAP PO ×3 (08:33→23:43)
[2019-07-23] MEDS: ENOXAPARIN 30 MG/0.3 ML SYG SC (09:52)
[2019-07-23] MEDS: LORAZEPAM 2 MG INJ IV (23:10)
[2019-07-24] MEDS: PANTOPRAZOLE (EC) 40 MG TAB PO (05:40)
[2019-07-24] MEDS: POTASSIUM CHLORIDE 50 ML IVPB ×2 (06:58→17:11)
[2019-07-24] MEDS: AMOXICILLIN 500 MG CAP PO ×2 (08:25→17:07)
[2019-07-24] MEDS: ENOXAPARIN 30 MG/0.3 ML SYG SC (08:27)
[2019-07-25] MEDS: AMOXICILLIN 500 MG CAP PO ×4 (00:29→23:29)
[2019-07-25] MEDS: LORAZEPAM 2 MG INJ IV ×2 (00:29→23:33)
[2019-07-25] MEDS: PANTOPRAZOLE (EC) 40 MG TAB PO (06:35)
[2019-07-25] MEDS: ENOXAPARIN 30 MG/0.3 ML SYG SC (09:07)
[2019-07-26] MEDS: PANTOPRAZOLE (EC) 40 MG TAB PO (05:13)
[2019-07-26] MEDS: AMOXICILLIN 500 MG CAP PO ×2 (07:41→16:16)
[2019-07-26] MEDS: ENOXAPARIN 30 MG/0.3 ML SYG SC (08:33)
[2019-07-26] MEDS: CHOLECALCIFEROL 2,000 UNIT CAP PO (18:02)
[2019-07-26] MEDS: CYANOCOBALAMIN 1000 MCG INJ SC (18:03)
[2019-07-27] MEDS: AMOXICILLIN 500 MG CAP PO ×3 (00:45→16:32)
[2019-07-27] MEDS: PANTOPRAZOLE (EC) 40 MG TAB PO (05:45)
[2019-07-27] MEDS: CHOLECALCIFEROL 2,000 UNIT CAP PO (08:32)
[2019-07-27] MEDS: hydrOXYzine HCL 10 MG TAB PO (08:32)
[2019-07-27] MEDS: ENOXAPARIN 30 MG/0.3 ML SYG SC (08:41)
[2019-07-27] MEDS: LORAZEPAM 2 MG INJ IV (23:42)
[2019-07-27] MEDS: POTASSIUM CHLORIDE 50 ML IVPB (23:42)
[2019-07-28] MEDS: PANTOPRAZOLE (EC) 40 MG TAB PO (06:02)
[2019-07-28] MEDS: MAGNESIUM SULFATE 2 GM/50 ML 50 ML IVPB (07:06)
[2019-07-28] MEDS: CHOLECALCIFEROL 2,000 UNIT CAP PO (09:51)
[2019-07-28] MEDS: hydrOXYzine HCL 10 MG TAB PO (09:51)
[2019-07-28] MEDS: POTASSIUM CHLORIDE 50 ML IVPB (09:52)
[2019-07-28] MEDS: ENOXAPARIN 30 MG/0.3 ML SYG SC (09:55)
[2019-07-29] MEDS: LORAZEPAM 2 MG INJ IV ×2 (00:10→23:34)
[2019-07-29] MEDS: PANTOPRAZOLE (EC) 40 MG TAB PO (05:32)
[2019-07-29] MEDS: CHOLECALCIFEROL 2,000 UNIT CAP PO (08:19)
[2019-07-29] MEDS: hydrOXYzine HCL 10 MG TAB PO (08:19)
[2019-07-29] MEDS: POTASSIUM CHLORIDE 50 ML IVPB (08:21)
[2019-07-29] MEDS: ENOXAPARIN 30 MG/0.3 ML SYG SC (08:36)
[2019-07-29] MEDS: MAGNESIUM SULFATE 2 GM/50 ML 50 ML IVPB (11:36)
[2019-07-30] MEDS: PANTOPRAZOLE (EC) 40 MG TAB PO (05:50)
[2019-07-30] MEDS: hydrOXYzine HCL 10 MG TAB PO (08:35)
[2019-07-30] MEDS: MAGNESIUM SULFATE 2 GM/50 ML 50 ML IVPB (08:35)
[2019-07-30] MEDS: CHOLECALCIFEROL 2,000 UNIT CAP PO (08:35)
[2019-07-30] MEDS: ENOXAPARIN 30 MG/0.3 ML SYG SC (10:03)
[2019-07-30] MEDS: LORAZEPAM 2 MG INJ IV (23:03)
[2019-07-31] MEDS: PANTOPRAZOLE (EC) 40 MG TAB PO (05:37)
[2019-07-31] MEDS: hydrOXYzine HCL 10 MG TAB PO (09:00)
[2019-07-31] MEDS: MAGNESIUM SULFATE 2 GM/50 ML 50 ML IVPB (09:39)
[2019-07-31] MEDS: CHOLECALCIFEROL 2,000 UNIT CAP PO (09:39)
[2019-07-31] MEDS: ENOXAPARIN 30 MG/0.3 ML SYG SC (09:48)
[2019-07-31] MEDS: LORAZEPAM 2 MG INJ IV (23:34)
[2019-07-31] MEDS: MAGNESIUM OXIDE 400 MG TAB PO (23:34)
[2019-08-01] MEDS: PANTOPRAZOLE (EC) 40 MG TAB PO (05:16)
[2019-08-01] MEDS: MAGNESIUM OXIDE 400 MG TAB PO ×2 (07:58→20:04)
[2019-08-01] MEDS: CHOLECALCIFEROL 2,000 UNIT CAP PO (07:58)
[2019-08-01] MEDS: hydrOXYzine HCL 10 MG TAB PO (07:58)
[2019-08-01] MEDS: ENOXAPARIN 30 MG/0.3 ML SYG SC (08:09)
[2019-08-01] MEDS: POTASSIUM CHLORIDE 50 ML IVPB (10:39)
[2019-08-01] MEDS: MAGNESIUM SULFATE 2 GM/50 ML 50 ML IVPB (12:22)
[2019-08-01] MEDS ORDERED: HEPARIN 1000 UNITS/ML 10 ML INJ (18:36)
[2019-08-01] MEDS: HEPARIN (100 UNITS/ML) 5 ML SYG CATHETER (19:05)
== END 2019-08-01 20:53 | disposition home or self-care (01) | DRG 690 ==
LOC: 6WM 07-22 18:42 → E/R 22:22 → ICU 07-20 02:54
DX: N39.0 Urinary tract infection, site not specified (principal); E87.1 Hypo-osmolality and hyponatremia; E87.3 Alkalosis; I95.9 Hypotension, unspecified; E87.6 Hypokalemia; R33.9 Retention of urine, unspecified; E86.0 Dehydration; R94.31 Abnormal electrocardiogram [ECG] [EKG]; Z93.2 Ileostomy status; F99 Mental disorder, not otherwise specified; E83.42 Hypomagnesemia; E55.9 Vitamin D deficiency, unspecified; D50.8 Other iron deficiency anemias
CPT/HCPCS: 36415; 71045; 80048; 80053; 81001; 83735; 84100; 84132; 84484; 84703; 85025; 85049; 85610; 85670; 85730; 87081; 87086; 93005; 96374; 96375; 97110; 97116; 97162; 97530; 99285-25